=== PATIENT | female | born 1965 | race Caucasian/White ===

== ENCOUNTER 2019-10-14 16:37 | Emergency (ER) | payer OTHER, SELFPAY ==
[2019-10-14] VITALS (19 sets, daily range): BP systolic 111–165; BP diastolic 86–108; PULSE 78–108; RESP 11–24; TEMP 37.6–37.7; O2SAT 93–96
--- NOTE | ~2019-10-14 | XR_ITS ---
EXAMINATION: XR chest 1V portable 10/14/2019 18:18 INDICATION: Dyspnea, cough and fever PROCEDURE: 2 view chest COMPARISON: 05/23/2014 FINDINGS: The lungs are clear. The cardiomediastinal silhouette is within normal limits. There are no pleural effusions. There is no pneumothorax suspected. IMPRESSION: 1: NO ACUTE CARDIOPULMONARY DISEASE. Reviewed, dictated and finalized at location A.
--- NOTE | 2019-10-14 17:02 | ECG_ITS ---
Measurements Intervals [place] Rate: 93 P: 46 [place]: 166 QRS: 32 QRSD: 89 T: 41 QT: 363 QTc: 452 Interpretive Statements SINUS RHYTHM BORDERLINE T WAVE ABNORMALITY- ANTERIOR LEADS BORDERLINE ECG Electronically Signed On 10-15-2019 7:02:43 CDT by Carlos Manuel Viera D.O.
--- NOTE | 2019-10-14 17:15 | ED.SOB ---
HPI - SOB/Dyspnea General Chief Complaint: Shortness of Breath/Dyspnea Stated Complaint: SOB Time Seen by Provider: 10/14/19 17:05 Source: patient Mode of arrival: ambulatory Limitations: no limitations History of Present Illness HPI Narrative: Patient is a 54-year-old female who presents to the emergency department with complaint of cough, shortness of breath, wheezing, low-grade temperature elevation, and myalgias. Patient reports onset of symptoms 3 days ago. 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 Patient has underlying history of asthma and COPD. Patient has been using her albuterol inhaler on occasion, but has not used it today. Someone from [employer] [facility] did called nursing staff and alert they were sending patient in for evaluation. MD elicited complaint: shortness of breath and cough Pertinent past history: COPD and asthma Timing: constant Known history of: COPD and asthma Associated symptoms: fever (Temperature 99-100), cough (Nonproductive), wheezing and other (Myalgias) Related Data Allergies Allergy/AdvReac Type Severity Reaction Status Date / Time ampicillin Allergy Mild Unknown Verified 10/14/19 17:06 Review of Systems Review of Systems: All systems reviewed & are unremarkable except as noted in HPI and below Constitutional: Constitutional: Reports fatigue and Reports fever(s) Respiratory: Respiratory: Reports cough, Reports dyspnea and Reports wheezing Musculoskeletal: Musculoskeletal: Reports myalgias PMFSH Past Medical History Medical History (Updated 10/14/19 @ 19:58 by Sara Ruvalcaba MD) Asthma COPD (chronic obstructive pulmonary disease) Depression Hyperlipidemia Hypertension Obstructive sleep apnea TIA (transient ischemic attack) Surgical History Surgical History (Updated 10/14/19 @ 17:17 by Sara Ruvalcaba MD) History of bilateral breast reduction surgery History of bladder suspension procedure History of sinus surgery History of tonsillectomy Social History Social History (Updated 10/14/19 @ 17:18 by Sara Ruvalcaba MD) Smoking status: Former smoker Additional smoking assessment comments: Quit 1 year ago Gender identity (if verbalized by the patient): Female Exam Const: General: cooperative, no acute distress and alert Nutritional Appearance: well nourished Orientation/consciousness: patient oriented x3 Limitations: no limitations HENMT: Mouth: Yes lip normal and Yes moist mucous membranes Resp: Effort & Inspection: normal respiratory effort Auscultation: wheezes scattered wheezes Cardio: Rate: regular rate Rhythm: regular rhythm GI: GI Palp: Yes Soft to palpation and No Tenderness to palpation present (GI) Auscultation: normal bowel sounds Skin: General skin exam: normal color Neuro: General: patient oriented x3 Cognition (Neuro): normal cognition Speech: normal speech Extrem: General: normal to inspection, full ROM and no clubbing, cyanosis or edema Psych: Mental Status: mental status grossly normal Affect: normal affect Attitude: cooperative Course Course Emergency Course: Patient stable in appearance and appropriate for outpatient management. Coronavirus testing completed given patient works at the [employer] and is symptomatic. Patient with wheezing, but due to limited supply of albuterol inhalers, inhaler treatment not initiated in the emergency department. Patient states she feels like she is breathing okay and has her inhaler in her car and can give herself a dose when she leaves the emergency department. Patient advised to follow-up test results with her primary care provider and to self quarantine. Vital Signs Vital signs: Vital Signs Temperature 99.7 F H 10/14/19 17:02 Pulse Rate 97 10/14/19 17:02 Respiratory Rate 14 10/14/19 17:02 Blood Pressure
[2019-10-14 17:34] LABS: Basophils Absolute Auto 0.1 K/mm3 (0.0-0.1); Basophils Percent Auto 0.9 % (0.2-1.2); Eosinophils Absolute Auto 1.3 K/mm3 (0-0.3); Eosinophils Percent Auto 15.7 % (0-4.4); Hematocrit 44.5 % (37.0-47.0); Hemoglobin 14.9 g/dL (12.0-15.0); Immature Granulocyte Absolute 0.03 K/mm3 (0.00-0.031); Immature Granulocyte Percent A 0.4 % (0-0.5); Lymphocytes Percent Auto 28.4 % (18.3-44.2); Mean Corpuscular HGB Conc 33.5 g/dl (32-36); Mean Corpuscular Hemoglobin 28.1 pg (26-34); Mean Corpuscular Volume 83.8 fl (80-100); Mean Platelet Volume 9.7 fl (7.4-10.4); Monocytes Absolute Auto 0.7 K/mm3 (0.1-0.6); Monocytes Percent Auto 7.8 % (2.6-8.5); Neutrophils Percent Auto 46.8 % (45.5-73.1); Platelet Count Result 316 k/mm3 (150-375); Red Blood Count 5.31 M/mm3 (4.2-5.4); Red Cell Distribution Width 12.7 % (11.5-14.5); White Blood Count 8.5 K/mm3 (4.5-10.0)
[2019-10-14 18:19] LABS: Alanine Aminotransferase 33 U/L (4-35); Albumin Level 4.1 g/dL (3.5-5.1); Alkaline Phosphatase 119 U/L (38-126); Aspartate Amino Transferase 41 U/L (14-36); Bilirubin,Total 0.3 mg/dL (0.2-1.3); Blood Urea Nitrogen 12 mg/dL (7-17); Calcium 9.5 mg/dL (8.4-10.2); Carbon Dioxide 29 mmol/L (22-30); Chloride 101 mmol/L (98-107); Estimated CRCL calculation 77 ml/min; Estimated Glomerular Filt Rate > 60; Glucose 104 mg/dL (65-105); Potassium 3.6 mmol/L (3.4-5.0); Sodium 134 mmol/L (137-145)
[2019-10-15 13:31] LABS: SARS-CoV-2 RNA PCR Negative
== END 2019-10-14 20:43 | disposition home or self-care (01) ==
PROVIDERS: Emergency Provider Emergency Medicine
DX: J44.9 Chronic obstructive pulmonary disease, unspecified (principal); Z20.828 Contact with and (suspected) exposure to other viral communicable diseases; E78.5 Hyperlipidemia, unspecified; I10 Essential (primary) hypertension; G47.33 Obstructive sleep apnea (adult) (pediatric); Z86.73 Personal history of transient ischemic attack (TIA), and cerebral infarction without residual deficits; R94.31 Abnormal electrocardiogram [ECG] [EKG]; Z87.891 Personal history of nicotine dependence
CPT/HCPCS: 36415; 71045; 80053; 85025; 87635; 93005; 99283; U0003

== ENCOUNTER 2022-06-13 12:33 | Emergency (ER) | payer OTHER, SELFPAY ==
--- NOTE | ~2022-06-13 | XR_ITS ---
AP and lateral views of the left hip Clinical history: Pain Findings: No acute fracture or dislocation is seen. Osseous alignment is anatomic. Bilateral hip and SI joint spaces are preserved. Soft tissues are unremarkable. Impression: No significant abnormality is seen. Reviewed, dictated and finalized at location [] ICAL SPECIALIST Impression: No significant abnormality is seen.
--- NOTE | 2022-06-13 12:45 | ED.GENADULT ---
HPI - General Adult General Chief complaint: Unspecified Stated complaint: lt hip pain/denies fall or injury Time Seen by Provider: 06/13/22 13:24 Source: patient, RN notes reviewed and old records reviewed Mode of arrival: ambulatory Limitations: no limitations History of Present Illness HPI narrative: 57-year-old female presents to the [facility] with 5 days of left hip pain. Has tried naproxen, Tylenol and ibuprofen called primary spiritual care coordinator, was told to come to the [facility] for pain management. Walks with a normal gait. No injury. No redness, bruising noted Related Data Allergies Allergy/AdvReac Type Severity Reaction Status Date / Time ampicillin Allergy Mild Unknown Verified 06/13/22 13:47 Review of Systems Review of Systems: All systems reviewed & are unremarkable except as noted in HPI and below Constitutional: Constitutional: Reports no additional constitutional complaints Eyes: Eyes: Reports no additional eye complaints ENT: Reports system reviewed and no additional complaints, except as documented Cardiovascular: Cardiovascular: Reports no additional cardiovascular complaints, Denies chest pain and Denies dyspnea Respiratory: Respiratory: Reports no additional respiratory complaints, Denies chest congestion, Denies cough and Denies dyspnea Gastrointestinal: Gastrointestinal: Reports no additional gastrointestinal complaints, Denies abdominal pain, Denies nausea and Denies vomiting Musculoskeletal: Musculoskeletal: Reports as per HPI and Reports arthralgias ( left hip) Integumentary/Breasts: Skin/Breast: Reports system reviewed and no additional complaints, except as docu Neurologic: Reports system reviewed and no additional complaints, except as documented Psychiatric: Psychiatric: Reports no additional psychiatric complaints Allergic/Immunologic: Allergic/Immunologic: Reports no additional allergic/immunologic complaints PMFSH Past Medical History Medical History Asthma COPD (chronic obstructive pulmonary disease) Depression Hyperlipidemia Hypertension Obstructive sleep apnea TIA (transient ischemic attack) Surgical History Surgical History History of bilateral breast reduction surgery History of bladder suspension procedure History of sinus surgery History of tonsillectomy Social History Social History Smoking status: Former smoker Additional smoking assessment comments: Quit 1 year ago Gender identity (if verbalized by the patient): Female Comments At the time of my signature, I reviewed and agree with the nursing past medical, surgical, social, and family history. There is no relevant family history pertinent to the patient complaint. Exam Const: General: cooperative, healthy appearing, comfortable, no acute distress, well developed, alert and well nourished Nutritional Appearance: well nourished Orientation/consciousness: patient oriented x3 Limitations: no limitations HENMT: Head: normal to inspection Ears: hearing grossly normal bilaterally and external ears normal Face/Nose/Sinus: Normal external nose present, Normal nares present, Normal nasal mucous membranes and turbinates present and normal facial exam Face and sinus: normal facial exam Mouth: Yes Normal oral and palatal mucosa present, Yes lip normal and Yes moist mucous membranes Eyes: General: appearance normal, both eyes and all related structures Alignment and Position: alignment normal Periorbital: periorbital findings normal Conjunctivae: conjunctivae normal Pupils: Equal, round and reactive pupils present EOM: EOMs intact bilaterally Neck: Neck: normal visual inspection, full ROM, no lymphadenopathy and no meningeal signs Chest: Chest palpation & inspection: normal inspection of the chest Resp: Effort & Inspection: normal respiratory eff
[2022-06-13 12:54] VITALS: BP 119/67; PULSE 74; RESP 18; TEMP 36.6; O2SAT 98
== END 2022-06-13 14:12 | disposition home or self-care (01) ==
PROVIDERS: Emergency Provider Nurse Practitioner
DX: M25.552 Pain in left hip (principal); Z87.891 Personal history of nicotine dependence; J44.9 Chronic obstructive pulmonary disease, unspecified; E78.5 Hyperlipidemia, unspecified; I10 Essential (primary) hypertension; Z86.73 Personal history of transient ischemic attack (TIA), and cerebral infarction without residual deficits
CPT/HCPCS: 73502; 99213; G0463

== ENCOUNTER 2024-03-05 11:44 | Emergency (ER) | payer OTHER, SELFPAY ==
--- NOTE | ~2024-03-05 | XR_ITS ---
Clinical Indication: Chest tightness PA and lateral views of the chest: Comparison: 10/14/2019 Findings: The lungs are clear, without evidence of focal consolidation or pleural effusion. Cardiome diastinal silhouette is within normal limits. Bones and soft tissues are unremarkable. Impression: Normal chest. Reviewed, dictated and finalized at location . Impression: Normal chest.
--- NOTE | 2024-03-05 11:46 | ECG_ITS ---
Test Date: 2024-03-05 11:50:28 Measurements Intervals [place] Rate: 80 P: 28 WI: 174 QRS: 11 QRSD: 94 T: 24 QT: 388 QTc: 449 Interpretive Statements SINUS RHYTHM BASELINE ARTIFACT- I, II, III, AVR, AVL, AVF, V1, V3-V6 NORMAL ECG No previous ECG available for comparison Electronically Signed On 03-05-2024 15:25:33 CDT by Carlos Manuel Viera D.O.
[2024-03-05 12:02] LABS: Basophils Absolute Auto 0.1 K/mm3 (0.0-0.1); Basophils Percent Auto 0.8 % (0.2-1.2); Eosinophils Absolute Auto 0.2 K/mm3 (0-0.3); Eosinophils Percent Auto 1.7 % (0-4.4); Hematocrit 41.2 % (37.0-47.0); Hemoglobin 13.7 g/dL (12.0-15.0); Immature Granulocyte Absolute 0.03 K/mm3 (0.00-0.031); Immature Granulocyte Percent A 0.3 % (0-0.5); Lymphocytes Absolute Auto 3.94 K/mm3 (0.9-3.2); Lymphocytes Percent Auto 41.3 % (18.3-44.2); Mean Corpuscular HGB Conc 33.3 g/dl (32-36); Mean Corpuscular Hemoglobin 28.8 pg (26-34); Mean Corpuscular Volume 86.6 fl (80-100); Mean Platelet Volume 8.9 fl (7.4-10.4); Monocytes Absolute Auto 0.8 K/mm3 (0.1-0.6); Neutrophils Absolute Auto 4.6 K/mm3 (1.3-6.7); Neutrophils Percent Auto 47.9 % (45.5-73.1); Platelet Count Result 294 k/mm3 (150-375); Red Blood Count 4.76 M/mm3 (4.2-5.4); Red Cell Distribution Width 13.2 % (11.5-14.5); White Blood Count 9.5 K/mm3 (4.5-10.0)
[2024-03-05 12:12] LABS: Prothrombin Time 13.1 Seconds (11.1-14.7)
[2024-03-05 12:13] LABS: Partial Thromboplastin Time 29.8 Seconds (22.3-36.8)
[2024-03-05 12:15] LABS: Alanine Aminotransferase 43 U/L (6-35); Albumin Level 4.4 g/dL (3.5-5.1); Alkaline Phosphatase 114 U/L (38-126); Anion Gap 9 mmol/L (4-12); Aspartate Amino Transferase 39 U/L (14-36); Bilirubin,Total 0.6 mg/dL (0.2-1.3); Blood Urea Nitrogen 14 mg/dL (7-17); Carbon Dioxide 25 mmol/L (22-30); Chloride 103 mmol/L (98-107); Estimated Glomerular Filt Rate > 60; Glucose 97 mg/dL (65-110); Lipase 65 U/L (23-300); Sodium 137 mmol/L (137-145)
[2024-03-05 12:17] VITALS: BP 144/88; PULSE 76; RESP 16; TEMP 36.6; O2SAT 99
[2024-03-05 12:25] LABS: Troponin I < 0.012 ng/mL (0.000-0.034)
[2024-03-05 13:51] VITALS: BP 143/72; PULSE 65; RESP 18; TEMP 36.3; O2SAT 96
--- NOTE | 2024-03-05 15:18 | ECG_ITS ---
Test Date: 2024-03-05 15:21:40 Measurements Intervals [place] Rate: 67 P: 25 ID: 176 QRS: 10 QRSD: 87 T: 14 QT: 418 QTc: 441 Interpretive Statements SINUS RHYTHM LOW QRS VOLTAGE IN PRECORDIAL LEADS BASELINE ARTIFACT- I, II, III, AVR, AVL, AVF, V1 BORDERLINE ECG Compared to ECG 03/05/2024 11:50:28 Low QRS voltage now present Electronically Signed On 03-05-2024 15:32:45 CDT by Carlos Manuel Viera D.O.
[2024-03-05 15:45] LABS: Troponin I < 0.012 ng/mL (0.000-0.034)
--- NOTE | 2024-03-05 16:57 | ED.CHESTPAIN ---
HPI - Chest Pain General Chief Complaint: Chest Pain Stated Complaint: chest tightness Time Seen by Provider: 03/05/24 16:17 Source: patient and family Mode of arrival: ambulatory Limitations: no limitations History of Present Illness HPI narrative: patient presents with report of chest tightness described assist we see sensation that occurred after she was lying down. She notes that it did not change with position changes despite her trying to get up around anemia takes shower. In total, it lasted approximately 1-1/2 hours. It was associated with dizziness And palpitations. She did note that she became tearful during it she was becoming worried since this had never happened before. It was associated with shortness of breath. No nausea. She does not follow with a sound cutter. Her primary care physician is through [place]. Patient's daughter presents with her who had come home during the event and she noted that her mom seemed anxious and she thought she might be having a panic attack. No history of this happening before. She previously had been told that she had hypertension and was on medication for this but that was many years ago when she was smoking and after quitting smoking and losing weight she was told she did not carry this diagnosis anymore. She does have a diagnosis of hyperlipidemia for which she is on Lipitor. she had a TIA 10 years ago carries a history of atherosclerosis. No personal history of myocardial infarction diabetes mellitus. She does have a history of COPD. No family history of a myocardial infarction before the age of 65. No lower extremity edema. She notes that there have been a lot of stressors in life recently which was also why she felt guilty about laying down 1st place her symptoms 1st started. Related Data Allergies Allergy/AdvReac Type Severity Reaction Status Date / Time ampicillin Allergy Mild Unknown Verified 06/13/22 13:47 [facility] Past Medical History Medical History (Updated 03/06/24 @ 09:16 by Jennifer Bautista MD) Asthma Atherosclerosis COPD (chronic obstructive pulmonary disease) Depression Hyperlipidemia Obstructive sleep apnea TIA (transient ischemic attack) Surgical History Surgical History History of bilateral breast reduction surgery History of bladder suspension procedure History of sinus surgery History of tonsillectomy Social History Social History (Updated 03/06/24 @ 09:18 by Jennifer Bautista MD) Smoking status: Former smoker Additional smoking assessment comments: Quit approx 2018 Gender identity (if verbalized by the patient): Female Exam Narrative: GENERAL: Well-appearing, well-nourished, and in no acute distress. HEAD: Normocephalic, atraumatic. EYES: Non injected, non icteric ENT: Nares clear, no rhinorrhea or epistaxis. NECK: Supple. CHEST: Speaking in full sentences. No respiratory distress. lungs clear to auscultation bilaterally HEART: Regular rate and rhythm. . ABDOMEN: Soft, nondistended. EXTREMITIES: Normal range of motion. No lower extremity edema. SKIN: Warm, dry, no rash. NEURO: No focal deficits. Alert and oriented x3. PSYCH: congruent mood and affect slightly anxious, nearly tearful the with appropriate eye contact and remains calm. Not tremulous. Course Vital Signs Vital signs: Vital Signs Temperature 97.8 F 03/05/24 12:17 Pulse Rate 76 03/05/24 12:17 Respiratory Rate 16 03/05/24 12:17 Blood Pressure 144/88 H 03/05/24 12:17 Pulse Oximetry 99 03/05/24 12:17 Oxygen Delivery Room Air 03/05/24 12:17 Temperature 97.3 F L 03/05/24 13:51 Pulse Rate 65 03/05/24 13:51 Respiratory Rate 18 03/05/24 13:51 Blood Pressure 143/72 H 03/05/24 13:51 Pulse Oximetry 96 03/05/24 13:51 Oxygen Delivery Room Air 03/05/24 15:52 MDM - Chest Pain MDM Narrative Medical decision making narrative: 59-year-old fe
[2024-03-05] MEDS: LORazepam (*CRX) 0.5 MG TABLET PO (17:26)
== END 2024-03-05 17:29 | disposition home or self-care (01) ==
PROVIDERS: Student in an Organized Health Care Education/Training Program; Emergency Provider Student in an Organized Health Care Education/Training Program
DX: R07.89 Other chest pain (principal); R74.01 Elevation of levels of liver transaminase levels; E78.5 Hyperlipidemia, unspecified; Z86.73 Personal history of transient ischemic attack (TIA), and cerebral infarction without residual deficits; J44.9 Chronic obstructive pulmonary disease, unspecified; J45.909 Unspecified asthma, uncomplicated; G47.33 Obstructive sleep apnea (adult) (pediatric); F32.A Depression, unspecified; Z87.891 Personal history of nicotine dependence
CPT/HCPCS: 36415; 71046; 80053; 83690; 84484; 85025; 85610; 85730; 93005; 99284; A9270

== ENCOUNTER 2025-01-08 19:36 | Emergency (ER) | payer OTHER, SELFPAY ==
--- NOTE | ~2025-01-08 | XR_ITS ---
XR knee RT min 4V Ordering provider: Aria Medrano MD History: . injury . Comparison: None. FINDINGS: BONES: No acute fracture or dislocation. JOINT SPACES: Normal. SOFT TISSUES: Normal. IMPRESSION: No acute osseous abnormality right knee. Reviewed, dictated and finalized at location A.
--- OUTSIDE RECORDS SUMMARY | 2025-01-08 19:39 | XMS_ITS | Continuity of Care Document ---
Author Name [facility] Organization [facility] Care Team Providers [facility] [place] Department Manager Name Role Phone [facility] Unavailable Unavailable Problems Combined list of problems from Department of Defense and Veterans Affairs facilities. It does not include entries that were removed or entered in error. Problem Status Onset Date Problem Type Date of Resolution Comments Source History of ischemic stroke Active 025 Diagnosis [facility] Left knee pain Active 025 Diagnosis [facility] Pain of bilateral knee joints Active 025 Diagnosis [facility] Tobacco dependence in remission Active 020 Condition [facility] Multiple nodules of lung Active 019 Condition [facility] Common variable agammaglobulinemia Active 019 Condition [facility] Obstructive sleep apnea syndrome Active 019 Condition [facility] Essential (primary) hypertension Active 015 Condition DoD Hyperlipidemia, unspecified Active 015 Condition DoD Mild persistent asthma, uncomplicated Active 015 Condition DoD Tobacco use Active 015 Condition DoD Major depressive disorder, single episode, unspecified Active 015 Condition DoD Chronic frontal sinusitis Active 011 Condition [facility] Loss of sense of smell Active 011 Condition [facility] Alcohol dependence Active Condition 005 5C-[facility] Astigmatism Active Condition [facility] Chronic allergic conjunctivitis Active Condition [facility] Chronic obstructive pulmonary disease Active Condition [facility]55C[facility] Degenerative disorder of macula Active Condition [facility]ula [facility] Diverticulosis of colon Active Condition [facility] Eczema1 Active Condition Outside So urce Comment: patient has dermatitis of hands not responding to st eroids, needs dermatology evaluation suspect sporiasis 00[facility] Essential hypertension Active Condition [facility] Ganglion cyst of right wrist Active Condition [facility] Genuine stress incontinence Active Condition 5C[facility] Hyperlipidemia Active Condition [facility] Hypermetropia Active Condition [facility] Lactase deficiency2 Active Condition Outside Source Comment: Because patient does not tolerate milk products, she would like to take a calcium supplement. However, she has heard that some of her medications and calcium cannot be taken at the same time. I was not aware of any drug interaction, nor did the program site a drug interaction with this prescription. She will buy calcium citrate for supplement. [facility] Major depressive disorder Active Condition [facility] Moderate persistent asthma Active Condition -[facility] Osteopenia Active Condition [facility] Plantar fasciitis Active Condition 54 C[facility] Refractive error Active Condition Ambul at[facility] Pharmacy Allergic rhinitis, unspecified Active Condition DoD ASTHMA WITH ACUTE EXACERBATION Active Condition DoD Overweight Active Condition DoD ACTINIC KERATOSIS Inactive Condition DoD Administrative Evaluation Services Inactive Condition DoD SINUSITIS Active Condition DoD allergies Active Condition DoD CONJUNCTIVITIS CHRONIC ALLERGIC Active Condition DoD Outpatient Physician Consultation Active Condition DoD joint pain, localized Inactive Condition DoD BREAST LUMP OR MASS Active Condition Do D Patient Education - Asthma Active Condition DoD DISTURBANCE OF SMELL ANOSMIA BILATERALLY Active Condition DoD NICOTINE DEPENDENCE Active Condition Do D Patient Education - Action Plan Asthma Active Condition DoD GANGLION RIGHT WRIST Active Condition D oD REFRACTIVE ERROR - HYPERMETROPIA Active Condition DoD RETINAL DEFECTS WITHOUT DETACHMENT Active Condition DoD changed sexual interest (libido): decreased Active Condition DoD irregular length of menstrual periods Active Condition DoD HYPERTENSION (SYSTEMIC) Active Condition DoD regular cycle intervals less than 21 days Active Condition DoD Laboratory Studies Active Condition DoD ALCOHOL DEPENDENCE (ALCOHOLISM) Active Condition DoD joint pain, localized in the knee Active Condition DoD ESSENTIAL HYPERTENSION Active Condition DoD PREHYPERTENSION Active Condition DoD Wheezing Active Condition DoD Blood Pressure Isolated Elevated Active Condition DoD ROUTINE GYNECOLOGICAL EXAM WITH CERVICAL PAP SMEAR Inactive Condition DoD TMJ pain Inactive Condition DoD OTITIS MEDIA CHRONIC SEROUS BOTH EARS Active Condition Take Zyrtec -D twice a day, salt water gargles DoD blood in urine Active Condition DoD HYPERLIPIDEMIA Active Condition Based on labs from 15 May 2007 DoD MACULAR DEGENERATION NONEXUDATIVE DRY Active Condition L eye DoD ASTIGMATISM - REGULAR Active Condition DoD PRESBYOPIA Active Condition DoD LACTASE DEFICIENCY SYNDROME Active Condition Because patient does not tolerate milk products, she would like to take a calcium supplement. However, she has heard that some of her medications and calcium cannot be taken at the same time. I was not aware of any drug interaction, nor did the program site a drug interaction with this prescription. She will buy calcium citrate for supplement. 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 Pt instructed to contact his office for order. DoD visit for: refer patient without exam or treatment Inactive Condition DoD BRONCHITIS Inactive Condition DoD Preventive Medicine Estab Patient Checkup Adult 40-64 Inactive Condition pt due f or annual labs DoD ASTHMA MODERATE PERSISTENT Active Condition DoD ASTHMATIC BRONCHITIS Active Condition D oD ALLERGIC RHINITIS Active Condition DoD DEPRESSION Active Condition DoD visit for: issue repeat prescription Inactive Condition [facility] visit for: screening exam for malignant neoplasm cervix Active Condition [facility] visit for: issue repeat prescription for medication Inactive Condition 7 RX CETIRIZINE/P-E PHED (ZYRTEC-D 12 HOUR)--P ~TD RF1 #180 DS30 on 20 Jan 2007@1504 ~HCP Sig.Needed . . . . . . . . . . . . . . sPETERC 24JUL@1505 DoD STRESS INCONTINENCE Active Condition Do D ECZEMATOID DERMATITIS Active Condition patient has dermatitis of hands not responding to steroids, needs dermatology evaluation suspect sporiasis DoD exposed to tuberculosis Inactive Condition will perform tb testing [facility] Medications Combined list of outpatient medications from Department of Defense and Veterans Affairs facilities.Medications provided include 1) outpatient medications from the last 15 months, and 2) patient-reported medications. Medication Details Route Status Patient Instructions Prescription Expires Prescription Number Last Dispense Date Ordering Provider Order Date Order Qty Source Albuterol (Eqv-ProAir HFA) 90 mcg/inh inhalation aerosol 2 puff(s), Inhale, every 6 hr, 0 total refill(s ), Maintena nce Inhala tion (breat he in) Discont inued 01/13/20242023 [facility] Albuterol (Eqv-Proven til HFA) 90 mcg/inh inhalation aerosol 6 g, 0 Refill(s ), INHALE 2 PUFFS BY MOUTH EVERY 4 HOURS NEEDED, 0 total refill(s ), Soft Stop Discont inued 03/06/20242023 0055C[facility]3 [facility] albuterol 90 mcg/inh aerosol inhaler 2 puff(s), Inhale, every 4 hr, PRN wheezing as needed for, # 8.5 g, 1 total refill(s ), Maintena nce, 8.5g = 1 inhaler, Pharmacy : [facility] #[id number] Inhala tion (breat he in) Ordered 2023 8.5 0055C[facility]3 [facility] albuterol 90 mcg/inh aerosol inhaler 0 Refill(s ), 0 total refill(s ), Soft Stop Discont inued 03/06/20242023 0055C-[address] [place] [address] Christopher ARIPiprazol e 5 mg oral tablet 30 EA, 0 Refill(s ), 0 total refill(s ), Soft Stop Discont inued 01/13/20242023 0055C[facility]3 [facility] Christopher atorvastati n 20 mg oral tablet 90 tab(s), 0 Refill(s ), 0 total refill(s ), Soft Stop Discont inued 01/13/20242023 0055C[facility] atorvastati n 20 mg oral tablet TAKE ONE TABLET BY MOUTH EVERY DAY, # 90 EA, 3 total refill(s ), Acute Complet ed 07/11/2023 3 2023 90.0 Ambulat ory Pharmac y benzocaine 20% mucous membrane gel 1 appl(s), Topical, QID, PRN pain, # 11.9 g, 0 total refill(s ), Acute, 01/13/24 10:24:10 AM CDT, Pharmacy : [facility] #[id number] Topica l (on the skin) Discont inued 01/13/20242023 11.9 0055C-[address] [place] [address] brexpiprazo le Oral, Daily, 0 total refill(s ), Maintena nce Oral (given by mouth) Discont inued 01/13/20242023 0055C-[address] [place] [address] Christopher budesonide 0.5 mg/2 mL inhalation suspension 3 Refill(s ), 0 total refill(s ), Soft Stop Discont inued 01/13/20242023 0055C[facility]3 [facility] Christopher budesonide- formoterol 160 mcg-4.5 mcg/inh inhalation aerosol 3 Refill(s ), 0 total refill(s ), Soft Stop Discont inued 01/13/20242023 0055C-[address] [place] [address] Christopher calcium carbonate 600 mg oral tablet, chewable tab(s), Chew, Daily, 0 total refill(s ), Maintena nce Chew Ordered 2023 0055C-[address] [place] [address] Christopher cariprazine 1.5 mg oral capsule 3 mg, oral, 0 Refill(s ), 0 total refill(s ), Soft Stop Discont inued 01/13/20242023 0055C-[address] [place] [address] [facility] citalopram 40 mg oral tablet 1 tab(s), Oral, Daily, # 30 tab(s), 0 total refill(s ), Maintena nce Oral (given by mouth) Ordered 2023 30.0 0055C-[address] [place] [address] [facility] CITALOPRAM HBR (CITALOPRAM HYDROBROMID E), 40MG, TABLET, ORAL, [facility], 500 ea. BOTTLE Cancele d [id number] : 2023 0 Pharmac y Data Transac tion Service Facilit y doxycycline hyclate 100 mg oral capsule 1 cap(s), Oral, BID, Take with plenty of water. Avoid lying down for at least 30 minutes after taking medicati on., X 7 days, # 14 cap(s), 0 total refill(s ), Acute, 03/04/24 4:02:00 PM CDT, Pharmacy : [facility] , Other (Please specify in comments ) Oral (given by mouth) Complet ed 03/04/2024 2023 14.0 0055C[facility] dupilumab (Dupixent) Pre-filled Pen 300 mg/2 mL subcutaneou s solution 300 mg, SubCutan eous, every 2 wk, # 4 mL, 0 total refill(s ), Maintena nce SubCut aneous (under the skin) Discont inued 01/13/20242023 4.0 0055C[facility] dupilumab (Dupixent) Pre-filled Syringe 300 mg/2 mL subcutaneou s solution 8 syringe( s), 0 Refill(s ), 0 total refill(s ), Soft Stop Discont inued 01/13/20242023 0055C[facility]3 [facility] Dupixent 0 total refill(s ), Maintena nce Ordered 2023 0055C[facility]3 [facility] Fish Oil oral capsule 1 cap(s), Oral, Daily, # 100 cap(s), 0 total refill(s ), Maintena nce Oral (given by mouth) Ordered 2023 100.0 0055C[facility]3 [facility] ibuprofen 200 mg oral tablet oral, 0 Refill(s ), 0 total refill(s ), Soft Stop Ordered 2023 0055C[facility]3 [facility] lamoTRIgine (blue dose pack) 25 mg oral tablet 25 mg, Oral, BID, 0 total refill(s ), Maintena nce Oral (given by mouth) Ordered 2024 0055C-3 [facility] Lipitor 20 mg oral tablet 1 tab(s), Oral, Daily, for choleste rol, # 90 tab(s), 3 total refill(s ), Maintena nce Oral (given by mouth) Ordered 2023 90.0 0055C-3 [facility] magnesium glycinate 200 mg oral tablet tab(s), Oral, 0 total refill(s ), Maintena nce Oral (given by mouth) Ordered 2023 0055C[facility]3 [facility] meloxicam 7.5 mg oral tablet 1 tab(s), Oral, every day at bedtime, # 14 tab(s), 0 total refill(s ), Maintena nce, Pharmacy : [facility] Oral (given by mouth) Ordered 5 2024 14.0 0055C-[address] [place] [address] [facility] mepolizumab (Nucala) 100 mg subcutaneou s injection vial 100 mg, SubCutan eous, every 4 wk, # 1 EA, 0 total refill(s ), Maintena nce SubCut aneous (under the skin) Discont inued 01/13/20242023 1.0 0055C-[address] [place] [address] [facility] mepolizumab (Nucala) Prefilled Syringe 100 mg/mL subcutaneou s solution 1 syringe( s), 0 Refill(s ), 0 total refill(s ), Soft Stop Discont inued 03/06/20242023 0055C-[address] [place], [place] [address]M[facility] multivitami n adult, oral tablet Oral, Daily, 0 total refill(s ), Maintena nce Oral (given by mouth) Ordered 2023 0055C-[address] [place] [address] Christopher NUCALA (mepolizuma b), 100 MG/ML, SYRINGE, SUBCUT, GLAXOSMITHK LINE, 1 ml SYRINGE Active [id number] 4 2023 1 Pharmac y Data Transac tion Service Facilit y NUCALA (mepolizuma b), 100 MG/ML, SYRINGE, SUBCUT, GLAXOSMITHK LINE, 1 ml SYRINGE Active [id number] 4 2023 1 Pharmac y [facility] t[facility] Service [facility] y Probiotic 10 Ultra Strength Oral, Daily, 0 total refill(s ), Maintena nce Oral (given by mouth) Ordered 2023 0055C-[address] [place] [address] [facility] Trelegy Ellipta 200 mcg-62.5 mcg-25 mcg/inh inhalation powder 1 puff(s), Inhale, Daily, # 60 EA, 0 total refill(s ), Maintena nce, quantity of 60 EA = 30 day supply Inhala tion (breat he in) Discont inued 07/30/20242024 60.0 0055C-[address] [place] [address] [facility] Vitamin B12 0 total refill(s ), Maintena nce Ordered 2023 [facility] Vitamin D2 1.25 mg (50,000 intl units) oral capsule 1.25 mg, Oral, every week, # 12 cap(s), 0 total refill(s ), Maintena nce, 12 caps = 90-day supply, Pharmacy : [facility] Oral (given by mouth) Discont inued 07/30/2024 4 2024 12.0 [facility] Vitamin D3 0 total refill(s ), Maintena nce Ordered 2023 [facility] Vitamin D3 125 mcg (5000 intl units) oral capsule 1 cap(s), Oral, Daily, with food, # 90 cap(s), 2 total refill(s ), Maintena nce, Pharmacy : [facility] Oral (given by mouth) Ordered 4 2023 90.0 [facility]55C[facility] Vraylar 1.5 mg oral capsule 30 EA, 0 Refill(s ), 0 total refill(s ), Soft Stop Discont inued 01/13/20242023 [facility] Allergies, Adverse Reactions, Alerts Combined list of allergies from Department of Defense and Veterans Affairs facilities. It does not include entries that were removed or entered in error. Substance Category Reaction Severity Reaction type Status Date Reported Comments Source ampicillin Propensity to adverse reactions to drug Rash Active 3 Unknown Organizatio n AMPICILLIN (AMPICILLIN TRIHYDRATE) Drug allergy (disorder) Rash active 3 [employer] Immunizations Combined list of available immunizations from the Department of Defense and Veterans Affairs facilities. Immunization Series Date Given Administered By Site Reaction Lot Number CVX Code Drug Machine Hose Cutter Status Comments Source zoster vaccine, inactivated 2022 DARLENERBRUNN ER 187 complet ed Result Comment: Route: Unknown Manufactu rer: OT (SKB) [facility] influenza, injectable, quadrivalent- pf 2022 DARLENERBRUNN ER 150 complet ed Result Comment: Route: Unknown Manufactu rer: OTH (SKB) 0055C[facility] Influenza, inj, MDCK, quadrivalent- pf 2021 DARLENERBRUNN ER 171 complet ed Result Comment: Route: Unknown Manufactu rer: [facility] (SEQ) 5C[facility]3 [facility] COVID Vaccine Moderna 2020 207 complet ed COVID Vaccine Moderna 06/07/21 Given Ambulat ory Pharmac y COVID-19, mRNA, LNP-S, PF, 100 mcg or 50 mcg dose 2020 ERLINDA Moderna [employer], Inc. (MOD) Not Given COVID-19, mRNA, LNP-S, PF, 100 mcg or 50 mcg dose DoD influenza, injectable, quadrivalent- pf 2020 DARLENERBRUNN ER [id number] 150 complet ed Result Comment: Manufactu rer: [employer] 5C[facility]3 [facility] COVID Vaccine Pfizer 2020 DARLENERBRUNN ER 208 complet ed Result Comment: Unit: Unknown Manufactu rer: Pfizer Manufactu [facility] (PFR) 5C-3 [facility] COVID-19, mRNA, LNP-S, PF, 30 mcg/0.3 mL dose 2020 [place] (PFR) Not Given COVID-19, mRNA, LNP-S, PF, 30 mcg/0.3 mL dose DoD COVID Vaccine Moderna 2020 zzRig Arm [id number] 207 complet ed COVID Vaccine Moderna 09/06/20 Given Ambulat ory Pharmac y SARS-COV-2 (COVID-19) vaccine, mRNA, spike protein, LNP, preservative free, 100 mcg or 50 mcg dose 1 2020 Unknown, Provider [id number] 207 Moderna [employer], Inc. (MOD) complet ed SARS-COV- 2 (COVID-19 ) vaccine, mRNA, spike protein, LNP, preservat liseth free, 100 mcg or 50 mcg dose DoD COVID Vaccine Moderna 2020 zzRig ht Arm [id number] 207 complet ed COVID Vaccine Moderna 08/09/20 Given Ambulat ory Pharmac y COVID Vaccine Moderna 2020 [id number] complet ed COVID Vaccine Moderna 08/09/20 Given Ambulat ory Pharmac y SARS-COV-2 (COVID-19) vaccine, mRNA, spike protein, LNP, preservative free, 100 mcg or 50 mcg dose 1 2020 Unknown, Provider [id number] 207 Moderna [employer] (MOD) complet ed SARS-COV- 2 (COVID-19 ) vaccine, mRNA, spike protein, LNP, preservat liseth free, 100 mcg or 50 mcg dose DoD influenza, injectable, quadrivalent- pf 2018 [facility] [id number] 150 [employer] complet ed influenza , injectabl e, quadrival ent-pf 05/20/19 Given Ambulat ory Pharmac y influenza, injectable, quadrivalent- pf 2018 [id number] 150 [employer] complet ed influenza , injectabl e, quadrival ent-pf 05/20/19 Given Ambulat ory Pharmac y Influenza, injectable, quadrivalent, preservative free 1 2018 Unknown, Provider [id number] 150 [employer] (SEQ) complet ed Influenza , injectabl e, quadrival ent, preservat liseth free DoD influenza, injectable, quadrivalent- pf [id number] [employer] complet ed influenza , injectabl e, quadrival ent-pf 04/03/18 Given Ambulat ory Pharmac y influenza, injectable, quadrivalent- pf 2017 [id number] 150 [employer] complet ed influenza , injectabl e, quadrival ent-pf 04/03/18 Given Ambulat ory Pharmac y Influenza, injectable, quadrivalent, preservative free 1 2017 Unknown, Provider [id number] 150 [employer] (SEQ) complet ed Influenza , injectabl e, quadrival ent, preservat liseth free DoD Influenza, inj, MDCK, quadrivalent- pf 2016 zzLef t Arm [id number] 171 [employer] complet ed Influenza , inj, MDCK, quadrival ent-pf 04/09/17 Given Ambulat ory Pharmac y Influenza, inj, MDCK, quadrivalent- pf [id number] 171 [employer] complet ed Influenza , inj, MDCK, quadrival ent-pf 04/09/17 Given Ambulat ory Pharmac y Influenza, injectable, Madin [employer]augh Canine Kidney, preservative free, quadrivalent 1 2016 Unknown, Provider [id number] 171 [employer] (SEQ) complet ed Influenza , injectabl e, Madin [employer]augh Canine Kidney, preservat liseth free, quadrival ent DoD pneumococcal polysaccharid e, 23 valent 2016 zzRig ht Arm [id number] 33 Merck & Company Inc complet ed pneumococ tony polysacch aride, 23 valent 07/30/16 Given Ambulat ory Pharmac y pneumococcal polysaccharid e, 23 valent 2016 [id number] 33 Merck & Company Inc complet ed pneumococ tony polysacch aride, 23 valent 07/30/16 Given Ambulat ory Pharmac y pneumococcal polysaccharid e vaccine, 23 valent 1 2016 Unknown, Provider [id number] 33 Merck (MSD) complet ed pneumococ tony polysacch aride vaccine, 23 valent DoD tetanus, diphtheria, acellular pertu is 2015 zzL t Arm [id number] 115 GlaxoSmithKli ne complet ed tetanus, diphtheri a, acellular pertussis 05/20/16 Given Ambulat ory Pharmac y tetanus, diphtheria, acellular pertu is 2015 [id number] [employer]oSmithK[employer] ne complet ed tetanus, diphtheri a, acellular pertussis 05/20/16 Given Ambulat ory Pharmac y tetanus toxoid, reduced diphtheria toxoid, and acellular pertu is vaccine, adsorbed 1 2015 Unknown, Provider [id number] [facility] (SKB[facility] complet ed tetanus toxoid, reduced diphtheri a toxoid, and acellular pertussis vaccine, adsorbed DoD Influenza, inj, MDCK, quadrivalent- pf 2015 171 [employer] complet ed Influenza , inj, MDCK, quadrival ent-pf 04/02/16 Given Ambulat ory Pharmac y Influenza, injectable, MDCK, preservative free, quadrivalent 2015 ALUL, () Not Given Influenza , injectabl e, MDCK, preservat liseth free, quadrival ent DoD Influenza, inj, MDCK, quadrivalent- pf 2015 MS.DANIELnDAW SCHULTZ [id number] 171 complet ed Result Comment: Manufactu rer: [employer] 0055C-[address] [place] [address] influenza, live, intranasal,qu adrivalent 2013 [id number] 149 Medimmune Inc comple t ed influenza , live, intranasa l,quadriv alent 04/22/14 Given Ambulat ory Pharmac y influenza, live, intranasal,qu adrivalent 2013 [id number] 149 Medimmune Inc comple t ed influenza , live, intranasa l,quadriv alent 04/22/14 Given Ambulat ory Pharmac y influenza, live, intranasal, quadrivalent 1 2013 Unknown, Provider [id number] 149 MedImmune, Inc. (MED) complet ed influenza , live, intranasa l, quadrival ent DoD influenza, seasonal, injectable 2012 zzLef t Arm [id number] 141 sanofi pasteur complet ed influenza , seasonal, injectabl e 04/21/13 Given Ambulat ory Pharmac y influenza, seasonal, injectable 2012 [id number] 141 sanofi pasteur complet ed influenza , seasonal, injectabl e 04/21/13 Given Ambulat ory Pharmac y Influenza, seasonal, injectable 11 2012 Unknown, Provider [id number] 141 Sanofi Pasteur ([facility]) complet ed Influenza , seasonal, injectabl e DoD influenza virus vaccine,split 2008 zzLef t Arm [id number] 15 sanofi pasteur complet ed influenza virus vaccine,s plit 03/22/09 Given Ambulat ory Pharmac y influenza virus vaccine,split 2008 [id number] 15 sanofi pasteur complet ed influenza virus vaccine,s plit 03/22/09 Given Ambulat ory Pharmac y influenza virus vaccine, split virus (incl. purified surface antigen)-reti red CODE 1 2008 Unknown, Provider [id number] 15 Sanofi Pasteur ([facility]) complet ed influenza virus vaccine, split virus (incl. purified surface antigen)- retired CODE DoD influenza virus vaccine,split 2007 zzLef t Arm [id number] 15 GlaxoSmithKli ne complet ed influenza virus vaccine,s plit 05/19/08 Given Ambulat ory Pharmac y influenza virus vaccine, split virus (incl. purified surface antigen)-reti red CODE 1 2007 Unknown, Provider [id number] 7AA 15 [facility] (SKB) complet ed influenza virus vaccine, split virus (incl. purified surface antigen)- retired CODE DoD influenza virus vaccine,split [facility] [id number] 15 GlaxoSmithKli ne complet ed influenza virus vaccine,s plit 05/01/07 Given Ambulat ory Pharmac y influenza virus vaccine,split 2006 [id number] 3AA 15 GlaxoSmithKli ne complet ed influenza virus vaccine,s plit 05/01/07 Given Ambulat ory Pharmac y influenza virus vaccine, split virus (incl. purified surface antigen)-reti red CODE 1 2006 Unknown, Provider [id number] 15 [place]) complet ed influenza virus vaccine, split virus (incl. purified surface antigen)- retired CODE DoD influenza virus vaccine,split [facility] [id number] 4AA 15 GlaxoSmithKli ne complet ed influenza virus vaccine,s plit 08/25/06 Given Ambulat ory Pharmac y influenza virus vaccine,split 2006 [id number] 4AA 15 GlaxoSmithKli ne complet ed influenza virus vaccine,s plit 08/25/06 Given Ambulat ory Pharmac y influenza virus vaccine, split virus (incl. purified surface antigen)-reti red CODE 1 2006 Unknown, Provider [id number] 4AA 15 [facility] (SK) complet ed influenza virus vaccine, split virus (incl. purified surface antigen)- retired CODE DoD influenza virus vaccine,split 2004 [facility] Arm [id number] 15 sanofi pasteur complet ed influenza virus vaccine,s plit 06/05/05 Given Ambulat ory Pharmac y influenza virus vaccine, split virus (incl. purified surface antigen)-reti red CODE 1 2004 Unknown, Provider [id number] 15 Sanofi Pasteur ([facility]) complet ed influenza virus vaccine, split virus (incl. purified surface antigen)- retired CODE [facility] influenza virus vaccine, whole virus 2003 [facility] Arm [id number] 16 sanofi pasteur complet ed influenza virus vaccine, whole virus 05/08/04 Given Ambulat ory Pharmac y influenza virus vaccine, whole virus 2003 [id number] 16 sanofi pasteur complet ed influenza virus vaccine, whole virus 05/08/04 Given Ambulat ory Pharmac y influenza virus vaccine, whole virus 1 2003 Unknown, Provider [id number] 16 Sanofi Pasteur ([facility]) complet ed influenza virus vaccine, whole virus DoD influenza virus vaccine, whole virus 2002 16 complet ed influenza virus vaccine, whole virus 05/17/03 Given Ambulat ory Pharmac y influenza virus vaccine, whole virus 2 2002 Unknown, Provider 16 Transcribed (TRS) complet ed influenza virus vaccine, whole virus DoD tuberculin purified protein derivative 2002 [id number] 96 sanofi pasteur complet ed tuberculi n purified protein derivativ e 05/03/03 Given Ambulat ory Pharmac y tuberculin purified protein derivative 2000 [id number] 96 sanofi pasteur complet ed tuberculi n purified protein derivativ e 04/22/01 Given Ambulat ory Pharmac y tuberculin purified protein derivative 2000 zzLef t Arm [id number] 96 sanofi pasteur complet ed Patient Tolerance : Negative Ambulat ory Pharmac y tuberculin skin test; purified protein derivative solution, intradermal 1 2000 Unknown, Provider [id number] Sanofi Pasteur ([facility]) complet ed tuberculi n skin test; purified protein derivativ e solution, intraderm al DoD influenza virus vaccine, whole virus 2000 zzLef t Arm [id number] 16 sanofi pasteur complet ed influenza virus vaccine, whole virus 04/09/01 Given Ambulat ory Pharmac y yellow fever vaccine 2000 zzLef t Arm [id number] 37 sanofi pasteur complet ed yellow fever vaccine 04/09/01 Given Ambulat ory Pharmac y typhoid vaccine, inactivated 2000 zzLef t Arm [id number] [facility] complet ed typhoid vaccine, inactivat ed 04/09/01 Given Ambulat ory Pharmac y yellow fever vaccine 2000 [id number] 37 sanofi pasteur complet ed yellow fever vaccine 04/09/01 Given Ambulat ory Pharmac y typhoid vaccine, inactivated 2000 [id number] [facility] complet ed typhoid vaccine, inactivat ed 04/09/01 Given Ambulat ory Pharmac y influenza virus vaccine, whole virus 2000 [id number] 16 sanofi pasteur complet ed influenza virus vaccine, whole virus 04/09/01 Given Ambulat ory Pharmac y influenza virus vaccine, whole virus 1 2000 Unknown, Provider [id number] 16 Sanofi Pasteur ([facility]) complet ed influenza virus vaccine, whole virus DoD yellow fever vaccine 1 2000 Unknown, Provider [id number] Sanofi Pasteur ([facility]) complet ed yellow fever vaccine DoD typhoid vaccine, parenteral, other than acetone-kille d, dried 1 2000 Unknown, Provider [id number] Milana[employer] (CON) complet ed typhoid vaccine, parentera l, other than acetone-k illed, dried DoD influenza virus vaccine, whole virus 2000 Fabian t Arm [id number] [employer] complet ed influenza virus vaccine, whole virus 08/12/00 Given Ambulat ory Pharmac y influenza virus vaccine, whole virus 2000 [id number] [employer] complet ed influenza virus vaccine, whole virus 08/12/00 Given Ambulat ory Pharmac y influenza virus vaccine, whole virus 1 2000 Unknown, Provider [id number] Pineda (EVN) complet ed influenza virus vaccine, whole virus DoD hepatitis A adult vaccine 1999 52 complet ed hepatitis A adult vaccine 11/27/99 Given Ambulat ory Pharmac y tetanus-dipht h toxoids (Td) adult/adol 1999 09 complet ed tetanus-d iphth toxoids (Td) adult/ado l 11/27/99 Given Ambulat ory Pharmac y tetanus-dipht h toxoids (Td) adult/adol 1999 09 complet ed tetanus-d iphth toxoids (Td) adult/ado l 11/27/99 Given Ambulat ory Pharmac y tetanus and diphtheria toxoids, adsorbed, preservative free, for adult use (2 Lf of tetanus toxoid and 2 Lf of diphtheria toxoid) 1 1999 Unknown, Provider 09 () complet ed tetanus and diphtheri a toxoids, adsorbed, preservat liseth free, for adult use (2 Lf of tetanus toxoid and 2 Lf of diphtheri a toxoid) DoD hepatitis A vaccine, adult dosage 2 1999 Unknown, Provider 52 () complet ed hepatitis A vaccine, adult dosage DoD hepatitis A adult vaccine 1998 [id number] [employer] complet ed hepatitis A adult vaccine 05/07/99 Given Ambulat ory Pharmac y influenza virus vaccine, whole virus 1998 [id number] [employer] complet ed influenza virus vaccine, whole virus 05/07/99 Given Ambulat ory Pharmac y hepatitis A adult vaccine 1998 [id number] [employer] complet ed hepatitis A adult vaccine 05/07/99 Given Ambulat ory Pharmac y influenza virus vaccine, whole virus 1 1998 Unknown, Provider [id number] 16 [employer] (CON) complet ed influenza virus vaccine, whole virus DoD hepatitis A vaccine, adult dosage 1 1998 Unknown, Provider [id number] Merck (MSD) complet ed hepatitis A vaccine, adult dosage DoD poliovirus vaccine, live, oral 1989 02 complet ed polioviru s vaccine, live, oral 02/09/90 Given Ambulat ory Pharmac y poliovirus vaccine, live, oral 1989 02 complet ed polioviru s vaccine, live, oral 02/09/90 Given Ambulat ory Pharmac y trivalent poliovirus vaccine, live, oral 1 1989 Unknown, Provider 02 () complet ed trivalent polioviru s vaccine, live, oral [facility] tetanus-dipht h toxoids (Td) adult/adol 1989 09 complet ed tetanus-d iphth toxoids (Td) adult/ado l 01/01/90 Given Ambulat ory Pharmac y tetanus-dipht h toxoids (Td) adult/adol 1989 09 complet ed tetanus-d iphth toxoids (Td) adult/ado l 01/01/90 Given Ambulat ory Pharmac y tetanus and diphtheria toxoids, adsorbed, preservative free, for adult use (2 Lf of tetanus toxoid and 2 Lf of diphtheria toxoid) 1 1989 Unknown, Provider 09 () complet ed tetanus and diphtheri a toxoids, adsorbed, preservat liseth free, for adult use (2 Lf of tetanus toxoid and 2 Lf of diphtheri a toxoid) [facility] Results Combined list of recent chemistry, hematology and other laboratory results from Department of Defense and [facility], ranging from 15 months to all on record, depending upon the facility. Order Name Results Value Reference Range Date Interpretation Specimen Comments Source Chemistr y Vitamin D 25 OH 29.0 ng/mL 30.0 - 100.0 06/14 L Interpretiv e Data: Classificat ion of Vitamin D Status: Deficient: <20 ng/mL Insufficien t: 20-29 ng/mL Sufficient: 30-100 ng/mL Possible Toxicity: >100 ng/mL This assay is for the quantitativ e determinati on of total 25 (OH) vitamin D. It is intended as an aid in the determinati on of vitamin D sufficiency . Results should always be interpreted in conjunction with the patient's medical history, clinical presentatio n, and other findings. Testing performed by [employer] EPILAB Chemistr y Vitamin D 25 OH 14.0 ng/mL 30.0 - 100.0 01/19 L Interpretiv e Data: Classificat ion of Vitamin D Status: Deficient: <20 ng/mL Insufficien t: 20-29 ng/mL Sufficient: 30-100 ng/mL Possible Toxicity: >100 ng/mL This assay is for the quantitativ e determinati on of total 25 (OH) vitamin D. It is intended as an aid in the determinati on of vitamin D sufficiency . Results should always be interpreted in conjunction with the patient's medical history, clinical presentatio n, and other findings. Testing performed by [employer] FSAM EPILAB Chemistr y Triglyceri nura 270 mg/dL 7 - 149 01/19 H Interpretiv e Data: AGES 0-9: Desirable: < 75 mg/dL Borderline High: 75-99 mg/dL High: >/= 100 mg/dL AGES 10-19: Desirable: < 90 mg/dL Borderline High: 90-129 mg/dL High: >/= 130 mg/dL ADULTS: Desirable: < 150 mg/dL Borderline High: 150-199 mg/dL High: >/= 240 mg/dL Very High: >/= 500 mg/dL [facility] Chemistr y LDL/HDL 2 01/19 [facility] Chemistr y Chol/HDL 3 mg/dL 01/19 [facility] Chemistr y Cholestero l Total 146 mg/dL 01/19 N Interpretiv e Data: According to the [place] [employer] : AGES 0-19: Desirable: < 170 mg/dL Borderline High: 170-199 mg/dL High Blood Cholesterol : >/= 200 mg/dL ADULTS: Desirable < 200 mg/dL Borderline High: 200-239 mg/dL High Blood Cholesterol : >/= 240 mg/dL [facility] Chemistr y HDL Cholestero l 46 mg/dL 40 - 59 01/19 N Interpretiv e Data: HDL (HIGH DENSITY LIPOPROTEIN ): ADULTS: Low: < 40 mg/dL High: >/= 60 mg/dL AGES 0 -19: Low: < 40 mg/dL Borderline Low: 40 - 45 mg/dL Acceptable: > 45 mg/dL [facility] Chemistr y LDL 108 mg/dL 100 - 130 01/19 N Interpretiv e Data: AGES 0-19: Desirable: < 110 mg/dL Borderline High: 110-129 mg/dL High: >/= 130 mg/dL ADULTS: Desirable: <100 mg/dL Near/above optimal: 100-130 mg/dL Borderline High: 131-159 mg/dL High: 160-189 mg/dL Very High: 190 mg/dL [facility] AP Specimen s HPV Typing High Risk Negative 12 (01/13/24 11:22 AM) 01/12 N Interpretiv e Data: HPV Typing High Risk Negative: NEGATIVE for concurrentl y detecting the rest of the 12 high risk types HPV DNA (31,33,35,3 9,45,51,52, 56,58,59,66 and 68) without differentia tion. HPV Typing High Risk Positive: POSITIVE for concurrentl y detecting the rest of the 12 high risk types HPV DNA (31,33,35,3 9,45,51,52, 56,58,59,66 and 68) without differentia tion. The jia HPV Test is a qualitative in vitro test for the detection Human Papillomavi bashir in clinician-c ollected cervical and vaginal specimens. It detects the following high-risk HPV types 16, 18, 31, 33, 35, 39, 45, 51, 52, 56, 58, 66, and 68. Note: The modificatio n to specimen source of vaginal was developed and its performance characteris tics determined by [facility], [facility]. Vaginal source has not been cleared or approved by the U. S. Food and Drug Administrat [employer]. This modified vaginal specimen HPV test is for clinical purposes. This laboratory is certified under the Clinical Laboratory Improvement Amendments of 1988 (CLIA-88) as qualified to perform high complexity clinical laboratory testing. Clinician collected PreservCyt ThinPrep vaginal specimen are an approved additional specimen source, based on an internal laboratory validation. Limitations : A negative result does NOT preclude the presence of HPV infection because results depend on adequate specimen collection, absence of inhibitors and sufficient DNA to be detected. Correlation with cytologic findings is recommended as applicable. Questions about process or methodology contact Molecular Department at [phone] or [phone]. Unknown Organizat ion AP Specimen s HPV Genotype 16 Negative 13 (01/13/24 11:22 AM) 01/12 N Interpretiv e Data: HPV GENOTYPE 16 Negative: NEGATIVE for HPV DNA genotype 16 DNA. HPV GENOTYPE 16 Positive: POSITIVE for HPV genotype 16 DNA. The jia HPV Test is a qualitative in vitro test for the detection Human Papillomavi bashir in clinician-c ollected cervical and vaginal specimens. It detects the following high-risk HPV types 16, 18, 31, 33, 35, 39, 45, 51, 52, 56, 58, 66, and 68. Note: The modificatio n to specimen source of vaginal was developed and its performance characteris tics determined by [facility], [facility]. Vaginal source has not been cleared or approved by the U. S. Food and Drug Administrat [employer]. This modified vaginal specimen HPV test is for clinical purposes. This laboratory is certified under the Clinical Laboratory Improvement Amendments of 1988 (CLIA-88) as qualified to perform high complexity clinical laboratory testing. Clinician collected PreservCyt ThinPrep vaginal specimen are an approved additional specimen source, based on an internal laboratory validation. Limitations : A negative result does NOT preclude the presence of HPV infection because results depend on adequate specimen collection, absence of inhibitors and sufficient DNA to be detected. Correlation with cytologic findings is recommended as applicable. Questions about process or methodology contact Molecular Department at or [phone]. Unknown Organizat ion AP Specimen s HPV Genotype 18 Negative 11 (01/13/24 11:22 AM) 01/12 N Interpretiv e Data: HPV GENOTYPE 18 Negative: NEGATIVE for HPV genotype 18 DNA. HPV GENOTYPE 18 Positive: POSITIVE for HPV genotype 18 DNA. The jia HPV Test is a qualitative in vitro test for the detection Human Papillomavi bashir in clinician-c ollected cervical and vaginal specimens. It detects the following high-risk HPV types 16, 18, 31, 33, 35, 39, 45, 51, 52, 56, 58, 66, and 68. Note: The modificatio n to specimen source of vaginal was developed and its performance characteris tics determined by [facility], [facility]. Vaginal source has not been cleared or approved by the U. S. Food and Drug Administrat [employer]. This modified vaginal specimen HPV test is for clinical purposes. This laboratory is certified under the Clinical Laboratory Improvement Amendments of 1988 (CLIA-88) as qualified to perform high complexity clinical laboratory testing. Clinician collected PreservCyt ThinPrep vaginal specimen are an approved additional specimen source, based on an internal laboratory validation. Limitations : A negative result does NOT preclude the presence of HPV infection because results depend on adequate specimen collection, absence of inhibitors and sufficient DNA to be detected. Correlation with cytologic findings is recommended as applicable. Questions about process or methodology contact Molecular Department at or [phone]. Unknown Organizat ion AP Specimen s AP Cyto 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 Patient: Marizol Gilbert Specimen #: [id number] Patholog ist: Keny arriola MD, Lt. Col, [employer], [place] Accessio n: 4 [facility] DEPARTME NT OF PATHOLOG Y [address] [place] [address] Floor [address] [place] [address] Cytology Gynecolo gic Report Patient: Marizol Gilbert Specimen #: [id number] [facility] ID:: [id number] 84 [facility] r #: [id number] Taken: 4 11:22 /Age: 8 1965 (Age: 58) Received : 4 10:26 Physicia n(s:): LACIE MARINO Reported : 4 Specimen (s) Received Taken Rec Thin Prep - Cervical w/o reflex HPV 4 11:22 4 10:26 Final Diagnosi s Thin Prep - Cervical w/o reflex HPV: Satisfac tory for evaluati on; endocerv ical componen t present. Atypical squamous cells of undeterm ined signific ance (ASCUS). This Pap test was evaluate d with the assistan ce of the Thin Prep Test Imaging System. Due to cytologi c findings at the Research Aide microsco pe or selectio n of the case for QC, comprehe nsive manual re-scree florencio by a cytotech nologist was required . Elect ronicall y Signed by Keny arriola, , Lt. Col, [facility], Clinical Diagnosi s and History ASCUS neg HPV '16, 07/21; routine screen if neg Prior History Signed Out Specimen # Interpre tation 07/17/19 22 [id number] ASCUS - Atypical Squamous Cells of Undeterm ined Signific ance (Salguero) 08/15/19 16 [id number] EPITHELI AL CELL ABNORMAL ITIES 02/02/20 11 [id number] NEGATIVE 05/08/20 09 [id number] NEGATIVE 05/11/20 08 [id number] NEGATIVE CPT Codes: A; 12792, 81704 The Pap test is a screenin g test for precurso rs of squamous cell carcinom a with an irreduci ble false negative rate of around 5%. It is not designed to detect glandula r lesions. A negative test does not ensure that no disease is present. 01/12 0055C-375 th [facility] Chemistr y Hemoglobin A1c 5.8 % 4.0 - 5.6 12/08 H Interpretiv e Data: Normal: 4.0 - 5.6% Increased Risk: 5.7 - 6.4% Diabetic Range: 6.5% For patients without diabetes, the normal range for the hemoglobin A1c test is between 4% and 5.6%. Hemoglobin A1c levels between 5.7% and 6.4% indicate increased risk of diabetes, and levels of 6.5% or higher indicate diabetes. Because studies have repeatedly shown that out-of-cont rol diabetes results in complicatio ns from the disease, the goal for people with diabetes is a hemoglobin A1c less than 7%. The higher the hemoglobin A1c, the higher the risks of developing complicatio ns related to diabetes. If confirmatio n is needed, consider recalling the patient and ordering Hemoglobin Electrophor esis. [facility] Chemistr y eAvg Glucose 120 mg/dL 12/08 [facility] Hematolo gy Basophil % Auto 0.9 % 0.0 - 2.5 09/08 N [facility] Hematolo gy Baso Absolute 0.1 x10^3/mc L 0.0 - 0.1103 09/08 N [facility] Hematolo gy Eosinophil % Auto 13 % 0 - 5 09/08 H [facility] Hematolo gy Eos Absolute 1.2 x10^3/mc L 0.0 - 0.7103 09/08 H [facility] Hematolo gy Lymphocyte % Auto 38.6 % 20.0 - 40.0 09/08 N [facility] Hematolo gy [place] Absolute 0.6 x10^3/mc L 0.2 - 0.8103 09/08 N [facility] Hematolo gy Lymph Absolute 3.7 x10^3/mc L 1.2 - 4.0103 09/08 N [facility] Hematolo gy Neutro Absolute 4.0 x10^3/mc L 2.0 - 7.0103 09/08 N [facility] Hematolo gy Monocyte % Auto 6 % 1 - 12 09/08 N [facility] Hematolo gy Neutrophil % Auto 41.2 % 46.0 - 77.0 09/08 L [facility] Miscella neous Sendouts Test Name.LC urine culture 09/08 [facility] Miscella neous Sendouts Misc Specimen Source? urine 09/08 [facility] Patricia neous Sendouts Req Order?.LC [id number] 09/08 [facility] Maitecella neous Sendouts Misc Result.LC See Images 09/08 Interpretiv e Data: Attention [facility]: This order is to be processed manually. No electronic order will be sent. [facility] Chemistr y eGFR CKD EPI 86 mL/min/1 .73_m2 09/08 Interpretiv e Data: Estimated Glomerular Filtration Rate (eGFR) calculated using the 2020 Chronic Kidney Disease-Epi demiology (CKD-EPI) Collaborati on creatinine equation; units of measure are mL/min/1.73 m2. Results are only valid for adults (>=18 years) whose serum creatinine is in steady state. eGFR calculation s are not valid for patients with acute kidney injury and for patients on dialysis. Creatinine- based estimates of kidney function may also be inaccurate in patients with reduced creatinine generation due to decreased muscle mass (e.g., malnutritio n, severe hypoalbumin emia, sarcopenia, chronic neuromuscul ar disease, amputations , severe heart failure or liver disease) and in patients with increased creatinine generation due to increased muscle mass (e.g., muscle builders, anabolic steroids) or increased dietary intake. CKD is diagnosed based on abnormaliti es of kidney structure or function, present for >3 months, with implication s for health and disease. CKD is classified and staged based on cause, eGFR and albuminuria (quantified as urine albumin to creatinine ratio). An eGFR >60 mL/min/1.73 m2 in the absence of increased urine albumin excretion or structural abnormaliti es does not CKD. eGFR provides only an estimate of measured GFR within +/- 30% for most patients. As mentioned, nutritional status and muscle mass, among many factors, may lead to inaccuracy in the estimate. Consider ordering the creatinine- cystatin C panel if better accuracy is needed for clinical decision-rafa dugan. eGFR (mL/min/1.7 3 m2) CKD stage Interpretat ion Normal 60-89 Mild decrease 45-59 Mild to moderate decrease 30-44 Moderate to severe decrease 15-29 Severe decrease <15 Kidney failure [facility] Hematolo gy ESR Auto Plus 7 mm/h 0 - 30 09/08 N Interpretiv e Data: The clinical significanc e of an ESR result obtained from an abnormal sample, including but not limited to icteric, lipemic, cold agglutinins , anemic conditions, low hemoglobin concentrati ons, hemolysis, or any pathologica l condition that interferes or prevents a clear red cell to plasma interface is subject to a high degree of variability . -375 [facility] Miscella neous Sendouts IgM, Total.LC 135 mg/dL 09/08 Result Comment: Performed At: [address] [id number] Salvador Yap PhD Ph:[phone] 5A-375 th [facility] Miscella neous Sendouts IgA, Total.LC 140 mg/dL 09/08- [facility] Miscella neous Sendouts IgG, Total.LC 1121 mg/dL 09/08-375 th [facility] Urinalys is UA Protein Negative mg/dL 09/08 N -375 [facility] Urinalys is UA pH 6.0 *NA* (09/09/23 2:56 PM) 5 - 8 09/08- th [facility] Urinalys is UA Nitrite Negative (09/09/23 2:56 PM) 09/08 N - [facility] Urinalys is UA Leuk Esterase Small *ABN* (09/09/23 2:56 PM) 09/08 A 5A-375 th [facility] Urinalys is UA Ketones Negative mg/dL 09/08 N -375 [facility] Urinalys is UA Glucose Negative mg/dL 09/08 N -375 [facility] Urinalys is UA Epi Squam 5-9 09/08-375 [facility] Urinalys is UA Color Yellow *NA* (09/09/23 2:56 PM) 09/08-375 th [facility] Urinalys is UA Clarity Clear *NA* (09/09/23 2:56 PM) 09/08-375 [facility] Urinalys is UA Blood Negative (09/09/23 2:56 PM) 09/08 N 375 [facility] Urinalys is UA Bili Negative (09/09/23 2:56 PM) 09/08 N [facility] Urinalys is UA Bacteria 1+ *ABN* (09/09/23 2:56 PM) 09/08 A 5A-375 [facility] Urinalys is UA WBC 3-4 /HPF 09/08 N [facility] Urinalys is UA Urobilinog en 0.2 E.U./dL 0.2 - 1.0.. 09/08 N 375 [facility] Urinalys is UA Spec [place] 1.020 1.001 - 1.035 09/08 N [facility] Urinalys is UA RBC 0-2 /HPF 09/08 N 375 [facility] Hematolo gy Platelets 328.0 x10^3/mc L 150.0 - 450.0103 09/08 N [facility] Hematolo gy MPV 9.3 fL 7.4 - 10.4 09/08 N 375 [facility] Hematolo gy RDW 13.2 % 11.0 - 14.9 09/08 N [facility] Hematolo gy RBC 5.0 x10^6/mc L 3.6 - 5.0106 09/08 N [id number] [facility] Hematolo gy WBC 9.6 x10^3/mc L 4.0 - 11.0103 09/08 N 375 [facility] Hematolo gy Hematocrit 43 % 34 - 46 09/08 N 375 [facility] Hematolo gy MCH 28 pg 28 - 33 09/08 N [facility] Hematolo gy Hemoglobin 14.1 g/dL 11.0 - 15.0 09/08 N [facility] Hematolo gy MCV 86 fL 80 - 97 09/08 N [facility] Hematolo gy MCHC 32.9 g/dL 33.0 - 36.5 09/08 L [facility] Immunolo gy/Serol ogy ANGELA Scrn Negative 2 (09/09/23 2:56 PM) 09/08 N Interpretiv e Data: - ANGELA Screen Titer Result Further Testing - Negative <1:80 No ANGELA Negative N/A Yes: [employer] and dsDNA PANEL Cytoplasmic Stain Observed Positive 1:80 - 1:160 No Positive >/=1:320 Yes: [employer] and dsDNA PANEL MIL[employer]ROS Ag and dsDNA PANEL contains Centromere, dsDNA, Betsey-1, Ribosomal P, STAMPING DIE MAKER BENCH/Sm, Ro-52, Scl-70, Sm, SS-A and SS-B. The performance characteris tics of this assay have not been evaluated for use in pediatric populations . Methodology : Indirect Immunofluor escence Assay (IIFA) 56[employer] EPILAB Immunolo gy/Serol ogy Anti-SSA/R o Ab Negative 16 (09/09/23 2:56 PM) 09/08 N Interpretiv e Data: The performance characteris tics of this assay have not been evaluated for use in pediatric populations . METHODOLOGY : Enzyme-Link ed Immunosorbe nt Assay (FCO). [employer] FSAM EPILAB Immunolo gy/Serol ogy Anti-SSB/L a Ab Negative 17 (09/09/23 2:56 PM) 09/08 N Interpretiv e Data: The performance characteris tics of this assay have not been evaluated for use in pediatric populations . METHODOLOGY : Enzyme-Link ed Immunosorbe nt Assay (FCO). 56[employer] FSAM EPILAB Chemistr y Phosphorus 3.5 mg/dL 2.3 - 4.7 09/08 N -375 [facility] Chemistr y CO2 25 mmol/L 22 - 29 09/08 N [facility] Chemistr y Chloride 104 mmol/L 98 - 107 09/08 N [facility] Chemistr y Glucose Lvl 131 mg/dL 74 - 99 09/08 H [facility] Chemistr y Creatinine Level 0.80 mg/dL 0.57 - 1.11 09/08 N 375 [facility] Chemistr y Sodium 140 mmol/L 136 - 145 09/08 N [id number] [facility] Chemistr y Potassium Lvl 3.8 mmol/L 3.5 - 5.1 09/08 N [facility] Chemistr y Albumin 4.10 g/dL 3.50 - 5.20 09/08 N [facility] Chemistr y AGAP 11.00 0.00 - 15.00 09/08 N 5A [facility] Chemistr y BUN/Creat Ratio 15 mg/dL 12 - 20 09/08 N [id number] [facility] Chemistr y BUN 12 mg/dL 7 - 20 09/08 N [facility] Chemistr y Calcium 9.7 mg/dL 8.4 - 10.2 09/08 N [facility] Vital Signs Combined list of inpatient and outpatient Vital Signs from Department of Defense and Veterans Affairs, ranging from 12 months to all on record, depending upon the facility. Vital Sign Value Date Comments Source Peripheral Pulse Rate 76 bpm 03/12/2024 18:27:00 0055C-375th [facility] Mean Arterial Pressure, Calc 94 mm[Hg] 03/12/2024 18:27:00 [facility] Temperature Oral 36.7 Mary Kay 03/12/2024 18:27:00 [facility] Respiratory Rate 18 br/min 03/12/2024 18:27:00 [facility] BP Site Left arm 03/12/2024 18:27:00 [facility] Blood Pressure Manual Automatic 03/12/2024 18:27:00 [facility] Systolic Blood Pressure 131 mm[Hg] 03/12/2024 18:27:00 [facility] Diastolic Blood Pressure 76 mm[Hg] 03/12/2024 18:27:00 [facility] Peripheral Pulse Rate 72 bpm 07/29/2024 19:50:00 [facility] Temperature Oral 36.6 Mary Kay 07/29/2024 19:50:00 [facility] Respiratory Rate 16 br/min 07/29/2024 19:50:00 [facility] BP Site Left arm 07/29/2024 19:50:00 [facility] Blood Pressure Manual Automatic 07/29/2024 19:50:00 [facility] Mean Arterial Pressure, Calc 96 mm[Hg] 07/29/2024 19:50:00 [facility] Systolic Blood Pressure 132 mm[Hg] 07/29/2024 19:50:00 [facility] Diastolic Blood Pressure 78 mm[Hg] 07/29/2024 19:50:00 [facility] Mean Arterial Pressure, Calc 98 mm[Hg] 09/17/2023 18:52:00 [facility] Systolic Blood Pressure 132 mm[Hg] 09/17/2023 18:52:00 [facility] Diastolic Blood Pressure 81 mm[Hg] 09/17/2023 18:52:00 [facility] Blood Pressure Manual Automatic 09/17/2023 18:52:00 [facility] BP Site Right arm 09/17/2023 18:52:00 [facility] Temperature Oral 36.8 Mary Kay 09/17/2023 18:52:00 [facility] Respiratory Rate 20 br/min 09/17/2023 18:52:00 [facility] Peripheral Pulse Rate 88 bpm 09/17/2023 18:52:00 [facility] Systolic Blood Pressure 123 mm[Hg] 12/01/2023 18:49:00 [facility] Diastolic Blood Pressure 69 mm[Hg] 12/01/2023 18:49:00 [facility] Temperature Oral 36.6 Mary Kay 12/01/2023 18:49:00 [facility] Respiratory Rate 18 br/min 12/01/2023 18:49:00 [facility] Peripheral Pulse Rate 85 bpm 12/01/2023 18:49:00 [facility] Mean Arterial Pressure, Calc 87 mm[Hg] 12/01/2023 18:49:00 [facility] Blood Pressure Manual Automatic 12/01/2023 18:49:00 [facility] BP Site Left arm 12/01/2023 18:49:00 [facility] Mean Arterial Pressure, Calc 96 mm[Hg] 09/09/2023 14:35:00 [facility] Systolic Blood Pressure 125 mm[Hg] 09/09/2023 14:35:00 [facility] Diastolic Blood Pressure 81 mm[Hg] 09/09/2023 14:35:00 [facility] BP Site Right arm 09/09/2023 14:35:00 [facility] Blood Pressure Manual Automatic 09/09/2023 14:35:00 [facility] Peripheral Pulse Rate 74 bpm 09/09/2023 14:35:00 [facility] Temperature Oral 36.8 Mary Kay 03/21/2023 14:58:00 [facility] BP Site Right arm 03/21/2023 14:58:00 [facility] Blood Pressure Manual Automatic 03/21/2023 14:58:00 [facility] Respiratory Rate 20 br/min 03/21/2023 14:58:00 [facility] Peripheral Pulse Rate 93 bpm 03/21/2023 14:58:00 [facility] Mean Arterial Pressure, Calc 87 mm[Hg] 03/21/2023 14:58:00 [facility] Systolic Blood Pressure 116 mm[Hg] 03/21/2023 14:58:00 [facility] Diastolic Blood Pressure 72 mm[Hg] 03/21/2023 14:58:00 [facility] BP Site Left arm 02/26/2024 20:32:00 [facility] Temperature Oral 36.7 Mary Kay 02/26/2024 20:32:00 [facility] Blood Pressure Manual Automatic 02/26/2024 20:32:00 [facility] Mean Arterial Pressure, Calc 108 mm[Hg] 02/26/2024 20:32:00 [facility] Respiratory Rate 16 br/min 02/26/2024 20:32:00 [facility] Peripheral Pulse Rate 84 bpm 02/26/2024 20:32:00 [facility] Systolic Blood Pressure 134 mm[Hg] 02/26/2024 20:32:00 [facility] Diastolic Blood Pressure 95 mm[Hg] 02/26/2024 20:32:00 [facility] Peripheral Pulse Rate 69 bpm 01/13/2024 15:13:00 [facility] Mean Arterial Pressure, Calc 93 mm[Hg] 01/13/2024 15:13:00 [facility] Respiratory Rate 16 br/min 01/13/2024 15:13:00 [facility] Systolic Blood Pressure 132 mm[Hg] 01/13/2024 15:13:00 [facility] Diastolic Blood Pressure 74 mm[Hg] 01/13/2024 15:13:00 [facility] Encounters Combined list of: 1) Encounters from [facility] facilities going backup to the last 18 months, not all VA inpatient encounters are included; 2) Encounters from the Department of [facility] facilities going backup to 280 months. Location Location Details Encounter Type Encounter Number Reason For Visit Attending Provider ADM Date DC Date Status Disposition Source [facility]) OUTPATIENT [id number] SHADI CONCEPCION 03/16 Released w/o Limitations [facility]) OUTPATIENT [id number] follow up on EDUARDO Wong 04/01 Released w/o Limitations [facility]) OUTPATIENT [id number] f/u on allergi EDUARDO Ponce 05/03 Released w/o Limitations [facility]) OUTPATIENT [id number] bronchi al problem EDUARDO MACIAS 05/23 Released w/o Limitations [facility]) TELE CONSULT [id number] patient called about asthma EDUARDO MACIAS 05/23 [facility]) OUTPATIENT [id number] f/u asthma EDUARDO MACIAS 06/06 Released w/o Limitations [facility]) OUTPATIENT [id number] referra l and excema EDUARDO MACIAS 08/23 Released w/o Limitations [facility]) OUTPATIENT [id number] CONSULT SAVANNAH MCCOLLUM 10/31 Released w/o Limitations [facility]) OUTPATIENT [id number] F-up for Medicat ion SAVANNAH MCCOLLUM Tc 01/17 Released w/o Limitations [facility]) [address] [place] [address]([facility]) TELE CONSULT [id number] Refill DANIEL PRUETT Rachael 02/[address] [place] [address]([facility]) [address] [place] [address]([facility]) TELE CONSULT [id number] needs referra EDUARDO Farah 02/[address] [place] [address] [address] [place] [address]([facility]) TELE CONSULT [id number] referra JOSE Stoddard V 11/[address] [place] [address]([facility]) [address] [place] [address] [facility])([facility] Non-GME FHI1) TELE CONSULT [id number] MED REFILL TRINIDAD LICEA 03/[address] [place] [address] [facility])(F amily Practic e Non-GME FHI1) [address] [place] [address] [facility])([facility] Non-GME FHI1) OUTPATIENT [id number] renewal allergy , celexa meds SHERICE CLARKE 04/10 Released w/o Limitations [address] [place] [address] [facility])(F amily Practic e Non-GME FHI1) [address] [place] [address] [facility])([facility] Non-GME FHI1) TELE CONSULT [id number] REFILL- -EDUARDA TAVERA 11/[address] [place] [address] [facility])(F amily Practic e Non-GME FHI1) [address] [place] [address] [facility])([facility] Non-GME FHI2) OUTPATIENT [id number] SELENE ZARATE 11/12 Released w/o Limitations [address] [place] [address] [facility])(F amily Practic e Non-GME FHI2) [address] [place] [address] [facility])([facility] Non-GME FHI1) TELE CONSULT [id number] Med refill - PCM EDUARDA Tavera 01/[address] [place] [address] [facility])(F amily Practic e Non-GME FHI1) [address] [place] [address] [facility] OUTPATIENT [id number] chest congest ion not getting any better SONIDOMICHELE RIZO Rachael 02/24 Released w/o Limitations [address] [place] [address] [facility] ([facility]F amily Practic e Non-GME FHI1) [address] [place] [address] [facility] ([facility] Non-GME FHI2) OUTPATIENT [id number] severe chest congest ion/see n before no improve mandy NATIVIDAD NAVARRO Arcenio 03/17 Released w/o Limitations [address] [place] [address] [facility]F amily Practic e Non-GME FHI2) [address] [place] [address] [facility] ([facility] Non-GME FHI1) OUTPATIENT [id number] persist ant cold and DIANE Jerry 05/12 Released w/o Limitations [address] [place] [address] [employer] ([facility])(F amily Practic e Non-GME FHI1) [address] [place] [address] [facility]) TELE CONSULT [id number] CHEST X-SARA, EDUARDA 05/[address] [place] [address] [facility]F amily Practic e Non-GME FHI1) [address] [place] [address] [facility]1) OUTPATIENT [id number] flu shot ESTEFANY RICARDO Arcenio 08/25 Released w/o Limitations [address] [place] [address] [facility]F amily Practic e Non-GME FHI1) [address] [place], [place] [address]B [facility]) OUTPATIENT [id number] chest congest ion RADHAVICKI DUDLEY Sally 09/08 Released w/o Limitations [address] [place] [address] [employer] ([facility]) [address] [place] [address] [employer] ([facility])([place] l[facility] gy) OUTPATIENT [id number] CHRONIC SINUSIT IS JASON RAMIREZ 11/04 Released w/o Limitations [address] [place] [address] [employer] ([facility])(O tolaryn gology) [address] [place] [address] [employer] [facility]1) OUTPATIENT [id number] breathi ng problem s ABE GUZMAN 11/05 Released w/o Limitations [facility] [employer] [facility] ([facility])(F amily Practic e Non-GME FHI1) [facility] ([facility])(All ergy Resource Sharing) OUTPATIENT [id number] NASAL POLYPS REBECCA FULLER 11/12 Released w/o Limitations [facility] ([facility])(A llergy Resourc e Sharing ) Medical [facility])([facility] Practice Non-GME FHI1) OUTPATIENT [id number] FOOT PAIN H#[phone] ABE GUZMAN 12/30 Released w/o Limitations [facility] ([facility]F amily Practic e Non-GME FHI1) [address] [place] [address] [facility] ([facility])([facility]ar Practice Non-GME FHI1) TELE CONSULT [id number] refill med - LEAH Lange 01/20[facility] ([facility])(F amily Practic e Non-GME FHI1) [facility] Medical [facility] ([facility])(All ergy Resource Sharing) OUTPATIENT [id number] f/u meds,tr eatment REBECCA FULLER 04/02 Released w/o Limitations [facility] ([facility])(A llergy Resourc e Sharing ) [address] [place] [address] [facility])(Opt ometry) OUTPATIENT [id number] annual eye exam AVELINA ARENAS 04/15 Released w/o Limitations [facility] ([facility])(O ptometr y) [address] [place] [address] [facility] Non[facility] F[facility]1) OUTPATIENT [id number] change meds from previou s pcm ABE GUZMAN 05/01 Released w/o Limitations [facility] ([facility])(F amily Practic e Non-GME FHI1) [address] [place] [address] [employer] [facility])([facility] Practice Non-GME FHI2) TELE CONSULT [id number] CYRUS ORO 05/19[facility] [employer] ([facility])(F amily Practic e Non-GME FHI2) [address] [place] [address])([facility] Practice Non-GME FHI1) OUTPATIENT [id number] asthma ABE GUZMAN 07/14 Released w/o Limitations [address] [place] [address])(F amily Practic e Non-GME FHI1) [address] [place] [address])([facility] Practice Non-GME FHI1) OUTPATIENT [id number] pt is having hearing problem s [phone] KEDAR JAMES 08/19 Released w/o Limitations [address] [place] [address])(F amily Practic e Non-GME FHI1) [address] [place] [address])(Sco tt Internal Medicine Tm) OUTPATIENT [id number] KNOT UNDER RT.EAR, PAIN/SW TERENCE, ATC,CB LORETTA LOYOLA CPT 02/09 Released w/o Limitations [address] [place] [address])(S cott Interna l Medicin e Tm) [address] [place] [address])([facility]2) TELE CONSULT [id number] refill med/EDUARDA Hall 02/[address] [place] [address])(F amily Practic e Non-GME FHI2) [address] [place] [address])([facility]1) OUTPATIENT [id number] chest congest DIANE TRISTAN 03/07 Released w/o Limitations [address] [place] [address])(F amily Practic e Non-GME FHI1) [address] [place] [address])([facility] Practice Non-GME FHI2) TELE CONSULT [id number] 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 DARBY Linares 03/[address] [place] [address])(F amily Practic e Non-GME FHI2) [address] [place] [address])([facility] Practice Non-GME FHI1) OUTPATIENT [id number] fol anxiety meds KRIS FLORES 03/18 Released w/o Limitations [address] [place] [address])(F amily Practic e Non-GME FHI1) [facility] ([facility] Practice Non-GME FHI1) TELE CONSULT [id number] Book well Woman's exam KRIS FLORES 04/19 [facility] ([facility])(F amily Practic e Non-GME FHI1) [facility] ([facility] Practice Non-GME FHI1) OUTPATIENT [id number] well exam KRIS FLORES 05/03 Released w/o Limitations [facility] ([facility])(F amily Practic e Non-GME FHI1) [facility] ([facility] Practice Non-GME FHI1) TELE CONSULT [id number] pap result KRIS FLORES 05/16 [facility] ([facility])(F amily Practic e Non-GME FHI1) [facility] ([facility])([facility] Practice Non-GME FHI1) OUTPATIENT [id number] f/u bp KRIS FLORES 05/19 Released w/o Limitations [facility] ([facility])(F amily Practic e Non-GME FHI1) [facility]Cao tt [facility] Team 3) TELE CONSULT [id number] Referra DARBY Encarnacion NP 09/27 [facility] [employer] [facility] ([facility])([facility] Team 3) [facility] [employer] ([facility])([facility]) OUTPATIENT [id number] new pt needs chart DARIUSZ JAUREGUI Liliana 10/27 Released w/o Limitations [facility] [employer] ([facility])([facility]) [facility] ([facility])([facility] tt [facility] Team 3) OUTPATIENT [id number] 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 RAY [phone] KRIS FLORES 11/22 Released w/o Limitations [facility] [employer] ([facility]S cott [facility] Team 3[facility] [employer] [facility]Cao [facility] Team 3) TELE CONSULT [id number] call back lab results DARBY STEWARD 12/27 [facility] [employer] ([facility] Team 3) [employer] ([facility])([facility] Team 3) OUTPATIENT [id number] allergi sai FONSECADANIEL CHAUDHARY Sally 02/07 Released w/o Limitations [employer] ([facility])([facility] Team 3) [facility] [employer] ([facility])([facility] Team 3) OUTPATIENT [id number] taryn issue - [phone] KRIS FLORES 03/22 Released w/o Limitations [employer] ([facility])([facility] Team 3) [facility] [employer] ([facility])([facility] Team 3) TELE CONSULT [id number] after hours call KRIS FLORES 03/30 [employer] ([facility])([facility] Team 3) [facility] [employer] ([facility])([facility] Team 3) TELE CONSULT [id number] ER Visit. ALEK RODRIGUEZ 03/30 [employer] ([facility])([facility] Team 3) [facility] [employer] ([facility])([facility] Team 3[facility] OUTPATIENT [id number] F/U HYPERTE NSION PER KRIS TIMMONS 04/05 Released w/o Limitations [employer] ([facility])([facility] Team 3) [facility] [employer] ([facility])(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) OUTPATIENT [id number] regular cycle interva ls less than 21 days LACIE MARINO 04/14 Released w/o Limitations [employer] ([facility])(G joseph gy) [facility] [employer] ([facility])([facility] Team 3) TELE CONSULT [id number] lab results ALEK RODRIGUEZ 04/18 [employer] ([facility])([facility] Team 3) [facility] [employer] ([facility])([facility] Team 3) TELE CONSULT [id number] audiono ellie KRIS FLORES 04/[address] [place] [address] [facility]LES [facility]S [facility] Team 3) [address] [place] [address] Christopher Anand [facility])(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) OUTPATIENT [id number] annual wwe per LACIE Hernandez 05/02 Released w/o Limitations [address] [place] [address] [facility] [employer] ([facility])(G ynecolo gy) [address] [place] [address] Christopher [facility])(Opt ometry) OUTPATIENT [id number] routine eye exam NATALIE GOMEZ Alberto Montez 06/02 Released w/o Limitations [address] [place] [address] [facility])(O ptometr y) [address] [place] [address] [facility]LES [facility])([facility] Team 3) OUTPATIENT [id number] cyst on right wrist [phone] KRIS FLORES 10/13 Released w/o Limitations [address] [place] [address] [facility] Team 3) [address] [place] [address] [facility])([facility] Team 3) TELE CONSULT [id number] med refill- Joseer ALEK RODRIGUEZ 12/[address] [place] [address] [facility] Team 3) [address] [place] [address] [facility])([facility] Team 3) OUTPATIENT [id number] f/u HTN, Hyperli pidemia , med refill KRIS FLORES 12/28 Released w/o Limitations [address] [place] [address] [facility] Team 3) [address] [place] [address] [facility])([facility] Team 3) OUTPATIENT [id number] smoking issues/ prescri ptions [phone] KRIS FLORES 02/23 Released w/o Limitations [address] [place] [address] [facility]LES [facility] Team 3) [address] [place] [address] Christopher CARUSOB [facility])([facility] Team 3) TELE CONSULT [id number] Stella - Pt request a new referra l for ENT to see another provide r. [phone] ALEK RODRIGUEZ 05/16 [facility] [employer] ([facility] [facility] [place] [facility]) [address] [place] [address] [employer] [facility] Team 3) OUTPATIENT [id number] pain right knee [phone] KRIS FLORES 08/31 Released w/o Limitations [address] [place] [address] [employer] ([facility] 3) [address] [place] [address] [employer] [facility] [place] Team 3) TELE CONSULT [id number] rad results KRIS FLORES 09/[address] [place] [address] [employer] ([facility] 3) [address] [place] [address] [employer] [facility] Team 3) TELE CONSULT [id number] Discuss Mayank Flores cad MARIZOL Robles 11/[address] [place] [address] [employer] ([facility] 3) [address] [place] [address] [employer] [facility] [place] Team 3) OUTPATIENT [id number] pap [phone] KRIS FLORES 01/28 Released w/o Limitations [address] [place] [address] [employer] ([facility] 3) [address] [place] [address] [employer] [facility] Team 3) TELE CONSULT [id number] rx refill on lisinop ril 10 mg Stella CAD [facility] ROSANNE SOARES 03/[address] [place] [address] [employer] [facility] [place] 3) [address] [place] [address] [employer] [facility] Team 3) TELE CONSULT [id number] Notes Entered by: ABDIRAHMAN CROSS 19 Aug 2011 0716 ------- ------- ------- ------- -- Needs f/u with breast surgeon ROSANNE SOARES 08/[address] [place] [address] [employer] ([facility] 3) [address] [place] [address] [employer] [facility] Team 3) TELE CONSULT [id number] Notes Entered by: NATI JIMENEZ 09 Oct 2011 1023 ------- ------- ------- ------- -- Toe pain and constantine Cross cad tlt ROSANNE SOARES 10/[address] [place] [address])([facility] 3) [address] [place] [address])([facility] Team 3) OUTPATIENT [id number] Pain to base of left first toe for 1-2 months ABDIRAHMAN CROSS 10/15 Released w/o Limitations [address] [place] [address])([facility] 3) [address] [place] [address])(War rior Op Med Cln Tm A Ad) TELE CONSULT [id number] Notes Entered by: DEVYN GASPAR 22 Oct 2011 1527 ------- ------- ------- ------- -- Need clinica l notes faxed for ROSANNE Maria 10/[address] [place] [address])(W arrior Op Med Cln Tm A Ad) [address] [place] [address])([facility] Team 3) TELE CONSULT [id number] Notes Entered by: AMARILYS PERKINS 12 Nov 2011 1309 ------- ------- ------- ------- -- Referra l for Dr Harris@ [facility] attn alessio pt seen already [phone] ROSANNE SOARES 11/[address] [place] [address])([facility] 3) [address] [place] [address])([facility] Team 3) TELE CONSULT [id number] Notes Entered by: SAVANNAH WELLS 12 Nov 2011 1337 ------- ------- ------- ------- -- Tcon for emergen cy referra l Dr Cross ph [phone] cad dmj ROSANNE SOARES 11/[address] [place] [address])([facility] 3) [address] [place] [address])([facility] Team 3) TELE CONSULT [id number] Notes Entered by: ROSANNE SOARES 30 Dec 2011 0858 ------- ------- ------- ------- -- ROASNNE Feliz 12/[address] [place] [address])([facility] 3) [address] [place] [address])(War rior Op Med Cln Tm A Ad) TELE CONSULT [id number] Notes Entered by: NATI JIMENEZ 30 Dec 2011 1434 ------- ------- ------- ------- -- ROSANNE Hernandez 12/[address] [place] [address])(W arrior Op Med Cln Tm A Ad) [address] [place] [address])([facility] Team 3) TELE CONSULT [id number] Notes Entered by: KANA GARCIA 20 Mar 2012 0941 ------- ------- ------- ------- -- Network Results - SURGERY 10/25/11 ABDIRAHMAN CROSS 03/[address] [place] [address])([facility] 3) [address] [place] [address])(Opt ometry) OUTPATIENT [id number] routine eye exam TRISTIAN GIRALDO 04/27 Released w/o Limitations [address] [place] [address])(O ptometr y) [address] [place] [address])([facility] Team 3) TELE CONSULT [id number] Notes Entered by: SONYA CACERES 24 Jul 2012 1400 ------- ------- ------- ------- -- Network Results -OTORHI NOLARY 2 ABDIRAHMAN CROSS 07/[address] [place] [address])([facility] 3) [address] [place] [address])([facility] Team 3) OUTPATIENT [id number] cist on wrist growing - [id number] KRIS FLORES 08/03 Released w/o Limitations [address] [place] [address] Group [facility]) [address] [place] [address] Christopher [facility])(Fam bhaskar Med Tm B Non-AD BCC) TELE CONSULT [id number] Notes Entered by: Sally FORRESTER 10 Aug 2012 0825 ------- ------- ------- ------- -- Urgent care KRIS FORRESTER 08/[address] [place] [address] Group Christopher [facility])(F amily Med Tm B Non-AD BCC) [address] [place] [address] Christopher [facility])(Ruperto rior Op Med Cln Tm A Ad) TELE CONSULT [id number] Notes Entered by: STEPHANIE WATKINS 13 Aug 2012 1200 ------- ------- ------- ------- -- Network Results -URGENT CARE 3 KRIS FORRESTER 08/[address] [place] [address] Group Christopher [facility])(Gem arrior Op Med Cln Tm A Ad) [address] [place] [address] Christopher [facility])([facility] Team 3) TELE CONSULT [id number] Notes Entered by: KRIS FLORES 24 Aug 2012 1600 ------- ------- ------- ------- -- Lab results ABIEL MACKEY 08/24 Referred for Appointment [facility] Medical Group [facility]Trinidad bermudez [facility] Team [facility]) [address] [place] [address] Christopher [facility])([facility] Team 3) TELE CONSULT [id number] Notes Entered by: Liliana QUIÑONES 07 Oct 2012 1245 ------- ------- ------- ------- -- Patient wants to go back on celexa [id number] [phone] RM Herring 10/[address] [place] [address] Group Christopher [employer] ([facility] Team 3) [address] [place] [address] Group [employer] [facility] Team 3) OUTPATIENT [id number] pt wants to go back on celexa after 4 years. KRIS FLORES 10/13 Released w/o Limitations [address] [place] [address] [employer] ([facility] Team 3) [address] [place] [address] [employer] [facility]Fam bhaskar Med Tm B Non-AD BCC) TELE CONSULT [id number] Notes Entered by: JOLYNN HSU 21 Oct 2012 1400 ------- ------- ------- ------- -- Network Results -ORTHOP EDICS 3 KRIS FLORES 10/[address] [place] [address] Group Christopher [employer] ([facility]F amily Med Tm B Non-AD BCC) [address] [place] [address] Christopher [employer] [facility] Team 3) TELE CONSULT [id number] Notes Entered by: Amanda QUIÑONES 16 Nov 2012 1031 ------- ------- ------- ------- -- Med refill/ Stella /[phone] only 1 pill left GOLDY SHERWOOD 11/[address] [place] [address] Group [employer] ([facility] Team 3) [address] [place] [address] [employer] [facility] Team 3) OUTPATIENT [id number] Medicat ion refill KRIS FLORES 11/26 Released w/o Limitations [address] [place] [address] Group Christopher [employer] ([facility] 3) [facility] Medical Group [employer] ([facility] Team 3) OUTPATIENT [id number] skin check (sun spot) [phone] .[phone] MAU SAMUEL 02/05 Released w/o Limitations [address] [place] [address] [employer] ([facility] 3) [address] [place] [address] [employer] [facility] Team 3) OUTPATIENT [id number] upper resp infecti on 057.[address] [place] KRIS M 03/08 Released w/o Limitations [address] [place] [address] Group Christopher B [facility] 3) [address] [place] [address])([facility] Team 3) TELE CONSULT [id number] Notes Entered by: Sally FORRESTER 10 Mar 2013 0633 ------- ------- ------- ------- -- x-ray [facility] [place] KRIS M 03/[address] [place] [address] [employer] B [facility] 3) [address] [place], [place] [address]B [facility] Team 3) TELE CONSULT [id number] Notes Entered by: ROSANNE SOARES 10 Mar 2013 0712 ------- ------- ------- ------- -- Med refills MICARE message ROSANNE SOARES 03/[address] [place] [address])([facility] 3) [address] [place] [address] [employer] [facility] Team 3) OUTPATIENT [id number] pt refused ER, inhaler taken and no breathi ng issue now/878 .2654 MAU SAMUEL 03/24 Released w/o Limitations [address] [place], [place] [address]B ([facility] [address]) [address] [place], [place] [address]B [facility]All ergy Resource Sharing) OUTPATIENT [id number] BRONCHI TIS ABIEL ELLINGTON 04/06 Released w/o Limitations [address] [place], [place] [address]B [facility]A llergy [facility] e Sharing ) [address] [place], [place] [address]B [facility] Team 3) TELE CONSULT [id number] Notes Entered by: RASHEED FLOWER 06 May 2013 0930 ------- ------- ------- ------- -- ER F/U Torito Flores - SHERICE HELMS 05/[address] [place] [address] [employer] ([facility] 3) [facility] Medical [facility] Christopher [employer] Team 3) OUTPATIENT [id number] asthma flare up, cough, wheezin g YESICA SHIELDS S 05/21 Released w/o Limitations [address] [place] [address] [employer] ([facility] 3) [address] [place] [address] Christopher [facility]War rior Op Med Cln Tm A Ad) TELE CONSULT [id number] Notes Entered by: ASHLEIGH ECHEVERRIA 18 Jun 2013 1017 ------- ------- ------- ------- -- New rx for Citalop tanya/sto hler/61 8.558.7 [facility] ISAK MCKEON 06/[address] [place] [address] [employer] [facility]W arrior Op Med Cln Tm A Ad) [address] [place] [address] [employer] [facility]War rior Op Med Cln Tm A Ad) OUTPATIENT [id number] f/u meds LENNY SWENSON 06/22 Released w/o Limitations [address] [place] [address] [employer] [facility]W arrior Op Med Cln Tm A Ad) [address] [place] [address] Christopher [employer] [facility] Team 3) OUTPATIENT [id number] f/u for asthma appt x 2weeks ago with [employer] Álvaro ld/618. [phone] 7 YESICA SHIELDS 07/02 Released w/o Limitations [address] [place] [address] [employer] [facility] 3) [address] [place] [address] [employer] [facility]Fam bhaskar Med Tm B Non-AD BCC) OUTPATIENT [id number] double vision since 0830 this morning [id number] ABDIRAHMAN CROSS 12/21 Immediate Referral [address] [place] [address] Christopher SH[employer]YB [facility]F amily Med Tm B Non-AD BCC) [address] [place] [address] [employer] [facility]War rior Op Med Cln Tm A Ad) TELE CONSULT [id number] Notes Entered by: NATI JIMENEZ 29 Dec 2013 1523 ------- ------- ------- ------- -- ER follow up for possibl e MITCHELL Swenson KRIS MAGDALENO 12/[address] [place] [address])(W arrior Op Med Cln Tm A Ad) [address] [place] [address])(War rior Op Med Cln Tm A Ad) OUTPATIENT [id number] ER follow up for MITCHELL LENNY SWENSON 01/10 Released w/o Limitations [address] [place] [address])(W arrior Op Med Cln Tm A Ad) [address] [place] [address])(War rior Op Med Cln Tm A Ad) TELE CONSULT [id number] Notes Entered by: ARETHA SWENSON 15 Feb 2014 1459 ------- ------- ------- ------- -- Hyperli pidemia LENNY SWENSON 02/[address] [place] [address])(W arrior Op Med Cln Tm A Ad) [address] [place] [address])(War rior Op Med Cln Tm A Ad) OUTPATIENT [id number] F/u Cholest bogdan LENNY SWENSON 02/23 Released w/o Limitations [address] [place] [address])(W arrior Op Med Cln Tm A Ad) [address] [place] [address])(Med ication Refill Clinic) TELE CONSULT [id number] Notes Entered by: JACQUELINE CAMEJO 26 Jul 2014 0915 ------- ------- ------- ------- -- Med refill/ felice/ HUMBERTO HAGAN 07/[address] [place] [address])([facility] loyd [facility] Ref[facility]) [address] [place] [address])(War rior Op Med Cln Tm A Ad) TELE CONSULT [id number] Notes Entered by: JACQUELINE CAMEJO 31 Aug 2014 1215 ------- ------- ------- ------- -- ER visit/N ew referra rg livermo n/ KRIS MAGDALENO 08/[address] [place] [address])(W arrior Op Med Cln Tm A Ad) [address] [place] [address])(War rior Op Med Cln Tm A Ad) TELE CONSULT [id number] Notes Entered by: DARRIUS FAUST 19 Sep 2014 1239 ------- ------- ------- ------- -- New Refer arcenio - Livermo n - [phone] SHERICE HELMS 09/[address] [place] [address])(W arrior Op Med Cln Tm A Ad) [address] [place] [address])(War rior Op Med Cln Tm A Ad) TELE CONSULT [id number] Notes Entered by: SONYA CACERES 20 Sep 2014 0914 ------- ------- ------- ------- -- Network Results -OTANTHONY ELLIOTT 09/19/14 HUMBERTO HAGAN 09/[address] [place] [address])(W arrior Op Med Cln Tm A Ad) [address] [place] [address])(War rior Op Med Cln Tm A Ad) TELE CONSULT [id number] Notes Entered by: KANA GARCIA 20 Dec 2014 0742 ------- ------- ------- ------- -- Network Results -OTOLAR YNGOLOG Y 12/19/14 HUMBERTO HAGAN 12/[address] [place] [address])(W arrior Op Med Cln Tm A Ad) [address] [place] [address])(War rior Op Med Cln Tm A Ad) TELE CONSULT [id number] Notes Entered by: Amanda QUIÑONES 24 Jan 2015 0752 ------- ------- ------- ------- -- UC FU symptom persist s/Liver mon/[phone] DONYA WALL 01/24 Referred for Appointment [address] [place] [address])(W arrior Op Med Cln Tm A Ad) [address] [place] [address])(War rior Op Med Cln Tm A Ad) OUTPATIENT [id number] [facility] asthma follow up. HUMBERTO HAGAN 01/24 Released w/o Limitations [address] [place] [address])(W arrior Op Med Cln Tm A Ad) [address] [place] [address])(Med ication Refill Clinic) TELE CONSULT [id number] Notes Entered by: RASHEED FLOWER 31 Mar 2015 0901 ------- ------- ------- ------- -- Rx Renewal - Livermo n - SABA NAVARRO 03/[address] [place] [address])(Tc loyd on Refill Clinic) [address] [place] [address])(War rior Op Med Cln Tm A Ad) TELE CONSULT [id number] Notes Entered by: ISH CALVIN 04 Apr 2015 1702 ------- ------- ------- ------- -- Network Results - Radiolo gy 5 HUMBERTO HAGAN 04/[address] [place] [address])(W arrior Op Med Cln Tm A Ad) [address] [place] [address])(War rior Op Med Cln Tm A Ad) TELE CONSULT [id number] Notes Entered by: KAIT SOLIMAN ELS 17 Apr 2015 1347 ------- ------- ------- ------- -- Lab Request //Liver mon//[phone] DONYA WALL 04/17 Referred for Appointment [address] [place] [address])(W arrior Op Med Cln Tm A Ad) [employer] [facility])(War rior Op Med Cln Tm A Ad) OUTPATIENT [id number] general physica l//558. [phone] DEBBIEHUMBERTO RUIZ Mary Anne 05/03 Released w/o Limitations [facility])(W arrior Op Med Cln Tm A Ad) [address] [place] [address] Group [facility])(Fam bahskar Med Tm B Non-AD BCC) TELE CONSULT [id number] Notes Entered by: West BREEN 16 Jun 2015 1606 ------- ------- ------- ------- -- Network Results OTOLARY NGOLOGY 015 DB NILO GUAJARDO 06/[address] [place] [address] Group [facility])(F amily Med Tm B Non-AD BCC) [address] [place] [address])(War rior Op Med Cln Tm A Ad) OUTPATIENT [id number] chest congest ion x 3 days [id number] GOLDY BUCHANAN 08/02 Released w/o Limitations [address] [place] [address] Group [facility])(W arrior Op Med Cln Tm A Ad) [address] [place] [address])(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) OUTPATIENT [id number] annual wwe/dis cuss prolaps e - [phone] J LUIS STEELE 08/09 Released w/o Limitations [address] [place] [address])(Omaira ruiz gy) [address] [place] [address])(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) TELE CONSULT [id number] Notes Entered by: JOSE STEELE 09 Aug 2015 1612 ------- ------- ------- ------- -- Test results RICHAR STARK 08/[address] [place] [address] Group [facility])(G joseph gy) [address] [place] [address])(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) TELE CONSULT [id number] Notes Entered by: JOSE STEELE 31 Oct 2015 1417 ------- ------- ------- ------- -- Test results YO EPPS 10/[address] [place] [address])([facility]) [address] [place] [address])(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) OUTPATIENT [id number] [facility] [phone] J LUIS STEELE 10/31 Released w/o Limitations [address] [place] [address])([facility]) [address] [place] [address])([facility] bhaskar Med Tm B Non-AD BCC) TELE CONSULT [id number] Notes Entered by: RASHEED FLOWER 07 Nov 2015 1348 ------- ------- ------- ------- -- Sx: Cough, congest ion, headach [facility] e - * DONYA WALL 11/06 Referred for Appointment [address] [place] [address])( amily Med Tm B Non-AD BCC) [address] [place] [address])(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) TELE CONSULT [id number] Notes Entered by: JOSE STEELE 08 Nov 2015 1258 ------- ------- ------- ------- -- Test results YO EPPS 11/[address] [place] [address])( [facility] gy) [address] [place] [address])([facility] bhaskar Med Tm B Non-AD BCC) OUTPATIENT [id number] asthma concern s CASANDRA NILO S 11/12 Released w/o Limitations [address] [place] [address])(F amily Med Tm B Non-AD BCC) [address] [place] [address])([facility] bhaskar Med Tm B Non-AD BCC) TELE CONSULT [id number] Notes Entered by: KAIT SOLIMAN ELS 18 Dec 2015 0704 ------- ------- ------- ------- -- Sx: Asthma- Related Symptom s//Cola nese//5 58.7097 //dmd DONYA WALL 12/17 Referred for Appointment [address] [place] [address] Christopher [facility])(F amily Med Tm B Non-AD BCC) [address] [place] [address])(Med ication Refill Clinic) TELE CONSULT [id number] Notes Entered by: RASHEED FLOWER 19 Dec 2015 1548 ------- ------- ------- ------- -- Rx renewal - Colanes e - - tsg MILEY BAUTISTA 12/[address] [place] [address])(Tc loyd on Refill Clinic) [address] [place] [address])(Ruperto rior Op Med Cln Tm A Ad) OUTPATIENT [id number] asthma flare GOLDY BUCHANAN 01/07 Released w/o Limitations [address] [place] [address])(W arrior Op Med Cln Tm A Ad) [address] [place] [address])(Fam bhaskar Med Tm B Non-AD BCC) TELE CONSULT [id number] Notes Entered by: RASHEED FLOWER 31 Jan 2016 1233 ------- ------- ------- ------- -- ER refusal - SOB - Asthma - Colanes e - - tsg* DONYA WALL 01/30 Referred for Appointment [address] [place] [address] Christopher [facility])(F amily Med Tm B Non-AD BCC) [address] [place] [address])(Fam bhaskar Med Tm B Non-AD BCC) OUTPATIENT [id number] Unable to take deep breathe s, Cough, Headach e x 2days [id number] NILO GUAJARDO 02/15 Released w/o Limitations [address] [place] [address])(F amily Med Tm B Non-AD BCC) [address] [place] [address])(Fam bhaskar Med Tm B Non-AD BCC) TELE CONSULT [id number] Notes Entered by: MAO BAKER ROWAN West 20 Feb 2016 1334 ------- ------- ------- ------- -- Network Results -RADIOL OGY 11/15/15 SCREEN MAMMO NILO PINA 02/[address] [place] [address])(F amily Med Tm B Non-AD BCC) [address] [place] [address])(Fam bhaskar Med Tm B Non-AD BCC) TELE CONSULT [id number] Notes Entered by: SAVANNAH WELLS 21 Feb 2016 1045 ------- ------- ------- ------- -- Network results Urgent Care 016 NILO SOMMER 02/[address] [place] [address] Christopher [facility])(F amily Med Tm B Non-AD BCC) [address] [place] [address])([facility] bhaskar Med Tm B Non-AD BCC) TELE CONSULT [id number] Notes Entered by: KAIT SOLIMAN ELS 27 Feb 2016 0959 ------- ------- ------- ------- -- Referra l to Sleep Study// Colanes e//618. [phone] 7 DONOVAN JC 02/[address] [place] [address] Christopher [facility])(F amily Med Tm B Non-AD BCC) [address] [place] [address] Christopher [facility])(Fam bhaskar Med Tm B Non-AD BCC) TELE CONSULT [id number] Notes Entered by: SAVANNAH WELLS 13 Mar 2016 1302 ------- ------- ------- ------- -- Network results Pulmona ry/Jean p Medicin e 016 NILO SOMMER 03/[address] [place] [address] Christopher [facility])(F amily Med Tm B Non-AD BCC) [address] [place] [address])(Fam bhaskar Med Tm B Non-AD BCC) TELE CONSULT [id number] Notes Entered by: SAVANNAH WELLS 27 Mar 2016 1035 ------- ------- ------- ------- -- Network results Pulmona ry/Slee p Medicin e 016 NILO SOMMER 03/[address] [place] [address])(F amily Med Tm B Non-AD BCC) [address] [place] [address])(Fam bhaskar Med Tm B Non-AD BCC) OUTPATIENT [id number] ADE AVILA 05/15 Released w/o Limitations [address] [place] [address])(F amily Med Tm B Non-AD BCC) [address] [place] [address])(Med ication Refill Clinic) TELE CONSULT [id number] Notes Entered by: Sally SALINAS 17 May 2016 1149 ------- ------- ------- ------- -- Med Renewal / [place]anes e/ [phone] - MILEY Kenney 05/17 [address] [place] [address])([facility]) [address] [place] [address])(Fam bhaskar Med Tm B Non-AD BCC) OUTPATIENT [id number] Medicat ion renewal DARIUS MERCADO 05/20 Released w/o Limitations [address] [place] [address])(F amily Med Tm B Non-AD BCC) [address] [place] [address])(Fam bhaskar Med Tm B Non-AD BCC) TELE CONSULT [id number] Notes Entered by: Sally SALINAS 28 Jun 2016 1120 ------- ------- ------- ------- -- SX - Multipl e SX / Colanes e/ [phone] - DEE Yu 06/28 Referred for Appointment [address] [place] [address])(F amily Med Tm B Non-AD BCC) [address] [place] [address] [employer] [place]Fam bhaskar Med Tm B Non-AD BCC) TELE CONSULT [id number] Notes Entered by: BUSHRA DURON 05 Jul 2016 0846 ------- ------- ------- ------- -- Sx - Sore throat, cough/C olanese / DEE MAN 07/05 Referred for Appointment [address] [place] [address] Group [employer] ([facility]F amily Med Tm B Non-AD BCC) [address] [place] [address] [facility] ([facility]Fam bhaskar Med Tm B Non-AD BCC) OUTPATIENT [id number] L knee pain, [phone] TRE WATKINS 07/10 Released w/o Limitations [address] [place] [address] Group [facility] [employer] ([facility]F amily Med Tm B Non-AD BCC) [address] [place] [address] [facility]Fam bhaskar Med Tm B Non-AD BCC) TELE CONSULT [id number] Notes Entered by: Sally WATKINS 11 Jul 2016 0713 ------- ------- ------- ------- -- Pain in the knee ANITA PAULETTE Anand 07/11 Referred for Appointment [address] [place] [address] Group [facility] ([facility]F amily Med Tm B Non-AD BCC) [address] [place] [address] [employer] ([facility]Fam bhaskar Med Tm B Non-AD BCC) OUTPATIENT [id number] F/U Test results [id number] DARIUS MERCADO 07/26 Released w/o Limitations [address] [place] [address] [employer] ([facility]F amily Med Tm B Non-AD BCC) [address] [place] [address] [employer] [facility] [place]War rioalberto Op Med Cln Tm A Ad) TELE CONSULT [id number] Notes Entered by: KANA GARCIA 08 Aug 2016 1321 ------- ------- ------- ------- -- Network Results PULMONA RY MEDICIN E 07/29/16 DARIUS CALZADA 08/[address] [place] [address])(W arrior Op Med Cln Tm A Ad) [address] [place] [address])(Fam bhaskar Med Tm B Non-AD BCC) TELE CONSULT [id number] Notes Entered by: Amanda BEACH 20 Aug 2016 1541 ------- ------- ------- ------- -- Colonos copy referra ABIEL Ramon 08/20 Referred for Appointment [address] [place] [address])(F amily Med Tm B Non-AD BCC) [address] [place] [address])(Med ication Refill Clinic) TELE CONSULT [id number] Notes Entered by: DESHAWN LUIS 19 Mar 2017 0846 ------- ------- ------- ------- -- Med Renewal / Colanes e / - sgMILEY Soto 03/[address] [place] [address])([facility]) [address] [place] [address])(Fam bhaskar Med Tm B Non-AD BCC) OUTPATIENT [id number] med. f/u NILO GUAJARDO 04/08 Released w/o Limitations [address] [place] [address])(F amily Med Tm B Non-AD BCC) [address] [place] [address])(Med ication Refill Clinic) TELE CONSULT [id number] Notes Entered by: DESHAWN LUIS 27 May 2017 1434 ------- ------- ------- ------- -- Med Renewal / Colanes e / [phone] - sgj SABA NAVARRO 05/[address] [place] [address])([facility]) [address] [place] [address])(Fam bhaskar Med Tm B Non-AD BCC) TELE CONSULT [id number] Notes Entered by: Sally SALINAS 21 Aug 2017 0947 ------- ------- ------- ------- -- F/U Appt - ER-Hosp italiza tion F/U/ Colanes e/ [phone] - ROGELIO Bustamante 08/[address] [place] [address] [facility])(F amily Med Tm B Non-AD BCC) [address] [place] [address] [facility])(Fam bhaskar Med Tm B Non-AD BCC) OUTPATIENT [id number] [facility] NILO GUAJARDO 08/26 Released w/o Limitations [address] [place] [address] [facility])(F amily Med Tm B Non-AD BCC) [address] [place] [address] [facility])(Med ication Refill Clinic) TELE CONSULT [id number] Notes Entered by: RASHEED FLOWER 24 Sep 2017 1046 ------- ------- ------- ------- -- Rx renewal - Colanes e - - ROGELIO Cedeño 09/[address] [place] [address] [facility])([facility]) [address] [place] [address] [facility])(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) TELE CONSULT [id number] Notes Entered by: BRET ORTEGA 21 Oct 2017 0936 ------- ------- ------- ------- -- 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 Appt Request - Menopau ana luisa Issues and concern s / Cp# [phone] - YO Chau 10/[address] [place] [address] [facility]Omaira ruiz gy) [address] [place] [address] Christopher [facility])(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) OUTPATIENT [id number] WWE and discuss menopau ana luisa issues [phone] JUAN FLORES 10/23 Released w/o Limitations [facility] Medical Group [employer] ([facility]G ynecolo gy) [address] [place] [address] [employer] ([facility]Fam bhaskar Med Tm B Non-AD BCC) OUTPATIENT [id number] Notes Entered by: NIA NOVA 24 Oct 2017 1135 ------- ------- ------- ------- -- refil NILO Waddell 10/24 Released w/o Limitations [address] [place] [address] [employer] ([facility]F amily Med Tm B Non-AD BCC) [address] [place] [address] [employer] ([facility])(Sco tt [facility]) OUTPATIENT [id number] 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/ MARGAUX ESPINOSA 10/24 Released w/o Limitations [address] [place] [address] [employer] ([facility]S [facility]) [address] [place] [address] [employer] ([facility]Fam bhaskar Med Tm B Non-AD BCC) OUTPATIENT [id number] CHest Congest ion, [phone] NILO GUAJARDO 12/15 Released w/o Limitations [address] [place] [address] [employer] ([facility]F amily Med Tm B Non-AD BCC) [address] [place] [address] [employer] ([facility])(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) TELE CONSULT [id number] Notes Entered by: Tc FLORES S 19 Dec 2017 1535 ------- ------- ------- ------- -- YO Gabriel 12/[address] [place] [address] Group [employer] ([facility]G ynecolo gy) [facility] Medical Group [employer] ([facility]Fam bhaskar Med Tm B Non-AD BCC) OUTPATIENT [id number] cough x1 month / NILO GUAJARDO 03/05 Released w/o Limitations [address] [place] [address] [employer] ([facility]F amily Med Tm B Non-AD BCC) [address] [place] [address] [employer] ([facility])(Cao tt Internal Medicine Tm) OUTPATIENT [id number] Cough/s neezing /nasal/ chest congest ion/fac ial pain [id number] SUSSY MARRERO Sally 05/25 Released w/o Limitations [address] [place] [address])(S cott Interna l Medicin e Tm) [address] [place] [address])([facility] ) TELE CONSULT [id number] Notes Entered by: BRET ORTEGA 28 May 2018 0713 ------- ------- ------- ------- -- Medicat ion Inquiry -SX- Headach e/ Phill/ - aj SCOT DE LEON 05/28 Other Not Elsewhere Classified [address] [place] [address])(S cott Interna l Medicin e Tm) [address] [place] [address])([facility] ) OUTPATIENT [id number] congest ion and has copd NITESH HACKETT 06/05 Released w/o Limitations [address] [place] [address])(S cott Interna l Medicin e Tm) [address] [place] [address])([facility] ) TELE CONSULT [id number] 5 Notes Entered by: RASHEED FLOWER 17 Jul 2018 1322 ------- ------- ------- ------- -- STAT referra l - Jun appt - Phill - - tsg HANSA CAMEJO 07/17 Immediate Referral [address] [place] [address])(S cott Interna l Medicin e Tm) [address] [place] [address])([facility] ) OUTPATIENT [id number] Cough/c hest congest ion/hea dache [id number] ANNABELLE MONZON V 09/22 Released w/o Limitations [address] [place] [address])(S cott Interna l Medicin e Tm) [address] [place] [address])([facility] ) OUTPATIENT [id number] COPD exacerb ation / NITESH HACKETT 10/29 Released w/o Limitations [address] [place] [address])(S cott Interna l Medicin e Tm) [address] [place] [address])([facility] ) TELE CONSULT [id number] Notes Entered by: RASHEED FLOWER 10 Nov 2018 0808 ------- ------- ------- ------- -- F/U Spec - Referra l req - [facility] - - tsg NITESH HACKETT 11/[address] [place] [address])(S cott Interna l Medicin e Tm) [address] [place] [address])([facility] ) TELE CONSULT [id number] Notes Entered by: CARMEN DIETRICH 22 Dec 2018 1211 ------- ------- ------- ------- -- Med Renewal /[facility] // clm SCOT DE LEON 12/22 Medication Refill Forwarded [address] [place] [address])(S cott Interna l Medicin e Tm) [address] [place] [address])([facility] ) OUTPATIENT [id number] 2 annual checkup / DAYAN OLIVARES NMI 02/10 Released w/o Limitations [address] [place] [address])(S cott Interna l Medicin e Tm) [address] [place] [address])([facility] ) TELE CONSULT [id number] Notes Entered by: Rachael OLIVARES NMI 12 Feb 2019 1150 ------- ------- ------- ------- -- RIGHT LUNG NODULE- F/U CT In 6 months SCOT DE LEON 02/12 Other Not Elsewhere Classified [address] [place] [address])(S cott Interna l Medicin e Tm) [address] [place] [address])([facility] ) TELE CONSULT [id number] Notes Entered by: Sally URENA 16 Feb 2019 1244 ------- ------- ------- ------- -- Network results Otolary ngology [ENT] 019 DAYAN MAHARAJ NMI 02/[address] [place] [address])(S cott Interna l Medicin e Tm) [address] [place] [address])([facility] ) TELE CONSULT [id number] 0 Notes Entered by: Omaira MARTINEZ 31 Mar 2019 1209 ------- ------- ------- ------- -- Express scripts : med refill / arelisp CLINT TRUJILLO 03/31 Medication Refill Forwarded [address] [place] [address])(S cott Interna l Medicin e Tm) [address] [place] [address])([facility] ) TELE CONSULT [id number] 5 Notes Entered by: CARMEN DIETRICH 15 Apr 2019 1034 ------- ------- ------- ------- -- Med Renewal --OUT X2 DAYS--Amanda bocanegra --618.5 [phone] --CLINT Aguero 04/15 Medication Refill Forwarded [address] [place] [address])(S cott Interna l Medicin e Tm) [address] [place] [address])([facility] ) OUTPATIENT [id number] Cough and Congest ion, ADAM WEST 07/07 Released w/o Limitations [address] [place] [address])(S cott Interna l Medicin e Tm) [address] [place] [address])([facility] ) TELE CONSULT [id number] 6 Notes Entered by: TIANA SHAH 24 Aug 2019 1101 ------- ------- ------- ------- -- Network Results Allergy 020 KSP ADAM WEST 08/[address] [place] [address])(S cott Interna l Medicin e Tm) [address] [place] [address])([facility] ) OUTPATIENT [id number] knee pain,61 8.558.7 097 ADAM WEST 08/25 Released w/o Limitations [address] [place] [address])(S cott Interna l Medicin e Tm) [address] [place] [address])([facility] ) TELE CONSULT [id number] Notes Entered by: CARMEN DIETRICH 03 Sep 2019 1128 ------- ------- ------- ------- -- Lamar Gilbert /Chandra eisenberg/[phone] Marcia/SCOT Singletary 09/02 Other Not Elsewhere Classified [address] [place] [address])(S cott Interna l Medicin e Tm) [address] [place] [address])([facility] ) TELE CONSULT [id number] Notes Entered by: ESTUARDO RUIZ RET 11 Oct 2019 1210 ------- ------- ------- ------- -- SX: Left knee pain/Ch ambertrinidad/ *p SUSSY Franklin 10/[address] [place] [address])(S cott Interna l Medicin e Tm) [address] [place] [address])([facility] ) TELE CONSULT [id number] Notes Entered by: ROSANNE SOARES 15 Oct 2019 0758 ------- ------- ------- ------- -- ED F/SCOT HA 10/14 Other Not Elsewhere Classified [address] [place] [address])(S cott Interna l Medicin e Tm) [address] [place] [address] Group [facility])([facility] ) TELE CONSULT [id number] Notes Entered by: BRET ORTEGA 18 Oct 2019 1019 ------- ------- ------- ------- -- Quarant ine Work Note Request / [employer] abdi/ - SCOT Amezquita 10/17 Other Not Elsewhere Classified [facility] Medical Group [facility])(S cott Interna l Medicin e Tm) [address] [place] [address])([facility] ) OUTPATIENT [id number] Virtual - Upper L Back pain x 3 - 4 weeks ADAM WEST 02/20 Released w/o Limitations [facility] Medical Group [facility])(S cott Interna l Medicin e Tm) [address] [place] [address])([facility] ) TELE CONSULT [id number] Notes Entered by: ESTUARDO RUIZ RET 28 Aug 2020 1250 ------- ------- ------- ------- -- STAT Pulmona ry Lamar rg daljit /* [facility] LUIS CAICEDO 08/28 Other Not Elsewhere Classified [facility] Medical Group [facility])(S cott Interna l Medicin e Tm) [address] [place] [address])([facility] ) TELE CONSULT [id number] Notes Entered by: YOHAN JEAN 24 Oct 2020 1321 ------- ------- ------- ------- -- lamar gilbert /chandra eisenberg/[phone] ERLIN Boateng 10/24 Other Not Elsewhere Classified [facility] Medical Group [facility])(S cott Interna l Medicin e Tm) [address] [place] [address])([facility] ) TELE CONSULT [id number] Notes Entered by: PRASANTH ClaytonEMANUEL Arcenio 05 Dec 2020 1129 ------- ------- ------- ------- -- Network results Allergy 021 SLC ADAM WEST 12/[address] [place] [address])(S cott Interna l Medicin e Tm) [address] [place] [address])([facility] ) OUTPATIENT [id number] Annual appoint ment (labs ordered ) ADAM WEST 01/23 Released w/o Limitations [address] [place] [address])(S cott Interna l Medicin e Tm) [address] [place] [address])([facility] ) OUTPATIENT [id number] Virtual -sore throat and congest ion x 5 days-61 8.558.7 097 BRANDAN LINDA 04/11 Released w/o Limitations [address] [place] [address])(S cott Interna l Medicin e Tm) [address] [place] [address])([facility] ) TELE CONSULT [id number] Notes Entered by: RASHEED FLOWER 12 Apr 2021 0955 ------- ------- ------- ------- -- COVID test done - [facility] s - - tsg SCOT DE LEON 04/12 Other Not Elsewhere Classified [address] [place] [address])(S cott Interna l Medicin e Tm) [address] [place] [address])([facility] Virus) OUTPATIENT [id number] 2 symptom atic covid and strep LONG SHELTON 04/12 Released w/o Limitations [address] [place] [address])(P andemic Virus) [address] [place] [address])([facility] ) OUTPATIENT [id number] Virtual review labs for allergi st pt will email SLT ADAM WEST 07/06 Released w/o Limitations [address] [place] [address] [facility])(S cott Interna l Medicin e Tm) [address] [place] [address] Christopher [facility])(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) OUTPATIENT [id number] [phone] LACIE MARINO 07/09 Released w/o Limitations [address] [place] [address] [facility]G ynecolo gy) [address] [place] [address] Christopher [facility])(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) TELE CONSULT [id number] Notes Entered by: JEREMY ROBLES 10 Jul 2021 1510 ------- ------- ------- ------- -- Uploade d into [facility] LACIE MARINO 07/[address] [place] [address] [facility])(G ynecolo gy) [address] [place] [address] [facility])(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) TELE CONSULT [id number] Notes Entered by: GIANLUCA MARINO 17 Jul 2021 1006 ------- ------- ------- ------- -- results RICHAR STARK 07/17 Referred for Appointment [address] [place] [address] Christopher [facility])(G ynecolo gy) [address] [place] [address] [facility])(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) TELE CONSULT [id number] Notes Entered by: RICHAR STARK 24 Jul 2021 0921 ------- ------- ------- ------- -- Test results RICHAR STARK 07/24 Released to Self Care [address] [place] [address] Christopher [facility])(G ynecolo gy) [address] [place] [address] [facility])([facility] Internal Medicine ) OUTPATIENT [id number] go over results of CT SCAN ADAM WEST 08/21 Released w/o Limitations [address] [place] [address] Christopher [facility]S cott Interna l Medicin e Tm) [address] [place] [address] [facility])([facility] Internal Medicine Tm) TELE CONSULT [id number] Notes Entered by: YOHAN JEAN 21 Nov 2021 1342 ------- ------- ------- ------- -- lamar gilbert /chadnra /[phone] sam MACKEYABIEL Trinidad 11/21 Other Not Elsewhere Classified [address] [place] [address])(S cott Interna l Medicin e Tm) [address] [place] [address])([facility] ) TELE CONSULT [id number] Notes Entered by: KEANU DIAMOND 30 Nov 2021 0848 ------- ------- ------- ------- -- Network results Cardiol ogy BRANDAN RUEDA 11/[address] [place] [address])(S cott Interna l Medicin e Tm) [address] [place] [address])([facility] ) TELE CONSULT [id number] Notes Entered by: Natividad POND 04 Feb 2022 1057 ------- ------- ------- ------- -- Network results ALLERGY 022 BRANDAN MEDRANO 02/[address] [place] [address])(S cott Interna l Medicin e Tm) [address] [place] [address])([facility] ) TELE CONSULT [id number] Notes Entered by: YESICA BOWLING 14 Feb 2022 1119 ------- ------- ------- ------- -- Network results Allergy 022 BRANDAN THOMPSON 02/[address] [place] [address])(S cott Interna l Medicin e Tm) [address] [place] [address])([facility] Internal Medicine ) TELE CONSULT [id number] Notes Entered by: BUSHRA DURON 19 Mar 2022 0810 ------- ------- ------- ------- -- F/u after special ist - Referra l Req/Kru se/618. [phone] 7 LUCIANO PALACIOS 03/19 Medication Refill Forwarded [address] [place] [address])(S cott Interna l Medicin e Tm) [address] [place] [address])([facility] ) OUTPATIENT [id number] annual lab and exam SWAPNIL RHOADES 04/29 Released w/o Limitations [address] [place] [address])(S cott Interna l Medicin e Tm) [address] [place] [address])([facility] ) TELE CONSULT [id number] Notes Entered by: BUSHRA DURON 13 Jun 2022 1019 ------- ------- ------- ------- -- Sx - L leg pain/Kr use/618 .558.70 97 LUCIANO PALACIOS 06/13 Referred- Emergency Department [address] [place] [address])(S cott Interna l Medicin e Tm) [address] [place] [address])([facility] Medicine ) TELE CONSULT [id number] Notes Entered by: RASHEED FLOWER 12 Jul 2022752 ------- ------- ------- ------- -- Rx renewal - [place] - - tsg LUCIANO PALACIOS 07/12 Medication Refill Forwarded [address] [place] [address])(S cott Interna l Medicin e Tm) [address] [place] [address])(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) TELE CONSULT [id number] Notes Entered by: RASHEED FLOWER 12 Jul 2022758 ------- ------- ------- ------- -- Rx renewal - - tsg RICHAR STARK 07/12 Referred for Appointment [address] [place] [address])(G ynecolo gy) [address] [place] [address])([facility] Medicine ) TELE CONSULT [id number] Notes Entered by: BUSHRA DURON 16 Jul 2022 0732 ------- ------- ------- ------- -- Sx - Cough/K ruse/61 8.558.7 097 LUCIANO PALACIOS 07/16 Referred for Appointment [address] [place] [address])(S cott Interna l Medicin e Tm) [address] [place] [address])([facility] Medicine ) OUTPATIENT [id number] 4 product liseth cough x 2 weeks (green sputum) SWAPNIL RHOADES 07/16 Released w/o Limitations [address] [place] [address])(S cott Interna l Medicin e Tm) [address] [place] [address])(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) OUTPATIENT [id number] WWE. LACIE MARINO 07/18 Released w/o Limitations [address] [place] [address])(G ynecolo gy) [address] [place] [address])(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) TELE CONSULT [id number] Notes Entered by: GIANLUCA MARINO 15 Aug 2022 1745 ------- ------- ------- ------- -- results RICHAR STARK 08/15 Released to Self Care [address] [place] [address])(G ynecolo gy) 5C-[facility] [id number] Pain in unspeci fied knee,[place] in in left knee ROBBIE DILLON 07/29 Discharge Disposition: Home or Self Care [id number] [id number] 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), 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 ROBBIE REAL DBRUBAKER 07/29 Discharge Disposition: Home or Self Care 5A-3 [facility] 5C-375 th [facility] Between Visit [id number] 08/03 Discharge Disposition: Home or Self Care 5C-3 [facility] 5A-375 th [facility] Between Visit [id number] 10/25 Discharge Disposition: Home or Self Care 5A-3 [facility] 5A-375 th [facility] Outpatient [id number] HATIM AMAHMOOD 10/28 Discharge Disposition: Home or Self Care -3 [facility] Procedures Combined list of: 1) Procedures from Department of Veterans Affairs facilities going back up to thelast 18 months, not all VA non-surgical procedures are included; 2) All procedures from the Department of Defense facilities. Procedure Procedure Type Code Date Perfomer Comments Sourc e Nasal 2009 Ambulatory Pharmacy Sinus 2009 Ambulatory Pharmacy Mammaplasty 2007 Ambulatory Pharmacy Mid-urethral sling 2005 Ambulatory Pharmacy Mid-urethral sling 2003 Ambulatory [facility] Tonsillectomy [facility] FNA thyroid B9 - MEDGRP-Scot t Third molar extraction [facility] VACUUM EXTRACTION WITH EPISIOTOMY 1995 [facility] OTHER ARTIFICIAL RUPTURE OF MEMBRANES 1995 [facility] MONITORING, NOT OTHERWISE SPECIFIED 1995 [facility] EKG (SCALP) 1995 [facility] MEDICAL INDUCTION OF LABOR 1995 DoD TELE ASSESS & MGT SRV PROV QUAL NONPHYS HLTH CARE PRO TO EST PAT,PARENT,GUARD NOT ORIG REL ASSESS & MGT SRV PROV W/IN PREV 7 DAYS NOR LEAD ASSESS & MGT SRV/PX W/IN NXT 24H/SOON APT; 11-20 MIN MED DIS 2022 DoD TELE ASSESS & MGT SRV PROV QUAL NONPHYS HLTH CARE PRO TO EST PAT,PARENT,GUARD NOT ORIG REL ASSESS & MGT SRV PROV W/IN PREV 7 DAYS NOR LEAD ASSESS & MGT SRV/PX W/IN NXT 24H/SOON APT; 11-20 MIN MED DIS 2022 DoD TELE ASSESS & MGT SRV PROV QUAL NONPHYS HLTH CARE PRO TO EST PAT,PARENT,GUARD NOT ORIG REL ASSESS & MGT SRV PROV W/IN PREV 7 DAYS NOR LEAD ASSESS & MGT SRV/PX W/IN NXT 24H/SOON APT; 11-20 MIN MED DIS 2021 DoD TELE ASSESS & MGT SRV PROV QUAL NONPHYS HLTH CARE PRO TO EST PAT,PARENT,GUARD NOT ORIG REL ASSESS & MGT SRV PROV W/IN PREV 7 DAYS NOR LEAD ASSESS & MGT SRV/PX W/IN NXT 24H/SOON APT; 11-20 MIN MED DIS 2021 DoD TELE ASSESS & MGT SRV PROV QUAL NONPHYS HLTH CARE PRO TO EST PAT,PARENT,GUARD NOT ORIG REL ASSESS & MGT SRV PROV W/IN PREV 7 DAYS NOR LEAD ASSESS & MGT SRV/PX W/IN NXT 24 HR/SOON APT;5-10 MIN MED DIS 2021 DoD WAIVER SERVICES; NOT OTHERWISE SPECIFIED (NOS) 2021 DoD SCREENING PAPANICOLAOU SMEAR; OBTAINING, PREPARING AND CONVEYANCE OF CERVICAL OR VAGINAL SMEAR TO LABORATORY 2021 DoD WAIVER SERVICES; NOT OTHERWISE SPECIFIED (NOS) 2021 DoD WAIVER SERVICES; NOT OTHERWISE SPECIFIED (NOS) 2020 DoD WAIVER SERVICES; NOT OTHERWISE SPECIFIED (NOS) 2020 DoD TELE ASSESS & MGT SRV PROV QUAL NONPHYS HLTH CARE PRO TO EST PAT,PARENT,GUARD NOT ORIG REL ASSESS & MGT SRV PROV W/IN PREV 7 DAYS NOR LEAD ASSESS & MGT SRV/PX W/IN NXT 24 HR/SOON APT;5-10 MIN MED DIS 2018 DoD HEALTH AND BEHAVIOR INTERVENTION, EACH 15 MINUTES, RIBL-RE-EGES; INDIVIDUAL 2017 DoD ONLINE ASSESS &MANAG SERV PROVIDE,A QUAL NONPHYS HCP TO AN ESTABLISHED PAT/GUARDIAN,NOT ORIGINAT FRM RELAT ASSESS &MANAG SERV PROVIDE W/IN THE PREV 7 DAYS,USE THE INTERNET/SIMILAR [employer]WORK 2017 DoD TELE ASSESS & MGT SRV PROV QUAL NONPHYS HLTH CARE PRO TO EST PAT,PARENT,GUARD NOT ORIG REL ASSESS & MGT SRV PROV W/IN PREV 7 DAYS NOR LEAD ASSESS & MGT SRV/PX W/IN NXT 24 HR/SOON APT;5-10 MIN MED DIS 2017 DoD TELE ASSESS & MGT SRV PROV QUAL NONPHYS HLTH CARE PRO TO EST PAT,PARENT,GUARD NOT ORIG REL ASSESS & MGT SRV PROV W/IN PREV 7 DAYS NOR LEAD ASSESS & MGT SRV/PX W/IN NXT 24 HR/SOON APT;5-10 MIN MED DIS 2017 DoD ONLINE ASSESS &MANAG SERV PROVIDE,A QUAL NONPHYS HCP TO AN ESTABLISHED PAT/GUARDIAN,NOT ORIGINAT FRM RELAT ASSESS &MANAG SERV PROVIDE W/IN THE PREV 7 DAYS,USE THE INTERNET/SIMILAR [employer] 2016 DoD TELE ASSESS & MGT SRV PROV QUAL NONPHYS HLTH CARE PRO TO EST PAT,PARENT,GUARD NOT ORIG REL ASSESS & MGT SRV PROV W/IN PREV 7 DAYS NOR LEAD ASSESS & MGT SRV/PX W/IN NXT 24 HR/SOON APT;5-10 MIN MED DIS 2016 DoD TELE ASSESS & MGT SRV PROV QUAL NONPHYS HLTH CARE PRO TO EST PAT,PARENT,GUARD NOT ORIG REL ASSESS & MGT SRV PROV W/IN PREV 7 DAYS NOR LEAD ASSESS & MGT SRV/PX W/IN NXT 24 HR/SOON APT;5-10 MIN MED DIS 2016 DoD TELE ASSESS & MGT SRV PROV QUAL NONPHYS HLTH CARE PRO TO EST PAT,PARENT,GUARD NOT ORIG REL ASSESS & MGT SRV PROV W/IN PREV 7 DAYS NOR LEAD ASSESS & MGT SRV/PX W/IN NXT 24 HR/SOON APT;5-10 MIN MED DIS 2015 DoD DISEASE MANAGEMENT PROGRAM, FOLLOW-UP/REASSESS MENT 2015 DoD TELE ASSESS & MGT SRV PROV QUAL NONPHYS HLTH CARE PRO TO EST PAT,PARENT,GUARD NOT ORIG REL ASSESS & MGT SRV PROV W/IN PREV 7 DAYS NOR LEAD ASSESS & MGT SRV/PX W/IN NXT 24 HR/SOON APT;5-10 MIN MED DIS 2015 DoD TELE ASSESS & MGT SRV PROV QUAL NONPHYS HLTH CARE PRO TO EST PAT,PARENT,GUARD NOT ORIG REL ASSESS & MGT SRV PROV W/IN PREV 7 DAYS NOR LEAD ASSESS & MGT SRV/PX W/IN NXT 24 HR/SOON APT;5-10 MIN MED DIS 2015 DoD DISEASE MANAGEMENT PROGRAM, FOLLOW-UP/REASSESS MENT 2015 DoD TELE ASSESS & MGT SRV PROV QUAL NONPHYS HLTH CARE PRO TO EST PAT,PARENT,GUARD NOT ORIG REL ASSESS & MGT SRV PROV W/IN PREV 7 DAYS NOR LEAD ASSESS & MGT SRV/PX W/IN NXT 24 HR/SOON APT;5-10 MIN MED DIS 2015 DoD TELE ASSESS & MGT SRV PROV QUAL NONPHYS HLTH CARE PRO TO EST PAT,PARENT,GUARD NOT ORIG REL ASSESS & MGT SRV PROV W/IN PREV 7 DAYS NOR LEAD ASSESS & MGT SRV/PX W/IN NXT 24 HR/SOON APT;5-10 MIN MED DIS 2015 DoD GONADOTROPIN, CHORIONIC (HCG); QUALITATIVE 2015 DoD SCREENING PAPANICOLAOU SMEAR; OBTAINING, PREPARING AND CONVEYANCE OF CERVICAL OR VAGINAL SMEAR TO LABORATORY 2015 DoD PRESSURIZED/NONPRE SS INHAL TREAT FOR AC AIRWAY OBSTRUCT,THERAP PURPOSE &/FOR DIAG PURP SUCH SPUTUM INDUCTION W AN AEROSOL GEN,NEBULIZER,METE R DOSE INHALER/INTERMIT POSIT PRESS BREATHING (IPPB) DEV 2015 DoD TELE ASSESS & MGT SRV PROV QUAL NONPHYS HLTH CARE PRO TO EST PAT,PARENT,GUARD NOT ORIG REL ASSESS & MGT SRV PROV W/IN PREV 7 DAYS NOR LEAD ASSESS & MGT SRV/PX W/IN NXT 24 HR/SOON APT;5-10 MIN MED DIS 2014 DoD FUNCTIONAL EXPIRATORY VOLUME (FEV1) GREATER THAN OR EQUAL TO 40% OF PREDICTED VALUE (COPD) 2014 DoD TELE ASSESS & MGT SRV PROV QUAL NONPHYS HLTH CARE PRO TO EST PAT,PARENT,GUARD NOT ORIG REL ASSESS & MGT SRV PROV W/IN PREV 7 DAYS NOR LEAD ASSESS & MGT SRV/PX W/IN NXT 24 HR/SOON APT;5-10 MIN MED DIS 2014 DoD TELE ASSESS & MGT SRV PROV QUAL NONPHYS HLTH CARE PRO TO EST PAT,PARENT,GUARD NOT ORIG REL ASSESS & MGT SRV PROV W/IN PREV 7 DAYS NOR LEAD ASSESS & MGT SRV/PX W/IN NXT 24 HR/SOON APT;5-10 MIN MED DIS 2014 DoD TELE ASSESS & MGT SRV PROV QUAL NONPHYS HLTH CARE PRO TO EST PAT,PARENT,GUARD NOT ORIG REL ASSESS & MGT SRV PROV W/IN PREV 7 DAYS NOR LEAD ASSESS & MGT SRV/PX W/IN NXT 24 HR/SOON APT;5-10 MIN MED DIS 2014 DoD TELE ASSESS & MGT SRV PROV QUAL NONPHYS HLTH CARE PRO TO EST PAT,PARENT,GUARD NOT ORIG REL ASSESS & MGT SRV PROV W/IN PREV 7 DAYS NOR LEAD ASSESS & MGT SRV/PX W/IN NXT 24 HR/SOON APT;5-10 MIN MED DIS 2013 DoD TELE ASSESS & MGT SRV PROV QUAL NONPHYS HLTH CARE PRO TO EST PAT,PARENT,GUARD NOT ORIG REL ASSESS & MGT SRV PROV W/IN PREV 7 DAYS NOR LEAD ASSESS & MGT SRV/PX W/IN NXT 24 HR/SOON APT;5-10 MIN MED DIS 2012 DoD SPIROMETRY, INCLUDING GRAPHIC RECORD, TOTAL AND TIMED VITAL CAPACITY, EXPIRATORY FLOW RATE MEASUREMENT(S), WITH OR WITHOUT MAXIMAL VOLUNTARY VENTILATION 2012 DoD PRESSURIZED/NONPRE SS INHAL TREAT FOR AC AIRWAY OBSTRUCT,THERAP PURPOSE &/FOR DIAG PURP SUCH SPUTUM INDUCTION W AN AEROSOL GEN,NEBULIZER,METE R DOSE INHALER/INTERMIT POSIT PRESS BREATHING (IPPB) DEV 2012 DoD DESTRUCTION (EG, LASER SURGERY, ELECTROSURGERY, CRYOSURGERY, CHEMOSURGERY, SURGICAL CURETTEMENT), OF BENIGN LESIONS OTHER THAN SKIN TAGS OR CUTANEOUS VASCULAR PROLIFERATIVE LESIONS; UP TO 14 LESIONS 2012 DoD TELE ASSESS & MGT SRV PROV QUAL NONPHYS HLTH CARE PRO TO EST PAT,PARENT,GUARD NOT ORIG REL ASSESS & MGT SRV PROV W/IN PREV 7 DAYS NOR LEAD ASSESS & MGT SRV/PX W/IN NXT 24 HR/SOON APT;5-10 MIN MED DIS 2012 DoD TELE ASSESS & MGT SRV PROV QUAL NONPHYS HLTH CARE PRO TO EST PAT,PARENT,GUARD NOT ORIG REL ASSESS & MGT SRV PROV W/IN PREV 7 DAYS NOR LEAD ASSESS & MGT SRV/PX W/IN NXT 24 HR/SOON APT;5-10 MIN MED DIS 2012 DoD DETERMINATION OF REFRACTIVE STATE 2011 DoD TELE ASSESS & MGT SRV PROV QUAL NONPHYS HLTH CARE PRO TO EST PAT,PARENT,GUARD NOT ORIG REL ASSESS & MGT SRV PROV W/IN PREV 7 DAYS NOR LEAD ASSESS & MGT SRV/PX W/IN NXT 24 HR/SOON APT;5-10 MIN MED DIS 2011 DoD TELE ASSESS & MGT SRV PROV QUAL NONPHYS HLTH CARE PRO TO EST PAT,PARENT,GUARD NOT ORIG REL ASSESS & MGT SRV PROV W/IN PREV 7 DAYS NOR LEAD ASSESS & MGT SRV/PX W/IN NXT 24 HR/SOON APT;5-10 MIN MED DIS 2011 DoD TELE ASSESS & MGT SRV PROV QUAL NONPHYS HLTH CARE PRO TO EST PAT,PARENT,GUARD NOT ORIG REL ASSESS & MGT SRV PROV W/IN PREV 7 DAYS NOR LEAD ASSESS & MGT SRV/PX W/IN NXT 24 HR/SOON APT;5-10 MIN MED DIS 2011 DoD TELE ASSESS & MGT SRV PROV QUAL NONPHYS HLTH CARE PRO TO EST PAT,PARENT,GUARD NOT ORIG REL ASSESS & MGT SRV PROV W/IN PREV 7 DAYS NOR LEAD ASSESS & MGT SRV/PX W/IN NXT 24 HR/SOON APT;5-10 MIN MED DIS 2011 DoD TELE ASSESS & MGT SRV PROV QUAL NONPHYS HLTH CARE PRO TO EST PAT,PARENT,GUARD NOT ORIG REL ASSESS & MGT SRV PROV W/IN PREV 7 DAYS NOR LEAD ASSESS & MGT SRV/PX W/IN NXT 24 HR/SOON APT;5-10 MIN MED DIS 2010 DoD SCREENING PAPANICOLAOU SMEAR; OBTAINING, PREPARING AND CONVEYANCE OF CERVICAL OR VAGINAL SMEAR TO LABORATORY 2010 DoD TELE ASSESS & MGT SRV PROV QUAL NONPHYS HLTH CARE PRO TO EST PAT,PARENT,GUARD NOT ORIG REL ASSESS & MGT SRV PROV W/IN PREV 7 DAYS NOR LEAD ASSESS & MGT SRV/PX W/IN NXT 24 HR/SOON APT;5-10 MIN MED DIS 2009 DoD TELE ASSESS & MGT SRV PROV QUAL NONPHYS HLTH CARE PRO TO EST PAT,PARENT,GUARD NOT ORIG REL ASSESS & MGT SRV PROV W/IN PREV 7 DAYS NOR LEAD ASSESS & MGT SRV/PX W/IN NXT 24H/SOON APT; 11-20 MIN MED DIS 2009 DoD DETERMINATION OF REFRACTIVE STATE 2008 [facility] SCREENING PAPANICOLAOU SMEAR; OBTAINING, PREPARING AND CONVEYANCE OF CERVICAL OR VAGINAL SMEAR TO LABORATORY 2008 [facility] PREPARATION OF REPORT OF PATIENT'S PSYCHIATRIC STATUS, HISTORY, TREATMENT, OR PROGRESS (OTHER THAN FOR LEGAL OR CONSULTATIVE PURPOSES) FOR OTHER INDIVIDUALS, AGENCIES, OR INSURANCE CARRIERS 2008 [facility] PSYCHIATRIC DIAGNOSTIC INTERVIEW EXAMINATION 2008 DoD TELE ASSESS & MGT SRV PROV QUAL NONPHYS HLTH CARE PRO TO EST PAT,PARENT,GUARD NOT ORIG REL ASSESS & MGT SRV PROV W/IN PREV 7 DAYS NOR LEAD ASSESS & MGT SRV/PX W/IN NXT 24 HR/SOON APT;5-10 MIN MED DIS 2008 DoD SCREENING PAPANICOLAOU SMEAR; OBTAINING, PREPARING AND CONVEYANCE OF CERVICAL OR VAGINAL SMEAR TO LABORATORY 2007 DoD TELE ASSESS & MGT SRV PROV QUAL NONPHYS HLTH CARE PRO TO EST PAT,PARENT,GUARD NOT ORIG REL ASSESS & MGT SRV PROV W/IN PREV 7 DAYS NOR LEAD ASSESS & MGT SRV/PX W/IN NXT 24 HR/SOON APT;5-10 MIN MED DIS 2007 DoD DETERMINATION OF REFRACTIVE STATE 2006 [facility] RESPIRATORY FLOW VOLUME LOOP 2006 [facility] PERCUTANEOUS TESTS (SCRATCH, PUNCTURE, PRICK) WITH ALLERGENIC EXTRACTS, IMMEDIATE TYPE REACTION, INCLUDING TEST INTERPRETATION AND REPORT, SPECIFY NUMBER OF TESTS 2006 [facility] IMMUNIZATION ADMINISTRATION (INCLUDES PERCUTANEOUS, INTRADERMAL, SUBCUTANEOUS, OR INTRAMUSCULAR INJECTIONS); 1 VACCINE (SINGLE OR COMBINATION VACCINE/TOXOID) 2006 [facility] SCREENING PAPANICOLAOU SMEAR; OBTAINING, PREPARING AND CONVEYANCE OF CERVICAL OR VAGINAL SMEAR TO LABORATORY 2005 [facility] PHARMACOLOGIC MANAGEMENT, INCLUDING PRESCRIPTION, USE, AND REVIEW OF MEDICATION WITH NO MORE THAN MINIMAL MEDICAL PSYCHOTHERAPY 2003 [facility] OPHTHALMOLOGICAL SERVICES: MEDICAL EXAMINATION AND EVALUATION WITH INITIATION OF DIAGNOSTIC AND TREATMENT PROGRAM; INTERMEDIATE, NEW PATIENT 2001 [facility] EDUCATIONAL SUPPLIES, SUCH BOOKS, TAPES, AND PAMPHLETS, FOR THE PATIENT'S EDUCATION AT COST TO PHYSICIAN OR OTHER QUALIFIED HEALTH DIESEL ENGINE OPERATOR 2001 [facility] DETERMINATION OF VENOUS PRESSURE 2001 [facility] VOIDING PRESSURE STUDIES (PRINTER REPAIR TECHNICIAN); BLADDER VOIDING PRESSURE, ANY TECHNIQUE 2001 [facility] DETERMINATION OF VENOUS PRESSURE 2001 [facility] PHYS/OTH QUALIFIED HEALTH DIESEL ENGINE OPERATOR QUALIFIED,EDUCATIO N,TRAIN,LICENSURE/ REGULATION (WHEN APPLICABLE) EDUC SER RENDERED TO PATS IN A GRP SETTING (EG,,OBESI TY,OR DIABETIC INSTRUCT) 2001 [facility] SCREENING PAPANICOLAOU SMEAR; OBTAINING, PREPARING AND CONVEYANCE OF CERVICAL OR VAGINAL SMEAR TO LABORATORY 2001 [facility] ULTRASOUND, RETROPERITONEAL (EG, RENAL, AORTA, NODES), REAL TIME WITH IMAGE DOCUMENTATION; LIMITED 2001 [facility] CATHETERIZATION, URETHRA; SIMPLE 1999 [facility] DETERMINATION OF REFRACTIVE STATE 1999 [facility] Non-Physician Phone Call To Patient/Provider Brief (5-10min) Non-Physician Phone Call To Patient/Provider Brief (5-10min) [id number] 2018 MONIKA CHAU [facility] Health And Behavior Intervention, Each 15 Minutes Individual Health And Behavior Intervention, Each 15 Minutes Individual [id number] 2017 MARGAUX ESPINOSA [facility] Health And Behav A e mt Each 15 Min Initial A e ment Health And Behav Assessmt Each 15 Min Initial Assessment [id number] 2017 MARGAUX ESPINOSA [facility] Internet Med Svc Qual Nonphys Healthcare Prof Estab Patient Internet Med Svc Qual Nonphys Healthcare Prof Estab Patient [id number] 2017 NILO GUAJARDO [facility] Non-Physician Phone Call To Patient/Provider Brief (5-10min) Non-Physician Phone Call To Patient/Provider Brief (5-10min) [id number] 2017 ROGELIO SAMUELS [facility] Non-Physician Phone Call To Patient/Provider Brief (5-10min) Non-Physician Phone Call To Patient/Provider Brief (5-10min) [id number] 2017 ROGELIO SAMUELS [facility] Internet Med Svc Qual Nonphys Healthcare Prof Estab Patient Internet Med Svc Qual Nonphys Healthcare Prof Estab Patient [id number] 2016 ABIEL MACKEY [facility] Non-Physician Phone Call To Patient/Provider Brief (5-10min) Non-Physician Phone Call To Patient/Provider Brief (5-10min) [id number] 2016 PAULETTE HOWARD [facility] Non-Physician Phone Call To Patient/Provider Brief (5-10min) Non-Physician Phone Call To Patient/Provider Brief (5-10min) [id number] 2016 DEE MAN [facility] Non-Physician Phone Call To Patient/Provider Brief (5-10min) Non-Physician Phone Call To Patient/Provider Brief (5-10min) [id number] 2015 DEE MAN [facility] Disease management program, follow-up/leobardo e ment 2015 MILEY BAUTISTA [facility] Non-Physician Phone Call To Patient/Provider Brief (5-10min) Non-Physician Phone Call To Patient/Provider Brief (5-10min) [id number] 2015 DONOVAN JC [facility] Non-Physician Phone Call To Patient/Provider Brief (5-10min) Non-Physician Phone Call To Patient/Provider Brief (5-10min) [id number] 2015 DONYA WALL [facility] Disease management program, follow-up/leobardo e ment 2015 NILO GUAJARDO [facility] Non-Physician Phone Call To Patient/Provider Brief (5-10min) Non-Physician Phone Call To Patient/Provider Brief (5-10min) [id number] 2015 DONYA WALL [facility] Non-Physician Phone Call To Patient/Provider Brief (5-10min) Non-Physician Phone Call To Patient/Provider Brief (5-10min) [id number] 2015 DONYA WALL [facility] Urine HCG, Test Urine HCG, Test [id number] 2015 J LUIS STEELE [facility] Biopsy Endometrial, Without Cervical Dilation Biopsy Endometrial, Without Cervical Dilation [id number] 2015 J LUIS STEELE [facility] Screening papanicolaou smear; obtaining, preparing and conveyance of cervical or vaginal smear to laboratory 2015 J LUIS STEELE [facility] Respiratory Equip IPPB Nebul Gla /Autoclav Bottle Respiratory Equip IPPB Nebul Glass/Autoclav Bottle [id number] 2015 GOLDY BUCHANAN [facility] Non-Physician Phone Call To Patient/Provider Brief (5-10min) Non-Physician Phone Call To Patient/Provider Brief (5-10min) [id number] 2014 DONYA WALL [facility] Prev Med Documented/Reviewe d FEV > or = 40% Predicted Value Prev Med Documented/Reviewe d FEV > or = 40% Predicted Value [id number] 2014 HUMBERTO HAGAN [facility] Non-Physician Phone Call To Patient/Provider Brief (5-10min) Non-Physician Phone Call To Patient/Provider Brief (5-10min) [id number] 2014 DONYA WALL [facility] Non-Physician Phone Call To Patient/Provider Brief (5-10min) Non-Physician Phone Call To Patient/Provider Brief (5-10min) [id number] 2014 SHERICE HELMS [facility] Non-Physician Phone Call To Patient/Provider Brief (5-10min) Non-Physician Phone Call To Patient/Provider Brief (5-10min) [id number] 2014 KRIS MAGDALENO [facility] Non-Physician Phone Call To Patient/Provider Brief (5-10min) Non-Physician Phone Call To Patient/Provider Brief (5-10min) [id number] 2013 KRIS MAGDALENO [facility] Non-Physician Phone Call To Patient/Provider Brief (5-10min) Non-Physician Phone Call To Patient/Provider Brief (5-10min) [id number] 2012 SHERICE HELMS [facility] Spirometry Pre-bronchodilator Spirometry Pre-bronchodilator 55561 2012 ABIEL ELLINGTON FVC 102% FEV1 99% FEV1% 98% DoD Respiratory Equip IPPB Related Equip Nebulizer Respiratory Equip IPPB Related Equip Nebulizer [id number] 2012 MAU SAMUEL Administered albuteral 0.083% via nebulizer. repeat O2Sat 98% but still with significant wheezing throughout lung hawkins. Repeat treatment 20 minutes later: 99%O2Sat RA; lung hawkins CTA DoD Destruction Of Benign Lesion By Cryosurgery Destruction Of Benign Lesion By Cryosurgery [id number] 2012 MAU SAMUEL Indication: [place] Location: right forearm Number Treated: 1 Procedure: - skin lesion was treated using 3 freeze-thaw cycles, with the freeze duration determined by the extension of the ice ball to 2 to 3 mm beyond the edge of the lesion. - The patient tolerated the procedure well. - Patient instructed to keep the area clean and dry x 48hrs. - Use of OTC meds for pain relief, management of minor bleeding and signs & symptoms of infection were reviewed. RTC for retreatment in 10 days if lesion remains after this tx. RTC sooner for any s/sx of infection DoD Non-Physician Phone Call To Patient/Provider Brief (5-10min) Non-Physician Phone Call To Patient/Provider Brief (5-10min) [id number] 2012 GOLDY SHERWOOD [facility] Non-Physician Phone Call To Patient/Provider Brief (5-10min) Non-Physician Phone Call To Patient/Provider Brief (5-10min) [id number] 2012 ABIEL MACKEY Determination Of Refractive State Determination Of Refractive State [id number] 2011 TRISTIAN GIRALDO Ophthalmological Prior Patient Start [facility] Ophthalmological Prior Patient Start Comprehensive Care [id number] 2011 TRISTIAN GIRALDO Fundus Photography Fundus Photography [id number] 2011 TRISTIAN GIRALDO Non-Physician Phone Call To Patient/Provider Brief (5-10min) Non-Physician Phone Call To Patient/Provider Brief (5-10min) [id number] 2011 ROSANNE SOARES Non-Physician Phone Call To Patient/Provider Brief (5-10min) Non-Physician Phone Call To Patient/Provider Brief (5-10min) [id number] 2011 ROSANNE SOARES Non-Physician Phone Call To Patient/Provider Brief (5-10min) Non-Physician Phone Call To Patient/Provider Brief (5-10min) [id number] 2011 ROSANNE SOARES Non-Physician Phone Call To Patient/Provider Brief (5-10min) Non-Physician Phone Call To Patient/Provider Brief (5-10min) [id number] 2011 ROSANNE SOARES Non-Physician Phone Call To Patient/Provider Brief (5-10min) Non-Physician Phone Call To Patient/Provider Brief (5-10min) [id number] 2010 ROSANNE SOARES Screening papanicolaou smear; obtaining, preparing and conveyance of cervical or vaginal smear to laboratory 2010 KRIS FLORES Non-Physician Phone Call To Patient/Provider Brief (5-10min) Non-Physician Phone Call To Patient/Provider Brief (5-10min) [id number] 2009 [facility] Non-Physician Phone Call To Pt/Provider Intermed (11-20 min) Non-Physician Phone Call To Pt/Provider Intermed (11-20 min) [id number] 2009 [facility]UEZ [facility] Determination Of Refractive State Determination Of Refractive State [id number] 2008 TAVON GOMEZ [employer] Fund[employer] Photography [id number] 2008 TAVON GOMEZ Scanning Computerized Ophthalmic Diagnostic Imaging 2008 TAVON GOMEZ Ophthalmological Prior Patient Start Comprehensive Care Ophthalmological Prior Patient Start Comprehensive Care [id number] 2008 TAVON GOMEZ Screening papanicolaou smear; obtaining, preparing and conveyance of cervical or vaginal smear to laboratory 2008 LACIE MARINO Psychiatric Therapy Preparation of Psychiatric Status Report Psychiatric Therapy Preparation of Psychiatric Status Report [id number] 2008 DARIUSZ JAUREGUI Psychiatric Evaluation Comprehensive Examination Psychiatric Evaluation Comprehensive Examination [id number] 2008 DARIUSZ JAUREGUI Non-Physician Phone Call To Patient/Provider Brief (5-10min) Non-Physician Phone Call To Patient/Provider Brief (5-10min) [id number] 2008 DARBY STEWARD Screening papanicolaou smear; obtaining, preparing and conveyance of cervical or vaginal smear to laboratory 2007 KRIS FLORES Non-Physician Phone Call To Patient/Provider Brief (5-10min) Non-Physician Phone Call To Patient/Provider Brief (5-10min) [id number] 2007 DARBY STEWARD Determination Of Refractive State Determination Of Refractive State [id number] 2006 AVELINA ARENAS Ophthalmological New Patient Start Comprehensive Care Ophthalmological New Patient Start Comprehensive Care [id number] 2006 AVELINA ARENAS Pulmonary Function Tests Flow Volume Loop Pulmonary Function Tests Flow Volume Loop 32471 2006 REBECCA SILVER FVC 3.14, 90% expected FEV1 2.47, 82% expected ratio 78.7 FEF 25-75 2.29, 63% expected [facility] Pulmonary Function FEV1 % change after bronchodilator Pulmonary Function FEV1 % change after bronchodilator 28763 2006 REBECCA SILVER albuterol nebulizer [facility] Allergy Percutaneous tests - allergenic extracts 2006 REBECCA SILVER [facility] Pulmonary Function Tests Flow Volume Loop Pulmonary Function Tests Flow Volume Loop 20068 2006 REBECCA SILVER [facility] Influenza Split Virus Vaccine Age 3+ Years Intramuscular 2006 DAVID LOPEZ [facility] Screening papanicolaou smear; obtaining, preparing and conveyance of cervical or vaginal smear to laboratory 2005 SELENE OSORIO [facility] Psychoactive Medication Management Psychoactive Medication Management 24055 2003 SAVANNAH MCCOLLUM [facility] Psychoactive Medication Management Psychoactive Medication Management [id number] 2003 SAVANNAH MCCOLLUM [facility] Waiver services; not otherwise specified (NOS) ADAM WEST [facility] Screening papanicolaou smear; obtaining, preparing and conveyance of cervical or vaginal smear to laboratory LACIE MARINO [facility] Non-Physician Phone Call To Patient/Provider Brief (5-10min) Non-Physician Phone Call To Patient/Provider Brief (5-10min) [id number] ABIEL MACKEY [facility] Non-Physician Phone Call To Pt/Provider Intermed (11-20 min) Non-Physician Phone Call To Pt/Provider Intermed (11-20 min) [id number] LUCIANO PALACIOS [facility] Social History Combined list of available smoking, tobacco, and other social history from Department of Defense and Veterans Affairs facilities. Social History Type Response Date Comment [facility] e Sex Representation Female (finding) 08/22/2022 Unknown Organization Tobacco Cigarette use: Former-cigarette user. Average PACKS per day: (10 cigarettes = 0.5 packs) 1. Total years of smoking cigarettes: 25. *Total pack years (*reqd for current/former users to complete the Rec. Packs/day times total years) 25. *Stopped cigarettes age (*required for former users to complete the Recommendation) 53 Years. Other Tobacco use: Never-other tobacco user (not cigarettes). [facility] Sexual Orientation [facility] Gender identity [facility] This section is an empty social history section. DoD Assessment and Plan Combined list of future care activities from Department of Defense and Veterans Affairs facilities (e.g., assessment and plan notes, appointments, orders, and referrals). Additional future care activities may be listed in the Plan of Care section. Result Assessment and Plan Date Source Assessment and Plan Extracted from:Title : 0055C Clinic - Knee pain Author: ROBBIE HECTOR MD Date: 07/29/24 1. L eft knee pain Left knee pain w ith some r ight knee pain for the past 3 wks since hitting the left k nee a gainst a pallet at work. Exam relatively unremarkable w ith no concerns for tears on exam. Low concern f or fractures given t he mechanism of i njury. Overall, most concerning for soft tissue injury. Right knee pain is likely due to overcompensation. - XR to r/o worsening OA - Provided [facility] Acute Knee Pain protocol - Ketorolac 30mg IM given in clinic - Meloxicam 7.5mg QHS for 14 days, avoid other NSAIDS. - Will consider PT vs steroid injection in clinic if pain persists Ordered: meloxicam(meloxicam 7.5 mg oral tablet), 1 tab(s), Oral, every day at bedtime, # 14 tab(s), 0 total refill(s), Maintenance, Pharmacy: [facility] [Last filled 07/29/24] 2. P ain of bilateral knee joints Orders: XR Knee Weight Bearing 3+ Left Patient encouraged to return to clinic, present to UCC or ER for persistent worsening or development of other concerning symptoms. Patient cites understanding and agrees with plan of care. A total of 25 minutes was spent on this visit reviewing previous notes, counseling the patient on the listed diagnoses, reviewing/ordering tests, adjusting medications, and documenting the findings in this note. Robbie Hector MD Capt, [address], [facility] Internal Medicine Staff Physician Extracted from:Title: 0055C Clinic - Chest pain/anxiety Author: ROBBIE HECTOR MD Date: 03/12/24 1. C hest pain She went to the [place] ED on Mar 05 for SOB and chest tightness. They obtained an EKG, CXR, and serial troponins (2x) that were unremarkable. Heart score 3. They determined that this was likely due to anxiety but recommended outpatient evaluation for stable angina. - Referral to [place] cardiology for outpatient ischemic workup Ordered: Referral Request 2.0 - DoD 2. D yspnea Ordered: Referral Request 2.0 - DoD 3. A nxiety She reports worsening anxiety lately centered around the unexpected of her at the beginning of the year and worrying about her adult children who lives with her. HAYDEE-7: 4. PHQ-9: 7. Denies SI/HI. She follows with a psych PA who she is seeing on Friday. - Scheduled an appt with OP for acute counseling on Friday - Defer to Psych for med titration. Patient encouraged to return to clinic, present to UCC or ER for persistent worsening or development of other concerning symptoms. Patient cites understanding and agrees with plan of care. A total of 40 minutes was spent on this visit reviewing previous notes, counseling the patient on the listed diagnoses, reviewing/ordering tests, adjusting medications, and documenting the findings in this note. Robbie Hector MD Capt, [address], [facility] Internal Medicine Staff Physician Extracted from:Title: Ambulatory Patient Education Author: ROBBIE HECTOR MD Date: 03/06/24 Gastroenterology Diverticulosis Diverticulosis is when small pouches called diverticula form in the wall of the colon. The colon is where water is absorbed. It is also where poop (stool) is formed. The pouches form when the inside layer of the colon pushes through weak spots in the outer layers of the colon. You may have a few pouches or many of them. In most cases, the pouches do not cause problems. If they become inflamed or infected, you may have a condition called diverticulitis. What are the causes? The cause of this condition is not known. What increases the risk? You are more likely to get this condition if: You are older than 60 years of age. You do not eat enough fiber or you get constipated a lot. You are overweight. You do not get enough exercise. You smoke. You take qygm-uzs-iabjsvk pain medicines. You have a family history of the condition. What are the signs or symptoms? In most people, there are no symptoms. If you do have symptoms, they may include: Bloating. Stomach cramps. Constipation or diarrhea. Pain in the lower left side of your abdomen. How is this diagnosed? This condition is often diagnosed during an exam for other colon problems. It may be diagnosed when you have: A colonoscopy. This is when a tube with a camera on the end is used to look at your colon. A barium enema. This is an X-ray exam that uses dye to look at your colon. A CT scan. How is this treated? You may not need treatment. Your health care provider will tell you what you can do at home to help prevent problems. You may need treatment if you have symptoms or if you have had diverticulitis before. You may be told to: Eat a high-fiber diet. Take medicine to relax your colon. Lose weight. Follow these instructions at home: Medicines Take xckt-efy-hhgeowi and prescription medicines only as told by your provider. If told, take a fiber supplement or probiotic. Managing constipation Your condition may cause constipation. To prevent or treat constipation, you may need to: Drink enough fluid to keep your pee (urine) pale yellow. Take kgny-zmr-powxgnk or prescription medicines. Eat foods that are high in fiber, such as beans, whole grains, and fresh fruits and vegetables. Limit foods that are high in fat and processed sugars, such as fried or sweet foods. Try not to strain when you poop. Contact a health care provider if: Your symptoms get worse all of a sudden. You have pain in your abdomen that gets worse. You have bloating or stomach cramps. You continue to have frequent constipation. You have a fever or chills. You vomit. Your poop is bloody, black, or tarry. This information is not intended to replace advice given to you by your health care provider. Make sure you discuss any questions you have with your health care provider. Document Revised: 03/13/2023 Document Reviewed: 03/13/2023 [employer] Patient Education 2023 [employer] Orthopedics Osteopenia Osteopenia is a loss of thickness (density) inside the bones. Another name for osteopenia is low bone mass. Mild osteopenia is a normal part of aging. It is not a disease, and it does not cause symptoms. However, if you have osteopenia and continue to lose bone mass, you could develop a condition that causes the bones to become thin and break more easily (osteoporosis). Osteoporosis can cause you to lose some height, have back pain, and have a stooped posture. Although osteopenia is not a disease, making changes to your lifestyle and diet can help to prevent osteopenia from developing into osteoporosis. What are the causes? Osteopenia is caused by loss of calcium in the bones. Bones are constantly changing. Old bone cells are continually being replaced with new bone cells. This process builds new bone. The mineral calcium is needed to build new bone and maintain bone density. Bone density is usually highest around age 35. After that, most people's bodies cannot replace all the bone they have lost with new bone. What increases the risk? You are more likely to develop this condition if: You are older than age 50. You are a woman who went through menopause early. You have a long illness that keeps you in bed. You do not get enough exercise. You lack certain nutrients (malnutrition). You have an overactive thyroid gland (hyperthyroidism). You use products that contain nicotine or tobacco, such as cigarettes, e-cigarettes and chewing tobacco, or you drink a lot of alcohol. You are taking medicines that weaken the bones, such as steroids. What are the signs or symptoms? This condition does not cause any symptoms. You may have a slightly higher risk for bone breaks (fractures), so getting fractures more easily than normal may be an indication of osteopenia. How is this diagnosed? This condition may be diagnosed based on an X-ray exam that measures bone density (dual-energy X-ray absorptiometry, or DEXA). This test can measure bone density in your hips, spine, and wrists. Osteopenia has no symptoms, so this condition is usually diagnosed after a routine bone density screening test is done for osteoporosis. This routine screening is usually done for: Women who are age 65 or older. Men who are age 70 or older. If you have risk factors for osteopenia, you may have the screening test at an earlier age. How is this treated? Making dietary and lifestyle changes can lower your risk for osteoporosis. If you have severe osteopenia that is close to becoming osteoporosis, this condition can be treated with medicines and dietary supplements such as calcium and vitamin D. These supplements help to rebuild bone density. Follow these instructions at home: Eating and drinking Eat a diet that is high in calcium and vitamin D. Calcium is found in dairy products, beans, salmon, and leafy green vegetables like spinach and broccoli. Look for foods that have vitamin D and calcium added to them (fortified foods), such as orange juice, cereal, and bread. Lifestyle Do 30 minutes or more of a weight-bearing exercise every day, such as walking, jogging, or playing a sport. These types of exercises strengthen the bones. Do not use any products that contain nicotine or tobacco, such as cigarettes, e-cigarettes, and chewing tobacco. If you need help quitting, ask your health care provider. Do not drink alcohol if: Your health care provider tells you not to drink. You are , may be , or are planning to become . If you drink alcohol: Limit how much you use to: 0 1 drink a day for women. 0 2 drinks a day for men. Be aware of how much alcohol is in your drink. In the [place] one drink equals one 12 oz bottle of beer (355 mL), one 5 oz glass of wine (148 mL), or one 1 oz glass of hard liquor (44 mL). General instructions Take dpfo-gas-loelppu and prescription medicines only as told by your health care provider. These include vitamins and supplements. Take precautions at home to lower your risk of falling, such as: Keeping rooms well-lit and free of clutter, such as cords. Installing safety rails on stairs. Using rubber mats in the bathroom or other areas that are often wet or slippery. Keep all follow-up visits. This is important. Contact a health care provider if: You have not had a bone density screening for osteoporosis and you are: A woman who is age 65 or older. A man who is age 70 or older. You are a postmenopausal woman who has not had a bone density screening for osteoporosis. You are older than age 50 and you want to know if you should have bone density screening for osteoporosis. Summary Osteopenia is a loss of thickness (density) inside the bones. Another name for osteopenia is low bone mass. Osteopenia is not a disease, but it may increase your risk for a condition that causes the bones to become thin and break more easily (osteoporosis). You may be at risk for osteopenia if you are older than age 50 or if you are a woman who went through early menopause. Osteopenia does not cause any symptoms, but it can be diagnosed with a bone density screening test. Dietary and lifestyle changes are the first treatment for osteopenia. These may lower your risk for osteoporosis. This information is not intended to replace advice given to you by your health care provider. Make sure you discuss any questions you have with your health care provider. Document Revised: 11/30/2020 Document Reviewed: 11/30/2020 [employer] Patient Education 2023 [employer]. Extracted from:Title: 0055C Clinic - Sinusitis/osteopenia Author: ROBBIE HECTOR MD Date: 02/26/24 1. S inusitis She reports that she was recently diagnosed with sinusitis at urgent care and started on antibiotics (clinda) w ithout resolution of her sxms. She has also had worsening rhinitis sxms in general since being switched from Dupixent to Nucala. There was concern that Dupixent was raising her eosinophil count, but Nucala did not work. She is back on Dupixent but just started. Sinusitis. Difficult to determine if this is incompletely treated sinusitis vs worsening of chronic sinusitis sxms. Discussed the risks and benefits of antibiotics. - Switch to doxycycline - Start Flonase and Astelin for treatment of underlying rhinitis - Continue with coffee grower 2. O ther specified counseling Recent bnoe scan showed osteopenia as well as incidental diverticulosis. Discussed the underlying pathophysiology, and educated on treatment options. Agree with plan to replace vitamin D and repeat bone scan. Educated on diverticulosis. 3. O steopenia 4. D iverticulosis of colon Patient encouraged to return to clinic, present to UCC or ER for persistent worsening or development of other concerning symptoms. Patient cites understanding and agrees with plan of care. A total of 40 minutes was spent on this visit reviewing previous notes, counseling the patient on the listed diagnoses, reviewing/ordering tests, adjusting medications, and documenting the findings in this note. Robbie Hector MD Capt, [address], [facility] Internal Medicine Staff Physician Extracted from:Title: 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/WWE, pap Author: LACIE MARINO NP Date: 01/13/24 1. E ncounter for gynecological examination (general) (routine) with abnormal findings Over 50% of m inute visit spent face to face with patient on education, reviewing history, and developing plan of care. Continue monthly BSE and yearly well woman exams. Return to clinic in 1 year. Exercise: 30 minutes of moderate exercise 5 days a week including cardio and strength training is recommended for a healthy lifestyle. T his should be in addition to your normal daily work/routine. If you are trying to lose weight more exercise along with a healthy diet is recommended. Supplements/Vitamins: If you are not following, or able to follow a well-balanced diet indicated below due to personal or medical reasons, it is recommended you take a m ultivitamin. This is especially important if you are trying to get as w omen need additional folic acid before and during (400-1000 micrograms per day). Daily calcium intake should be around 1200 mg per day w hich is 120% of the recommended daily allowance if looking at food labels.? W e recommend V itamin D3 2,000-3,000 international units a day i f you have not already been identified with an insufficiency or deficiency. Nutrition: A healthy diet with protein, vegetables, fruits, grains, and dairy is advised. More information including example serving sizes can be found at h ttps://www.TrashOutmyplate.gov/.&# 160; T hese amounts are appropriate for individuals who get less than 30 minutes per day of moderate physical activity, beyond normal daily activities. Those who are more physically active may be able to consume more while staying within calorie needs. Ordered: Lipid Panel 2. E ncounter for screening for malignant neoplasm of cervix co test 5yrs if neg Ordered: AP Cytology 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 HPV High Risk (16/18/Other) 3. O ther disorders of thyroid due for annual US Ordered: US Thyroid 4. A ge related osteopenia stressed ca, vit D, wt bearing exercise Ordered: Vitamin D [address] Bone Density Axial Skeleton 5. 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 A typical squamous cells of undetermined significance on cytologic smear of cervix (ASC-US) can return to routine screening if neg 7. O besity, unspecified increase exercise, decrease calories to decrease wt/BMI; advised healthy lifestyle, namely whole food plant based diet w/ regular exercise. Advise nutrition hannah/diary to track energy intake vs expenditure f/u prn PVUA. 8. B LA 33.0 to 33.9 Pt questions addressed and written discharge instructions were provided to the patient. Lacie Alberto Darinel [facility] [employer]ICAL [employer] [facility] Extracted from:Title: 0055C Clinic - Dry mouth Author: ROBBIE HECTOR MD Date: 12/01/23 1. D ry mouth She reports one mouth of an enlarged tongue and dry mouth leading to mild dysarthria. This is obvious on exam. Sxms have persisted but have not worsened s andreina early July. S he also reports dry eyes. There are no other associated sxms. Lab workup, including CBC, RFP, UA, ESR, ANGELA, and anti-Ro/anti-La are only notable for elevated absolute eosinophil count to 1200. This is stable to about where it has been for close to 20 years. There are no systemic sxms to suggest an primary eosinophilic process. There are no medications that would explain her sxms. Despite the negative labs, primary Sjogren's seems to be the most likely diagnosis given the persistence for m ore than 3 months. - Refer to rheumatology for clarification of the diagnosis and further management - Continue with salivary stimulants Ordered: Referral Request 2.0 - DoD 2. M acroglossia Likely due to dry mouth Ordered: Referral Request 2.0 - DoD Patient encouraged to return to clinic, present to UCC or ER for persistent worsening or development of other concerning symptoms. Patient cites understanding and agrees with plan of care. A total of 25 minutes was spent on this visit reviewing previous notes, counseling the patient on the listed diagnoses, reviewing/ordering tests, adjusting medications, and documenting the findings in this note. Robbie Hector MD Capt, [address] [facility] Internal Medicine Staff Physician Extracted from:Title: 0055 [facility] Virtual Macroglossia Author: SWAPNIL RHOADES DO Date: 10/03/23 Macroglossia Patient is a 58 year old female with history of HTN, HLD, asthma, and nicotine dependence presenting virtually for persistent macroglossia symptoms. Patient notes that there has been improvement in her pain and the swelling sensation since restarting her dupixent. Currently no new complaints. Exam deferred 2/2 virtual encounter. At this time, advised patient that monitoring symptoms given improvement is likely the best course of action. Etiology not fully clear, but may be related to dupixent withdrawing. As noted previously on my exams, no obvious tongue swelling noted. Salivary pooling noted on most recent exam. Labwork discussed in this encounter, negative for any findings consistent with autoimmune conditions. Eosinophilia chronic as noted. As noted in previous encounter, if symptoms were to progress and worsen rather than improve, may consider work up for infiltrative dz (Amyloid/Sarcoid). Patient encouraged to return to clinic, present [place] [facility] [place] for persistent worsening or development of other concerning symptoms. Patient cites understanding and agrees with plan of care. A total of 30 minutes was spent on this visit reviewing previous notes, counseling the patient on the listed diagnoses, reviewing/ordering tests, adjusting medications, and documenting the findings in this note. Pati Rhoades DO, [facility], [facility] Internal Medicine, [place] [employer] Extracted from:Title: 0055C [facility] - Dry mouth Author: ROBBIE HECTOR MD Date: 09/17/23 1. D ry mouth She reports one mouth of an enlarged tongue and dry mouth leading to mild dysarthria. Sxms have persisted but have not worsened during this time. There are no associated sxms. Lab workup, including CBC, RFP, UA, ESR, ANGELA, and anti-Ro/anti-La are only notable for elevated absolute eosinophil count to 1200. This is stable to about where it has been for close to 20 years. Overall, there is a dry mouth, but no appreciable macroglossia and no tongue indentations. There are no systemic sxms to suggest an primary eosinophilic process. With her hxy, I think atopy is the underlying cause of the elevations. - Recommended continued observation and using sugar-free gum to help with the dry mouth - F/u if sxms persist or change - If macroglossia progresses, can consider workup for sarcoidosis or amyloidosis 2. M acroglossia See above Patient encouraged to return to clinic, present [place] [facility] [place] for persistent worsening or development of other concerning symptoms. Patient cites understanding and agrees with plan of care. A total of 30 minutes was spent on this visit reviewing previous notes, counseling the patient on the listed diagnoses, reviewing/ordering tests, adjusting medications, and documenting the findings in this note. Robbie Hector MD Capt, [address], [facility], Internal Medicine Staff Physician Extracted from:Title: 0055 IMCL Tongue Swelling and Dry mouth Author: SWAPNIL RHOADES DO Date: 09/10/23 1. T ongue swelling 2. A phthous ulcer 3. I tchy eye Patient presenting with 3 weeks of the sensation that her tongue is swelling, her mouth is dry, and painful ulceration on tongue. Notes associated itchy eyes. Denies any inciting factor. No new medications. Associated eye itching. Exam remarkable for no obvious candidal plaques, tongue does not seem grossly enlarged. Salivary pooling noted. Aphthous ulcer noted on r ight tongue. No gingival disease noted. Etiology of symptoms unclear at this time, no new medications, clinically, patient's symptoms align with possible development of sjrogen's syndrome, but no obvious parotid enlargement or eye physical exam findings. At this time, will treat with benzocaine to assist with pain, and place lab work for broad autoimmune work up to include sjrogens. Plan to follow up on results. Patient encouraged to return to clinic, present to UCC or ER for persistent worsening or development of other concerning symptoms. Patient cites understanding and agrees with plan of care. A total of 40 minutes was spent on this visit reviewing previous notes, counseling the patient on the listed diagnoses, reviewing/ordering tests, adjusting medications, and documenting the findings in this note. Orders: *Differential Automated *Glomerular Filtration Rate, Estimated CBC w/ Diff ESR [employer] Miscellaneous Manual LC Renal Function Panel Urinalysis with Microscopic and Culture if Indicated Pati Rhoades DO, [facility], , [facility] Internal Medicine, [place] [employer] Extracted from:Title: 0055 IM Plantar Fasciitis Author: SWAPNIL RHOADES DO Date: 03/25/23 1. P lantar fasciitis Patient is a 58 year old female with history of HLD presenting today to discuss foot pain for months. Denies any fevers, chills, trauma, skin changes. Pain located prmarily in mid foot region of right foot, plantar surface. Exam notable for mid foot and calcaneal tenderness of right foot. Left foot unremarkable. Pain likely 2/2 plantar fasciitis, less likely skin pathology vs bony abnormality. Discussed conservative treatment to include shoe inserts for proper arch support and utilizing roller for point stretching of plantar fascia. Patient encouraged to return to clinic, present to UC or ER for persistent worsening or development of other concerning symptoms. Patient cites understanding and agrees with plan of care. A total of 40 minutes was spent on this visit reviewing previous notes, counseling the patient on the listed diagnoses, reviewing/ordering tests, adjusting medications, and documenting the findings in this note. 2. O besity 3. B LA 30+ - obesity Patient also notes concerns about her wt. Discussed diet and exercise to benefit wt. Specifically recommended Mediterranean, low carb, and whole food plant based diet. Discussed ACC/AHA recommendations for exercise (150 min/wk). offered referral to nutrition, but franciscotent politely declines. Encouraged 6 month trial of diet and exercise regimen. Patient cites understanding and agrees. Pati Rhoades DO, M[facility], , [facility] Internal Medicine, [employer] Future Scheduled TestsLaboratoryVitamin D 25 Hydroxy Level 04/12/24Lipid Panel 04/12/24 01/09/2025 0055C-[facility] [facility] Assessment and Plan Extracted from:Title : 0055C IM Clinic - Knee pain Author: ROBBIE HECTOR MD Date: 07/29/24 1. L eft knee pain Left knee pain w ith some r ight knee pain for the past 3 wks since hitting the left k nee a gainst a pallet at work. Exam relatively unremarkable w ith no concerns for tears on exam. Low concern f or fractures given t he mechanism of i njury. Overall, most concerning for soft tissue injury. Right knee pain is likely due to overcompensation. - XR to r/o worsening OA - Provided [facility] Acute Knee Pain protocol - Ketorolac 30mg IM given in clinic - Meloxicam 7.5mg QHS for 14 days, avoid other NSAIDS. - Will consider PT vs steroid injection in clinic if pain persists Ordered: meloxicam(meloxicam 7.5 mg oral tablet), 1 tab(s), Oral, every day at bedtime, # 14 tab(s), 0 total refill(s), Maintenance, Pharmacy: [facility] [Last filled 07/29/24] 2. P ain of bilateral knee joints Orders: XR Knee Weight Bearing 3+ Left Patient encouraged to return to clinic, present to UCC or ER for persistent worsening or development of other concerning symptoms. Patient cites understanding and agrees with plan of care. A total of 25 minutes was spent on this visit reviewing previous notes, counseling the patient on the listed diagnoses, reviewing/ordering tests, adjusting medications, and documenting the findings in this note. MD Marvin Milan, [address] [facility] Internal Medicine Staff Physician Extracted from:Title: 0055C Clinic - Chest pain/anxiety Author: ROBBIE HECTOR MD Date: 03/12/24 1. C hest pain She went to the [place] ED on Mar 05 for SOB and chest tightness. They obtained an EKG, CXR, and serial troponins (2x) that were unremarkable. Heart score 3. They determined that this was likely due to anxiety but recommended outpatient evaluation for stable angina. - Referral to [place] cardiology for outpatient ischemic workup Ordered: Referral Request 2.0 - DoD 2. D yspnea Ordered: Referral Request 2.0 - DoD 3. A nxiety She reports worsening anxiety lately centered around the unexpected of her at the beginning of the year and worrying about her adult children who lives with her. HAYDEE-7: 4. PHQ-9: 7. Denies SI/HI. She follows with a psych PA who she is seeing on Friday. - Scheduled an appt with OP for acute counseling on Friday - Defer to Psych for med titration. Patient encouraged to return to clinic, present to UCC or ER for persistent worsening or development of other concerning symptoms. Patient cites understanding and agrees with plan of care. A total of 40 minutes was spent on this visit reviewing previous notes, counseling the patient on the listed diagnoses, reviewing/ordering tests, adjusting medications, and documenting the findings in this note. MD Marvin Milan, [address] [facility] Internal Medicine Staff Physician Extracted from:Title: Ambulatory Patient Education Author: ROBBIE HECTOR MD Date: 03/06/24 Gastroenterology Diverticulosis Diverticulosis is when small pouches called diverticula form in the wall of the colon. The colon is where water is absorbed. It is also where poop (stool) is formed. The pouches form when the inside layer of the colon pushes through weak spots in the outer layers of the colon. You may have a few pouches or many of them. In most cases, the pouches do not cause problems. If they become inflamed or infected, you may have a condition called diverticulitis. What are the causes? The cause of this condition is not known. What increases the risk? You are more likely to get this condition if: You are older than 60 years of age. You do not eat enough fiber or you get constipated a lot. You are overweight. You do not get enough exercise. You smoke. You take gple-esx-lzqqcdp pain medicines. You have a family history of the condition. What are the signs or symptoms? In most people, there are no symptoms. If you do have symptoms, they may include: Bloating. Stomach cramps. Constipation or diarrhea. Pain in the lower left side of your abdomen. How is this diagnosed? This condition is often diagnosed during an exam for other colon problems. It may be diagnosed when you have: A colonoscopy. This is when a tube with a camera on the end is used to look at your colon. A barium enema. This is an X-ray exam that uses dye to look at your colon. A CT scan. How is this treated? You may not need treatment. Your health care provider will tell you what you can do at home to help prevent problems. You may need treatment if you have symptoms or if you have had diverticulitis before. You may be told to: Eat a high-fiber diet. Take medicine to relax your colon. Lose weight. Follow these instructions at home: Medicines Take krmh-ura-kvwfosj and prescription medicines only as told by your provider. If told, take a fiber supplement or probiotic. Managing constipation Your condition may cause constipation. To prevent or treat constipation, you may need to: Drink enough fluid to keep your pee (urine) pale yellow. Take nman-dqx-azqtnnl or prescription medicines. Eat foods that are high in fiber, such as beans, whole grains, and fresh fruits and vegetables. Limit foods that are high in fat and processed sugars, such as fried or sweet foods. Try not to strain when you poop. Contact a health care provider if: Your symptoms get worse all of a sudden. You have pain in your abdomen that gets worse. You have bloating or stomach cramps. You continue to have frequent constipation. You have a fever or chills. You vomit. Your poop is bloody, black, or tarry. This information is not intended to replace advice given to you by your health care provider. Make sure you discuss any questions you have with your health care provider. Document Revised: 03/13/2023 Document Reviewed: 03/13/2023 [employer] Patient Education 2023 [employer]. Orthopedics Osteopenia Osteopenia is a loss of thickness (density) inside the bones. Another name for osteopenia is low bone mass. Mild osteopenia is a normal part of aging. It is not a disease, and it does not cause symptoms. However, if you have osteopenia and continue to lose bone mass, you could develop a condition that causes the bones to become thin and break more easily (osteoporosis). Osteoporosis can cause you to lose some height, have back pain, and have a stooped posture. Although osteopenia is not a disease, making changes to your lifestyle and diet can help to prevent osteopenia from developing into osteoporosis. What are the causes? Osteopenia is caused by loss of calcium in the bones. Bones are constantly changing. Old bone cells are continually being replaced with new bone cells. This process builds new bone. The mineral calcium is needed to build new bone and maintain bone density. Bone density is usually highest around age 35. After that, most people's bodies cannot replace all the bone they have lost with new bone. What increases the risk? You are more likely to develop this condition if: You are older than age 50. You are a woman who went through menopause early. You have a long illness that keeps you in bed. You do not get enough exercise. You lack certain nutrients (malnutrition). You have an overactive thyroid gland (hyperthyroidism). You use products that contain nicotine or tobacco, such as cigarettes, e-cigarettes and chewing tobacco, or you drink a lot of alcohol. You are taking medicines that weaken the bones, such as steroids. What are the signs or symptoms? This condition does not cause any symptoms. You may have a slightly higher risk for bone breaks (fractures), so getting fractures more easily than normal may be an indication of osteopenia. How is this diagnosed? This condition may be diagnosed based on an X-ray exam that measures bone density (dual-energy X-ray absorptiometry, or DEXA). This test can measure bone density in your hips, spine, and wrists. Osteopenia has no symptoms, so this condition is usually diagnosed after a routine bone density screening test is done for osteoporosis. This routine screening is usually done for: Women who are age 65 or older. Men who are age 70 or older. If you have risk factors for osteopenia, you may have the screening test at an earlier age. How is this treated? Making dietary and lifestyle changes can lower your risk for osteoporosis. If you have severe osteopenia that is close to becoming osteoporosis, this condition can be treated with medicines and dietary supplements such as calcium and vitamin D. These supplements help to rebuild bone density. Follow these instructions at home: Eating and drinking Eat a diet that is high in calcium and vitamin D. Calcium is found in dairy products, beans, salmon, and leafy green vegetables like spinach and broccoli. Look for foods that have vitamin D and calcium added to them (fortified foods), such as orange juice, cereal, and bread. Lifestyle Do 30 minutes or more of a weight-bearing exercise every day, such as walking, jogging, or playing a sport. These types of exercises strengthen the bones. Do not use any products that contain nicotine or tobacco, such as cigarettes, e-cigarettes, and chewing tobacco. If you need help quitting, ask your health care provider. Do not drink alcohol if: Your health care provider tells you not to drink. You are , may be , or are planning to become . If you drink alcohol: Limit how much you use to: 0 1 drink a day for women. 0 2 drinks a day for men. Be aware of how much alcohol is in your drink. In the [place] one drink equals one 12 oz bottle of beer (355 mL), one 5 oz glass of wine (148 mL), or one 1 oz glass of hard liquor (44 mL). General instructions Take ldui-btk-mzoacjb and prescription medicines only as told by your health care provider. These include vitamins and supplements. Take precautions at home to lower your risk of falling, such as: Keeping rooms well-lit and free of clutter, such as cords. Installing safety rails on stairs. Using rubber mats in the bathroom or other areas that are often wet or slippery. Keep all follow-up visits. This is important. Contact a health care provider if: You have not had a bone density screening for osteoporosis and you are: A woman who is age 65 or older. A man who is age 70 or older. You are a postmenopausal woman who has not had a bone density screening for osteoporosis. You are older than age 50 and you want to know if you should have bone density screening for osteoporosis. Summary Osteopenia is a loss of thickness (density) inside the bones. Another name for osteopenia is low bone mass. Osteopenia is not a disease, but it may increase your risk for a condition that causes the bones to become thin and break more easily (osteoporosis). You may be at risk for osteopenia if you are older than age 50 or if you are a woman who went through early menopause. Osteopenia does not cause any symptoms, but it can be diagnosed with a bone density screening test. Dietary and lifestyle changes are the first treatment for osteopenia. These may lower your risk for osteoporosis. This information is not intended to replace advice given to you by your health care provider. Make sure you discuss any questions you have with your health care provider. Document Revised: 11/30/2020 Document Reviewed: 11/30/2020 [employer] Patient Education 2023 [employer]. Extracted from:Title: 0055C Clinic - Sinusitis/osteopenia Author: ROBBIE HECTOR MD Date: 02/26/24 1. S inusitis She reports that she was recently diagnosed with sinusitis at urgent care and started on antibiotics (clinda) w ithout resolution of her sxms. She has also had worsening rhinitis sxms in general since being switched from Dupixent to Nucala. There was concern that Dupixent was raising her eosinophil count, but Nucala did not work. She is back on Dupixent but just started. Sinusitis. Difficult to determine if this is incompletely treated sinusitis vs worsening of chronic sinusitis sxms. Discussed the risks and benefits of antibiotics. - Switch to doxycycline - Start Flonase and Astelin for treatment of underlying rhinitis - Continue with coffee grower 2. O ther specified counseling Recent bnoe scan showed osteopenia as well as incidental diverticulosis. Discussed the underlying pathophysiology, and educated on treatment options. Agree with plan to replace vitamin D and repeat bone scan. Educated on diverticulosis. 3. O steopenia 4. D iverticulosis of colon Patient encouraged to return to clinic, present to C or ER for persistent worsening or development of other concerning symptoms. Patient cites understanding and agrees with plan of care. A total of 40 minutes was spent on this visit reviewing previous notes, counseling the patient on the listed diagnoses, reviewing/ordering tests, adjusting medications, and documenting the findings in this note. Robbie Hector MD Capt, [address] [facility], [facility] Internal Medicine Staff Physician Extracted from:Title: 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/WWE, pap Author: LACIE MARINO NP Date: 01/13/24 1. E ncounter for gynecological examination (general) (routine) with abnormal findings Over 50% of m inute visit spent face to face with patient on education, reviewing history, and developing plan of care. Continue monthly BSE and yearly well woman exams. Return to clinic in 1 year. Exercise: 30 minutes of moderate exercise 5 days a week including cardio and strength training is recommended for a healthy lifestyle. T his should be in addition to your normal daily work/routine. If you are trying to lose weight more exercise along with a healthy diet is recommended. Supplements/Vitamins: If you are not following, or able to follow a well-balanced diet indicated below due to personal or medical reasons, it is recommended you take a m ultivitamin. This is especially important if you are trying to get as w omen need additional folic acid before and during (400-1000 micrograms per day). Daily calcium intake should be around 1200 mg per day w hich is 120% of the recommended daily allowance if looking at food labels.? W e recommend V itamin D3 2,000-3,000 international units a day i f you have not already been identified with an insufficiency or deficiency. Nutrition: A healthy diet with protein, vegetables, fruits, grains, and dairy is advised. More information including example serving sizes can be found at h ttps://www.choosemyplate.gov/.&# 160; T hese amounts are appropriate for individuals who get less than 30 minutes per day of moderate physical activity, beyond normal daily activities. Those who are more physically active may be able to consume more while staying within calorie needs. Ordered: Lipid Panel 2. E ncounter for screening for malignant neoplasm of cervix co test 5yrs if neg Ordered: AP Cytology 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 HPV High Risk (16/18/Other) 3. O ther disorders of thyroid due for annual US Ordered: US Thyroid 4. A ge related osteopenia stressed ca, vit D, wt bearing exercise Ordered: Vitamin D [address] Bone Density Axial Skeleton 5. 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 A typical squamous cells of undetermined significance on cytologic smear of cervix (ASC-US) can return to routine screening if neg 7. O besity, unspecified increase exercise, decrease calories to decrease wt/BMI; advised healthy lifestyle, namely whole food plant based diet w/ regular exercise. Advise nutrition hannah/diary to track energy intake vs expenditure f/u prn PVUA. 8. B LA 33.0 to 33.9 Pt questions addressed and written discharge instructions were provided to the patient. Lacie Marino [facility] Extracted from:Title: 0055C Clinic - Dry mouth Author: ROBBIE HECTOR MD Date: 12/01/23 1. D ry mouth She reports one mouth of an enlarged tongue and dry mouth leading to mild dysarthria. This is obvious on exam. Sxms have persisted but have not worsened s andreina early July. S he also reports dry eyes. There are no other associated sxms. Lab workup, including CBC, RFP, UA, ESR, ANGELA, and anti-Ro/anti-La are only notable for elevated absolute eosinophil count to 1200. This is stable to about where it has been for close to 20 years. There are no systemic sxms to suggest an primary eosinophilic process. There are no medications that would explain her sxms. Despite the negative labs, primary Sjogren's seems to be the most likely diagnosis given the persistence for m ore than 3 months. - Refer to rheumatology for clarification of the diagnosis and further management - Continue with salivary stimulants Ordered: Referral Request 2.0 - DoD 2. M acroglossia Likely due to dry mouth Ordered: Referral Request 2.0 - DoD Patient encouraged to return to clinic, present to UCC or ER for persistent worsening or development of other concerning symptoms. Patient cites understanding and agrees with plan of care. A total of 25 minutes was spent on this visit reviewing previous notes, counseling the patient on the listed diagnoses, reviewing/ordering tests, adjusting medications, and documenting the findings in this note. Robbie Hector MD Capt, [address] [facility], [facility] Internal Medicine Staff Physician Extracted from:Title: 0055 IMCL Virtual Macroglossia Author: SWAPNIL RHOADES DO Date: 10/03/23 Macroglossia Patient is a 58 year old female with history of HTN, HLD, asthma, and nicotine dependence presenting virtually for persistent macroglossia symptoms. Patient notes that there has been improvement in her pain and the swelling sensation since restarting her dupixent. Currently no new complaints. Exam deferred 2/2 virtual encounter. At this time, advised patient that monitoring symptoms given improvement is likely the best course of action. Etiology not fully clear, but may be related to dupixent withdrawing. As noted previously on my exams, no obvious tongue swelling noted. Salivary pooling noted on most recent exam. Labwork discussed in this encounter, negative for any findings consistent with autoimmune conditions. Eosinophilia chronic as noted. As noted in previous encounter, if symptoms were to progress and worsen rather than improve, may consider work up for infiltrative dz (Amyloid/Sarcoid). Patient encouraged to return to clinic, present to UCC or ER for persistent worsening or development of other concerning symptoms. Patient cites understanding and agrees with plan of care. A total of 30 minutes was spent on this visit reviewing previous notes, counseling the patient on the listed diagnoses, reviewing/ordering tests, adjusting medications, and documenting the findings in this note. Pati Rhoades DO, [facility] Internal Medicine, [place] [employer] Extracted from:Title: 0055C IM Clinic - Dry mouth Author: ROBBIE HECTOR MD Date: 09/17/23 1. D ry mouth She reports one mouth of an enlarged tongue and dry mouth leading to mild dysarthria. Sxms have persisted but have not worsened during this time. There are no associated sxms. Lab workup, including CBC, RFP, UA, ESR, ANGELA, and anti-Ro/anti-La are only notable for elevated absolute eosinophil count to 1200. This is stable to about where it has been for close to 20 years. Overall, there is a dry mouth, but no appreciable macroglossia and no tongue indentations. There are no systemic sxms to suggest an primary eosinophilic process. With her hxy, I think atopy is the underlying cause of the elevations. - Recommended continued observation and using sugar-free gum to help with the dry mouth - F/u if sxms persist or change - If macroglossia progresses, can consider workup for sarcoidosis or amyloidosis 2. M acroglossia See above Patient encouraged to return to clinic, present to [facility] [place] for persistent worsening or development of other concerning symptoms. Patient cites understanding and agrees with plan of care. A total of 30 minutes was spent on this visit reviewing previous notes, counseling the patient on the listed diagnoses, reviewing/ordering tests, adjusting medications, and documenting the findings in this note. Robbie Hector MD [facility], [facility] Internal Medicine Staff Physician Extracted from:Title: 0055 IMCL Tongue Swelling and Dry mouth Author: SWAPNIL RHOADES DO Date: 09/10/23 1. T ongue swelling 2. A phthous ulcer 3. I tchy eye Patient presenting with 3 weeks of the sensation that her tongue is swelling, her mouth is dry, and painful ulceration on tongue. Notes associated itchy eyes. Denies any inciting factor. No new medications. Associated eye itching. Exam remarkable for no obvious candidal plaques, tongue does not seem grossly enlarged. Salivary pooling noted. Aphthous ulcer noted on r ight tongue. No gingival disease noted. Etiology of symptoms unclear at this time, no new medications, clinically, patient's symptoms align with possible development of sjrogen's syndrome, but no obvious parotid enlargement or eye physical exam findings. At this time, will treat with benzocaine to assist with pain, and place lab work for broad autoimmune work up to include sjrogens. Plan to follow up on results. Patient encouraged to return to clinic, present to UC or ER for persistent worsening or development of other concerning symptoms. Patient cites understanding and agrees with plan of care. A total of 40 minutes was spent on this visit reviewing previous notes, counseling the patient on the listed diagnoses, reviewing/ordering tests, adjusting medications, and documenting the findings in this note. Orders: *Differential Automated *Glomerular Filtration Rate, Estimated CBC w/ Diff ESR [employer] Miscellaneous Manual LC Renal Function Panel Urinalysis with Microscopic and Culture if Indicated BNish Rhoades DO, [facility] , [facility] Internal Medicine, [place] Extracted from:Title: 0055 IMCL Plantar Fasciitis Author: SWAPNIL RHOADES DO Date: 03/25/23 1. P lantar fasciitis Patient is a 58 year old female with history of HLD presenting today to discuss foot pain for months. Denies any fevers, chills, trauma, skin changes. Pain located prmarily in mid foot region of right foot, plantar surface. Exam notable for mid foot and calcaneal tenderness of right foot. Left foot unremarkable. Pain likely 2/2 plantar fasciitis, less likely skin pathology vs bony abnormality. Discussed conservative treatment to include shoe inserts for proper arch support and utilizing roller for point stretching of plantar fascia. Patient encouraged to return to clinic, present to UCC or ER for persistent worsening or development of other concerning symptoms. Patient cites understanding and agrees with plan of care. A total of 40 minutes was spent on this visit reviewing previous notes, counseling the patient on the listed diagnoses, reviewing/ordering tests, adjusting medications, and documenting the findings in this note. 2. O besity 3. B LA 30+ - obesity Patient also notes concerns about her wt. Discussed diet and exercise to benefit wt. Specifically recommended Mediterranean, low carb, and whole food plant based diet. Discussed ACC/AHA recommendations for exercise (150 min/wk). offered referral to nutrition, but paitent politely declines. Encouraged 6 month trial of diet and exercise regimen. Patient cites understanding and agrees. Pati Rhoades DO, [facility], , [facility] Internal Medicine, [employer] Future Scheduled TestsLaboratoryVitamin D 25 Hydroxy Level 04/12/24Lipid Panel 04/12/24 01/09/2025 Unknown Organization Functional Status Combined list of recent functional and cognitive assessments recorded at [facility] Functional Sharon Measurement (FIM) Scale: 1 = Total Assistance (Subject = 0% +), 2 = Maximal Assistance (Subject = 25% +), 3 = Moderate Assistance (Subject = 50% +), 4 = Minimal Assistance (Subject = 75% +), 5 = Supervision, 6 = Modified Sharon (Device), 7 = Complete Sharon (Timely, Safely). Assessment Date/Time Source Assessment Type Assessment Skill Assessment Score Assessment Details No data available for this section
--- OUTSIDE RECORDS SUMMARY | 2025-01-08 19:39 | XMS_ITS | Patient Health Record ---
Author Organization [facility] [place] ([address]) Address [address] [place] [address] Care Team Providers Care Area Safety Manager Name Role Phone Junior Rhoades Primary Care Provider Unavailramona e Molly Blackwell Unavailable [phone] Lala Pacheco Unavailable Unavailable Allergies Allergen (clinical drug ingredient) Drug/Non Drug Allergy documented on EMR Reaction Allergy Type Onset Date Status ampicillin Ampicillin rash Drug Allergy Activ e Results Component Value Reference Range Notes -CBC With Differential/Plate let Reviewed date:02/25/2024 12:25:04 PM Interpretation:Normal Performing Lab:[facility], [address] [place] [id number], Phone - [phone], Director - Janet Notes/Report: WBC 8.2 3.4-10.8 x10E3/uL RBC 4.82 3.77-5.28 x10E6/uL Hemoglobin 13.5 11.1-15.9 g/dL Hematocrit 42.2 34.0-46.6 % MCV 88 79-97 fL MCH 28.0 26.6-33.0 pg MCHC 32.0 31.5-35.7 g/dL RDW 12.9 11.7-15.4 % Platelets 311 150-450 x10E3/uL Neutrophils 42 Not Estab. % Lymphs 46 Not Estab. % Monocytes 9 Not Estab. % Eos 2 Not Estab. % Basos 1 Not Estab. % Neutrophils (Absolute) 3.4 1.4-7.0 x10E3/uL Lymphs (Absolute) 3.9 0.7-3.1 x10E3/uL Monocytes(Absolute) 0.7 0.1-0.9 x10E3/uL Eos (Absolute) 0.1 0.0-0.4 x10E3/uL Baso (Absolute) 0.1 0.0-0.2 x10E3/uL Immature Granulocytes 0 Not Estab. % Immature Grans (Abs) 0.0 0.0-0.1 x10E3/uL Reason For Referral Reason [id number] Referring Provider First Name Junior Referring Provider Last Name Verona Referred Organization [facility] Referred Provider Molly Blackwell Referred Address [address],[place], [place],[address],[place] Referred Provider Specialty Allergy/Immu nology Referral Priority Routine Medications Medication SIG (Take, Route, Frequency, Duration) Notes Start Date End Date Status Vitamin D3 50 MCG 1 TAB(S) ORALLY ONCE A DAY; Duration: 30 DAY(S) *Please review and pick correct strength-formulat ion from [facility] options. If intended option is not shown, discontinue and re-order from Quick Search* Active Daliresp 250 MCG 1 tab(s) orally once a day; Duration: 28 day(s) Not-Taking Fish Oil 500 MG 1 cap(s) orally once a day Active Vraylar 1.5 MG 1 cap(s) orally once a day Not-Taking Albuterol Sulfate HFA 108 (90 Base) MCG/ACT 2 puffs as needed Inhalation every 4 hrs; Duration: 30 days Active Albuterol Sulfate HFA 108 (90 Base) MCG/ACT 1 puff as needed Inhalation every 4 hrs Active DALIRESP 250 mcg 1 tab(s) orally once a day; Duration: 28 day(s) Not-Taking VRAYLAR 1.5 mg 1 cap(s) orally once a day Not-Taking NASACORT Active lamoTRIgine 25 MG 1 tablet Orally Active NUCALA 100 mg as directed subcutaneously every 4 weeks; Duration: 4 week(s) Not-Taking Trelegy Ellipta 200-62.5-25 MCG/ACT 1 puff Inhalation Once a day; Duration: 30 days Active Dupixent 300 MG/2ML inject 1 syringe (300 mg) under the skin every 2 weeks as directed; Duration: 30 days 03/25/2024 Active CeleXA 40 MG 1 tab(s) orally once a day Active Lipitor 20 MG 1 tab(s) orally once a day; Duration: 30 day(s) Active DUPIXENT PRE-FILLED SYRINGE 300 MG/2 ML INJECT 300 MG (1 SYRINGE) UNDER THE SKIN EVERY 2 WEEKS DIRECTED *Please review for potential replacement for e-prescription and drug interaction check* Not-Taking NUCALA PREFILLED SYRINGE 100 MG/ML INJECT, DIRECTED, SUBCUTANEOUSLY EVERY 4 WEEKS; Duration: 365 DAYS *Please review for potential replacement for e-prescription and drug interaction check* 11/03/2023 Not-Taking Nucala 100 MG DIRECTED SUBCUTANEOUSLY EVERY 4 WEEKS; Duration: 4 WEEK(S) *Please review and pick correct strength-formulat ion from [facility] options. If intended option is not shown, discontinue and re-order from Quick Search* Not-Taking Immunizations Vaccine Route Administration Date Status Comme nts COVID-19 (Moderna) Unknown 06/07/2021 Administered Flucelvax Unknown 03/16/2019 Administered Fluzone, quadrivalent, preservative free Unknown 05/03/2021 Administered NOC Flucelevax Quadrivalent IM Intramuscular 04/12/2020 Administered NOC Flucelevax Quadrivalent Unknown 04/12/2020 Refused Pneumovax 23 IM Intramuscular 01/10/2020 Administered Social History Tobacco Use: Social History Observation Description Date Details (start date - stop date) Former Smoker NA - NA Sex Assigned At : Social History Observation Description Sex Assigned At Female Tobacco Control (Standard) Question Answer Notes Tobacco use: Former smoker Problems Problem Type SNOMED Code ICD Code Onset Dates Problem Status W/U Status Risk Notes Problem Nonfamilial 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) Active confirmed Problem Chronic allergic conjunctivitis (69830216) Other chronic allergic conjunctivitis (H10.45) Active confirmed Problem Allergic rhinitis caused by pollen (disorder) (81851857) Allergic rhinitis due to pollen (J30.1) Active confirmed Problem Allergic rhinitis (56061825) Other allergic rhinitis (J30.89) Active confirmed Problem Chronic sinusitis (80637286) Chronic sinusitis, unspecified (J32.9) Active confirmed Problem Polyp of nasal cavity (disorder) (801542355) Nasal polyp, unspecified (J33.9) Active confirmed Problem Chronic obstructive pulmonary disease (28053918) Chronic obstructive pulmonary disease, unspecified (J44.9) Active confirmed Problem Uncomplicated severe persistent asthma (779757402) Severe persistent asthma, uncomplicated (J45.50) Active confirmed Problem Pulmonary eosinophilia (886773720) Pulmonary eosinophilia, not elsewhere classified (J82) Active confirmed Problem Allergic rhinitis caused by animal hair and dander (036915076115050 ) Allergic rhinitis due to animal (cat) (dog) hair and dander (J30.81) Active confirmed Vital Signs Blood pressure diastolic 80 mm Hg 04/27/2024 Oximetry 97 % 04/27/2024 Height 66 in 04/27/2024 Blood pressure systolic 137 mm Hg 04/27/2024 Weight 214.0 lbs 04/27/2024 BMI 34.54 kg/m2 04/27/2024 Encounters Encounter Location Date Provider Diagnosis [facility] [address] [address] 06/16/2024 Molly Blackwell Chronic sinusitis, unspecified J32.9 ; Chronic obstructive pulmonary disease, unspecified J44.9 ; Nonfamilial hypogammaglobulinemia D80.1 ; Nasal polyp, unspecified J33.9 ; Severe persistent asthma, uncomplicated J45.50 ; Allergic rhinitis due to pollen J30.1 ; Other pulmonary eosinophilia, not elsewhere classified J82.89 ; Allergic rhinitis due to animal (cat) (dog) hair and dander J30.81 ; Other allergic rhinitis J30.89 and Other chronic allergic conjunctivitis H10.45 [facility] [address] [place] [phone] 02/24/2024 Molly Blackwell Chronic sinusitis, unspecified J32.9 ; Chronic obstructive pulmonary disease, unspecified J44.9 ; Nonfamilial hypogammaglobulinemia D80.1 ; Nasal polyp, unspecified J33.9 ; Severe persistent asthma, uncomplicated J45.50 ; Allergic rhinitis due to pollen J30.1 ; Other pulmonary eosinophilia, not elsewhere classified J82.89 ; Allergic rhinitis due to animal (cat) (dog) hair and dander J30.81 ; Other allergic rhinitis J30.89 and Other chronic allergic conjunctivitis H10.45 [facility] [address] [address] 04/27/2024 Molly Blackwell Chronic sinusitis, unspecified J32.9 ; Chronic obstructive pulmonary disease, unspecified J44.9 ; Nonfamilial hypogammaglobulinemia D80.1 ; Nasal polyp, unspecified J33.9 ; Severe persistent asthma, uncomplicated J45.50 ; Allergic rhinitis due to pollen J30.1 ; Other pulmonary eosinophilia, not elsewhere classified J82.89 ; Allergic rhinitis due to animal (cat) (dog) hair and dander J30.81 ; Other allergic rhinitis J30.89 and Other chronic allergic conjunctivitis H10.45 [facility] [place] [address] [place] [address] 03/30/2024 Molly Blackwell Chronic obstructive pulmonary disease, unspecified J44.9 [facility] [place] [address] [place] [address] 11/02/2024 Molly Blackwell [facility] [place] [address] [place] [address] 11/09/[address] [facility] [place] [address] [place] [address] 12/15/2024 Molly Blackwell Chronic obstructive pulmonary disease, unspecified J44.9 [facility] - [place] [address] [place] [address] 03/22/2024 [facility] [address] [place] [address] 03/25/2024 Molly Blackwell Assessments Encounter Date Diagnosis (ICD Code) Assessment Notes Treatment Notes Treatment Clinical Notes Section Notes 02/24/2024 Chronic sinusitis, unspecified (ICD-10 - J32.9) Marizol has chronic sinusitis with nasal polyps, s/p sinus surgery x2 and no improvement with Flonase, budesonide respules or allergen immunotherapy. Much improvement in anosmia and sinusitis with Dupixent. Due to recent tongue swelling, we stopped Dupixent and switched to Nucala. After 3 months of Nucala, asthma has been flaring, developed anosmia and sinusitis. No change in tongue swelling. Plan to return to Dupixent. Sample given today 02/24/2024 Chronic obstructive pulmonary disease, unspecified (ICD-10 - J44.9) 03/30/2024 Chronic obstructive pulmonary disease, unspecified (ICD-10 - J44.9) 04/27/2024 Chronic sinusitis, unspecified (ICD-10 - J32.9) Marizol has chronic sinusitis with nasal polyps, s/p sinus surgery x2 and no improvement with Flonase, budesonide respules or allergen immunotherapy. Much improvement in anosmia and sinusitis with Dupixent. Due to recent tongue swelling, we stopped Dupixent and switched to Nucala. After 3 months of Nucala, asthma started flaring, developed anosmia and sinusitis. No change in tongue swelling. She restarted Dupixent with much improvement in above symptoms. 04/27/2024 Chronic obstructive pulmonary disease, unspecified (ICD-10 - J44.9) 06/16/2024 Chronic sinusitis, unspecified (ICD-10 - J32.9) Marizol has chronic sinusitis with nasal polyps, s/p sinus surgery x2 and no improvement with Flonase, budesonide respules or allergen immunotherapy. Much improvement in anosmia and sinusitis with Dupixent. Due to recent tongue swelling, we stopped Dupixent and switched to Nucala. After 3 months of Nucala, asthma started flaring, developed anosmia and sinusitis. No change in tongue swelling. She restarted Dupixent with much improvement in above symptoms. 06/16/2024 Chronic obstructive pulmonary disease, unspecified (ICD-10 - J44.9) 12/15/2024 Chronic obstructive pulmonary disease, unspecified (ICD-10 - J44.9) 06/16/2024 Nonfamilial hypogammaglobulinemia (ICD-10 - D80.1) CVID diagnosed by Dr. Haney many years ago, but never received IVIG. Labs showed IgG 835, IgA 121, IgM 129, IgE 63, elevated NK cells. Normal tetanus and HIB titers. S. Pneumo reduced. She has received Pneumovax and titers now normal. She does not meet criteria for CVID 04/27/2024 Nonfamilial hypogammaglobulinemia (ICD-10 - D80.1) CVID diagnosed by Dr. Haney many years ago, but never received IVIG. Labs showed IgG 835, IgA 121, IgM 129, IgE 63, elevated NK cells. Normal tetanus and HIB titers. S. Pneumo reduced. She has received Pneumovax and titers now normal. She does not meet criteria for CVID 02/24/2024 Nonfamilial hypogammaglobulinemia (ICD-10 - D80.1) CVID diagnosed by Dr. Haney many years ago, but never received IVIG. Labs showed IgG 835, IgA 121, IgM 129, IgE 63, elevated NK cells. Normal tetanus and HIB titers. S. Pneumo reduced. She has received Pneumovax and titers now normal. She does not meet criteria for CVID 02/24/2024 Nasal polyp, unspeci fied (ICD-10 - J33.9) plan as above 04/27/2024 Nasal polyp, unspeci fied (ICD-10 - J33.9) plan as above 06/16/2024 Nasal polyp, unspeci fied (ICD-10 - J33.9) plan as above 06/16/2024 Severe persistent asthma, uncomplicated (ICD-10 - J45.50) COPD/severe asthma. Following with Dr. Mccallum. She restarted Trelegy when asthma flared while on Nucala. She would now like to stop Trelegy. Plan to stop Trelegy and f/u in 1 month for spirometry 04/27/2024 Severe persistent asthma, uncomplicated (ICD-10 - J45.50) COPD/severe asthma. Following with Dr. Mccallum. She restarted Trelegy when asthma flared while on Nucala. She would now like to stop Trelegy. Plan to stop Trelegy and f/u in 1 month for spirometry 02/24/2024 Severe persistent asthma, uncomplicated (ICD-10 - J45.50) COPD/severe asthma. Following with Dr. Mccallum. Per her report, eosinophil count improved on repeat by PCP and does not need hematology consult. Off daily inhalers with Dupixent. Due to recent asthma symptoms, start Trelegy and prn albuterol. Restart Dupixent since did not require inhalers. 02/24/2024 Allergic rhinitis du e to pollen (ICD-10 - J30.1) Marizol clearly suffers from atopic disease based upon our skin testing. Accordingly, we have introduced a new, aggressive medication regimen, discussed nasal washes and allergy-specific avoidance measures. We also discussed adjunctive therapies including subcutaneous, specific allergen immunotherapy as relates to the treatment and prevention of atopic disease. She received immunotherapy in the past without improvement. 04/27/2024 Allergic rhinitis du e to pollen (ICD-10 - J30.1) Marizol clearly suffers from atopic disease based upon our skin testing. Accordingly, we have introduced a new, aggressive medication regimen, discussed nasal washes and allergy-specific avoidance measures. We also discussed adjunctive therapies including subcutaneous, specific allergen immunotherapy as relates to the treatment and prevention of atopic disease. She received immunotherapy in the past without improvement. 06/16/2024 Allergic rhinitis du e to pollen (ICD-10 - J30.1) Marizol clearly suffers from atopic disease based upon our skin testing. Accordingly, we have introduced a new, aggressive medication regimen, discussed nasal washes and allergy-specific avoidance measures. We also discussed adjunctive therapies including subcutaneous, specific allergen immunotherapy as relates to the treatment and prevention of atopic disease. She received immunotherapy in the past without improvement. 06/16/2024 Other pulmonary eosinophilia, not elsewhere classified (ICD-10 - J82.89) 02/24/2024 Other pulmonary eosinophilia, not elsewhere classified (ICD-10 - J82.89) 04/27/2024 Other pulmonary eosinophilia, not elsewhere classified (ICD-10 - J82.89) 02/24/2024 Allergic rhinitis du e to animal (cat) (dog) hair and dander (ICD-10 - J30.81) 04/27/2024 Allergic rhinitis du e to animal (cat) (dog) hair and dander (ICD-10 - J30.81) 06/16/2024 Allergic rhinitis du e to animal (cat) (dog) hair and dander (ICD-10 - J30.81) 04/27/2024 Other allergic rhini tis (ICD-10 - J30.89) 06/16/2024 Other allergic rhini tis (ICD-10 - J30.89) 02/24/2024 Other allergic rhini tis (ICD-10 - J30.89) 02/24/2024 Other chronic allerg ic conjunctivitis (ICD-10 - H10.45) Given ocular signs and symptoms I encouraged allergy avoidance measures and meds as above. If symptoms persist, consider adding additional medications including intraocular antihistamine/ma st cell stabilizer, PRN 06/16/2024 Other chronic allerg ic conjunctivitis (ICD-10 - H10.45) Given ocular signs and symptoms I encouraged allergy avoidance measures and meds as above. If symptoms persist, consider adding additional medications including intraocular antihistamine/ma st cell stabilizer, PRN 04/27/2024 Other chronic allerg ic conjunctivitis (ICD-10 - H10.45) Given ocular signs and symptoms I encouraged allergy avoidance measures and meds as above. If symptoms persist, consider adding additional medications including intraocular antihistamine/ma st cell stabilizer, PRN 06/16/2024 Other 02/24/2024 Other 04/27/2024 Other Plan Of Treatment Pending Test Test Name Order Date -CBC With Differential/Platelet 12/15/19 20 -Pneumococcal Ab (23 Serotype) 0 Next Appt Details Provider Name:Molly kamara, 01/10/2025 01:00:00 PM, [address] [place], [address], Insurance Providers Payer Name Payer Address Payer Phone Subscriber Number Group Number Insured Name Patient Relationship to Insured Coverage Start Date Coverage End Date [facility] [address] [place] [phone] [id number] Terrence Subramanian Spouse - patient is the spouse of the insured Medical (General) History Medical History History ICD Code Chronic obstructive pulmonary disease, u nspecified J44.9 Other seasonal allergic rhinitis J30.2 Polyp of nasal cavity J33.0 Surgical History Surgery Date(Month/Year) Tonsillectomy 07/31/1971 Bladder Suspension 07/31/2000 Bladder Suspension 07/31/2003 Breast Reduction 07/31/2007 Sinus Surgery [facility] 07/31/19 09 Sinus Surgery [facility] 07/31/2013 Hospitalization History Reason Date(Month/Year) Flu/Pneumonia 08/16/2015
[2025-01-08 19:40] VITALS: BP 145/84; PULSE 80; RESP 20; TEMP 36.3; O2SAT 97
--- OUTSIDE RECORDS SUMMARY | 2025-01-08 19:40 | XMS_ITS | Clinical Summary ---
Author Organization [facility] at the [facility] Address [address] [place] [address] Care Team Providers Care Reimbursement Representative Name Role Phone Allan Hector MD Primary Care Provi nichelle Abraham Gao MD Unavailable [phone] Allergies Active Allergy Reactions Criticality Noted Date Comments Ampicillin Rash Medium Medications citalopram (CeleXA) 40 mg tablet 9 Active albuterol HFA (PROAIR HFA) 90 mcg/actuation inhaler every 6 (six) hours Active budesonide (PULMICORT) 0.5 mg/2 mL nebulizer solution 3 9 Active ibuprofen (ibuprofen) 200 mg tab/cap Take by mouth every 6 (six) hours as needed for pain Active budesonide-form oteroL (SYMBICORT) 160-4.5 mcg/actuation inhaler USE 2 INHALATIONS TWICE A DAY. RINSE MOUTH WITH WATER AFTER USE. DO NOT SWALLOW 1 Inhaler 3 0 Active atorvastatin (LIPITOR) 20 mg tablet 1 Active lidocaine viscous (XYLOCAINE) 2 % solutionIndicat ions:Mouth Irritation Apply 10 mL to the mouth or throat every 4 (four) hours as needed (pain / irritation) 100 mL 4 Active mepolizumab (Nucala) 100 mg recon soln Inject 1 mL (100 mg total) under the skin 4 Active Active Problems Problem Noted Date Diagnosed Date Osteopenia of multiple sites 01/26/2024 Assessment & Plan (01/26/2024 9:15 AM CDT): Had recent DEXA displaying concerns for osteopenia, per her report, although not available for review. Will track down these results from PCP. Recommended calcium and vitamin-D supplementation at this time. CMC arthritis 01/26/2024 Assessment & Plan (01/26/2024 9:16 AM CDT): Right CMC oa. As discussed above, recommended CMC brace. Consider intra- articular injection if symptoms persist or worsen. Continue ibuprofen and Tylenol p.r.n.. Sicca 01/12/2024 Overview (01/26/2024): Labs 01/12/2024: CBC/CMP WNL; CRP/ESR WNL; Avise 01/13/2024: Anti SSB 7.6 equivocal, beta 2 glycoprotein IgM positive, TPO positive Right hand x-ray 01/20/2024: Moderate to severe 1st CMC oa. Mild D IP OA of the 2nd through 5th fingers and IP joint of the thumb. Moderate of the 1st MCP joint. Mild triscaphe joint OA Bilateral feet x-ray 01/20/2024: Moderate size calcaneal spur on the right. Talar beaking on the right which can be seen with tarsal coalition. Bilateral dorsal midfoot OA. US right foot/ankle 01/20/24: Marked spurring of the navicular cuneiform with grade 2 effusion Moderate spurring of the cuneiform metatarsal Grade 1 tendon sheath effusion of the posterior tibialis tendon Grade 2 effusion of the 1st MTPJ Mild spurring of the 2nd MTPJ Enlargement of the plantar fascia to 0.61 cm Hypo-echoic nodules likely representing small cysts over the plantar 2nd and 3rd MTP joints Assessment & Plan (01/26/2024 9:15 AM CDT): Marizol is a pleasant 58 yoF presenting with a 6 month history of subjective tongue/cheek swelling and significant dry mouth>>dry eyes. No parotid/submandibular gland swelling noted. Labs in August of this year revealed neg eugenio, neg ssa/ssb and crp/esr wnl. Has also noted chronic discomfort in the lawrence mid-feet with inflammatory symptoms and pain in the R hand middle finger (mcp>pip joint) with non- inflammatory symptoms. No other joint complaints. No other systemic complaints. Given burning tongue symptoms, we did trial xylocaine 2% solution 10 ml q4 hours prn at last visit. Denies significant benefit with this. Labs 01/12/2024 displayed a equivocal SSB antibody with TPO positive and positive beta 2 glycoprotein along with CRP/ESR WNL. Right hand x-ray displayed moderate to severe 1st CMC OA with OA of the 1st MCP, triscaphe joint, and D IP joints. Right calcaneal spurring and bilateral dorsal midfoot OA was noted on bilateral feet x-rays. Right foot/ankle ultrasound displayed few effusions with burying of the 2nd MTP joint and enlargement of the plantar fascia, as above. At this time, do not see enough evidence to suggest an underlying autoimmune disease, including Sjogren's syndrome. Nonetheless, given her significant dry eyes/dry mouth, discussed treatment with pilocarpine although advised first discussed with pulmonology given her asthma history. 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 Would reconsider pilocarpine in the future if symptoms worsen. Otherwise, recommended further evaluation with ENT given her concerns regarding tongue/cheek swelling along with sicca symptoms. Will have her follow up as needed or if any new symptoms arise. Will track down chest x-ray results, which were not sent to our office after last visit. Seen with Dr. Gao. Assessment & Plan (01/12/2024 12:53 PM CDT): Marizol is a pleasant 58 yoF presenting with a 6 month history of subjective tongue/cheek swelling and significant dry mouth>>dry eyes. No parotid/submandibular gland swelling noted. Labs in August of this year revealed neg eugenio, neg ssa/ssb and crp/esr wnl. Has also noted chronic discomfort in the lawrence mid-feet with inflammatory symptoms and pain in the R hand middle finger (mcp>pip joint) with non- inflammatory symptoms. No other joint complaints. No other systemic complaints. Given burning tongue symptoms, will trial xylocaine 2% solution 10 ml q4 hours prn. Could consider pilocarpine, although advised to first discuss with pulmonology given her asthma history. Will evaluate further with appropriate serologies, radiographs, and R hand/wrist US. Fu 2 weeks. Sooner if needed. Seen with Dr. Gao. 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 19 Nicotine dependence, uncomplicated 07/21/2018 JENNIFER (obstructive sleep apnea) 07/21/2018 Post-nasal drainage 07/21/2018 Facial pain 09/26/2014 Numbness of face 09/26/2014 Chronic frontal sinusitis 11/02/2010 Chronic infection of sinus 11/02/2010 Polyp of paranasal sinus 08/10/2010 Loss of sense of smell 08/10/2010 Chronic obstructive pulmonary disease Immunizations Immunization Administration Dates Next Due Flucelvax Influenza Quad 04/01/2016 Influenza, Quadrivalent, Spl it, Preservative Free, Intramuscular 05/03/2021 Surgical History Surgery Date Site/Laterality Comments BLADDER SURGERY COMBINED REDUCTION MAMMAPLASTY W/ ABDOMINOPLASTY NOSE SURGERY BRONCHOSCOPY Medical History Medical History Date Comments Asthma Sleep apnea Family History Medical History Relation Name Comments Parkinsonism Father Lung cancer Mother Relation Name Status Comments Father Mother Social History Tobacco Use Types Packs/Day Years Used Date Smoking Tobacco: Former Cigarettes 1 36 1 983 - 2019 Smokeless Tobacco: Never Comments:on and off Alcohol Use Standard Drinks/Week Comments Yes 1 (1 standard drink = 0.6 oz pur e alcohol) 3-4 times a week AUDIT-C Answer Date Recorded Frequency of Alcohol Consumption 4 or more times a week 11/02/2018 Average Number of Drinks 1 or 2 019 Frequency of Binge Drinking Daily or almost navi y 11/02/2018 Comments Unknown Sex and Gender Information Value Date Recorded Sex Assigned at Not on file 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 Gender Identity Female 04/26/2021 8:18 AM CDT Sexual Orientation Not on file Obstetrics History Last Filed Vital Signs Vital Sign Reading Time Taken Comments Blood Pressure 132/82 01/26/2024 8:43 AM CDT Pulse 76 01/26/2024 8:43 AM CDT Temperature 36.6 C (97.8 F) 05/03/2021 1:30 PM CDT Respiratory Rate 18 05/03/2021 1:30 PM CDT Oxygen Saturation 98% 01/26/2024 8:43 AM CDT Inhaled Oxygen Concentration - - Weight 97.4 kg (214 lb 12.8 oz) 01/26/2024 8:43 AM CDT Height 167.6 cm (5' 6) 01/26/2024 8:43 AM CDT Body Mass Index 34.67 01/26/2024 8:43 AM CDT Plan of Treatment Health Maintenance Due Date Last Done Comments Breast Cancer Screening-Mammogram 1966 Cervical Cancer Screening 1966 Colon Cancer Screening-Colonoscopy 1966 Depression Screening 1966 Hepatitis C Screening 1966 Hepatitis B Screening 01/30/1984 Regular Well Visit/Exam 18-64 01/30/1984 Lung Cancer Screening 01/30/2016 Pneumococcal vaccine <65 (2 of 2 - PCV) 07/30/2017 07/30/2016 Zoster Vaccine (2 of 2) 07/25/2023 05/30/2023 Covid-19 Vaccine (5 - 2023-2 5 season) 2024 06/07/2021, 11/18/2020, 09/06/2020, Additional history exists Influenza Vaccine (#1) 2025 , 05/31/2022, 05/03/2021, Additional history exists DTaP/Tdap/Td Vaccine (2 - Td or Tdap) 05/20/2026 05/20/2016, 11/27/1999, 01/01/1990 Insurance CLAIMS CLAIMS PRIME Care Teams Reimbursement Representative Relationship Specialty Start Date End Date Allan Hector MD [address] [facility] [address] [place] [address] PCP - General Internal Medicine 12/10/23 Abraham Gao MD [address] [place] [address] Consulting Physician Rheumatology 12/10/23
--- OUTSIDE RECORDS SUMMARY | 2025-01-08 19:40 | XMS_ITS ---
Author Organization [facility] [place] ([address]) Address [address] [place] [id number] Care Team Providers Care Plug Stitcher Name Role Phone Junior Rhoades Primary Care Provider Molly Varma Unavailable [phone] Lala Pacheco Unavailable Unavailable REASON FOR VISIT Chronic sinusitis with nasal polyps follow-up - much improvement with Dupixent, Chronic eosinophilic pneumonia Medications Medication SIG (Take, Route, Frequency, Duration) Notes Start Date End Date Status Albuterol Sulfate HFA 108 (90 Base) MCG/ACT 2 puffs as needed Inhalation every 4 hrs; Duration: 30 days Active Daliresp 250 MCG 1 tab(s) orally once a day; Duration: 28 day(s) Not-Taking NASACORT Active Trelegy Ellipta 200-62.5-25 MCG/ACT 1 puff Inhalation Once a day; Duration: 30 days Active Vraylar 1.5 MG 1 cap(s) orally once a day Not-Taking DALIRESP 250 mcg 1 tab(s) orally once a day; Duration: 28 day(s) Not-Taking VRAYLAR 1.5 mg 1 cap(s) orally once a day Not-Taking DUPIXENT PRE-FILLED SYRINGE 300 MG/2 ML INJECT 300 MG (1 SYRINGE) UNDER THE SKIN EVERY 2 WEEKS DIRECTED *Please review for potential replacement for e-prescription and drug interaction check* Not-Taking NUCALA PREFILLED SYRINGE 100 MG/ML INJECT, DIRECTED, SUBCUTANEOUSLY EVERY 4 WEEKS; Duration: 365 DAYS *Please review for potential replacement for e-prescription and drug interaction check* 11/03/2023 Not-Taking NUCALA 100 mg as directed subcutaneously every 4 weeks; Duration: 4 week(s) Not-Taking Dupixent 300 MG/2ML inject 1 syringe (300 mg) under the skin every 2 weeks as directed; Duration: 30 days 03/25/2024 Active CeleXA 40 MG 1 tab(s) orally once a day Active Lipitor 20 MG 1 tab(s) orally once a day; Duration: 30 day(s) Active Nucala 100 MG DIRECTED SUBCUTANEOUSLY EVERY 4 WEEKS; Duration: 4 WEEK(S) *Please review and pick correct strength-formulat ion from [employer] options. If intended option is not shown, discontinue and re-order from Quick Search* Not-Taking Vitamin D3 50 MCG 1 TAB(S) ORALLY ONCE A DAY; Duration: 30 DAY(S) *Please review and pick correct strength-formulat ion from [employer] options. If intended option is not shown, discontinue and re-order from Quick Search* Active Fish Oil 500 MG 1 cap(s) orally once a day Active Albuterol Sulfate HFA 108 (90 Base) MCG/ACT 1 puff as needed Inhalation every 4 hrs Active lamoTRIgine 25 MG 1 tablet Orally Active Social History Sex Assigned At : Social History Observation Description Sex Assigned At Female Encounters Encounter Location Date Provider Diagnosis [facility] [address] [address] 06/16/2024 Molly Rosalva Chronic sinusitis, unspecified J32.9 ; Chronic obstructive [...] J30.89 and Other chronic allergic conjunctivitis H10.45 Assessments Encounter Date Diagnosis (ICD Code) Assessment Notes Treatment Notes Treatment Clinical Notes Section Notes 06/16/2024 Chronic sinusitis, unspecified (ICD-10 - J32.9) [...] She does not meet criteria for CVID 06/16/2024 Nasal polyp, unspeci fied (ICD-10 - J33.9) plan as above 06/16/2024 Severe persistent asthma, uncomplicated (ICD-10 - J45.50) COPD/severe asthma. Following with Dr. Mccallum. She restarted Trelegy when asthma flared while on Nucala. She would now like to stop Trelegy. Plan to stop Trelegy and f/u in 1 month for spirometry 06/16/2024 Allergic rhinitis du e to pollen [...] eosinophilia, not elsewhere classified (ICD-10 - J82.89) 06/16/2024 Allergic rhinitis du e to animal (cat) (dog) hair and dander (ICD-10 - J30.81) 06/16/2024 Other allergic rhini tis (ICD-10 - J30.89) 06/16/2024 Other chronic allerg ic conjunctivitis (ICD-10 - H10.45) Given ocular signs and symptoms I encouraged allergy avoidance measures and meds as above. If symptoms persist, consider adding additional medications including intraocular antihistamine/ma st cell stabilizer, PRN 06/16/2024 Other Plan Of Treatment Medication Medication Name Sig Start Date Stop Date Notes Albuterol Sulfate HFA 108 (9 0 Base) MCG/ACT 2 puffs as needed Inhalation every 4 hrs; Duration: 30 days NASACORT Trelegy Ellipta 200-62.5-25 MCG/ACT 1 puff Inhalation Once a day; Duration: 30 days Treatment Notes Assessment Notes Chronic sinusitis, unspecified Marizol morales s chronic sinusitis with nasal polyps, s/p sinus [...] Dupixent with much improvement in above symptoms. 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 Labs showed IgG 835, IgA 121, IgM 129, IgE 63, elevated NK cells. Normal tetanus and HIB titers. S. Pneumo reduced. She has received Pneumovax and titers now normal. She does not meet criteria for CVID Nasal polyp, unspecified plan as above Severe persistent asthma, uncomplicated COPD/severe asthma. Following with Dr. Mccallum. She restarted Trelegy when asthma flared while on Nucala. She would now like to stop Trelegy. Plan to stop Trelegy and f/u in 1 month for spirometry Allergic rhinitis due to pollen Marizol hunter suffers from atopic disease based upon our skin testing. Accordingly, we have introduced a new, aggressive medication regimen, discussed nasal washes and allergy-specific avoidance measures. We also discussed adjunctive therapies including subcutaneous, specific allergen immunotherapy as relates to the treatment and prevention of atopic disease. She received immunotherapy in the past without improvement. Other chronic allergic conjunctivitis Gi randell ocular signs and symptoms I encouraged allergy avoidance measures and meds as above. If symptoms persist, consider adding additional medications including intraocular antihistamine/mast cell stabilizer, PRN Next Appt Details Follow Up: 4 Weeks, Reason: spirometry Provider Name:Molly kamara, 01/10/2025 01:00:00 PM, [address] [place], [address], Progress Notes * Edison SUBRAMANIANOB:[birth year] (59 yo F)Acc No.[id number]:06/16/2024 Progress Notes Patient: Marizol QUINTERO Provider: Liliana Blackwell MD :1965 A ge:59 Y S ex:Female Date:06/16/2024 Address[facility] [place] [id number] Pcp:Junior Rhoades Subjective: * Chief Complaints: * 1 . Chronic sinusitis with nasal polyps follow-up - much improvement with Dupixent. 2. Chronic eosinophilic pneumonia. * HPI: A sthma follow-up: Asthma Survey - Classification A sthma severity classification S evere Persistent * Introduction: HPI: Abhishek Subramanian, a 59 year old with chronic eosinophilic pneumonia, COPD, ARC, and chronic sinusitis with nasal polyps s/p sinus surgery presenting for f/u evaluation chronic sinusitis and asthma.? She was last evaluated 12-02-2023. S he restarted Dupxient and improvement in nasal congestion, eczema and asthma. She has not requierd albuterol since last visit. While on Nucala asthma flared and increase in nasal congestion. She continues to have a swollen tongue. She is planning to be evaluated by ENT. S he was evaluated by Dr. Gao at [facility] and she reports normal evaluation. S he continues to follow with Dr. Mccallum. She quit smoking several years ago. She is no longer taking Symbicort or Lonhala. She follows with Dr. 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 Bronchoscopy performed and bronchial lavage with 26% eosinophils. A t her initial visit, she reported constant congestion and ear fullness along with decreased sense of smell. Polypectomy was performed twice and most recently in [address] Harris at [facility]. First surgery was performed in [address] Nelson. Prior to starting Dupixent required steroids almost on a monthly basis for sinusitis and flares of COPD. She last required steroids . Skin testing was performed over 10 years ago and she receivedSCIT from Dr. Harris's office. No improvement in congestion and rhinorrhea with SCIT. If she drinks beer or wine, develops increase in congestion. She tolerates some beer without event. She tolerates ibuprofen and aspirin without event. She has a 25 pack year smoking history. T ana, she reports no fevers, chills, night sweats or other constitutional symptoms. * ROS: A LLERGY: Positive p er the HPI and history, otherwise unremarkable.? S PECIAL SENSES: Positve for n one. C ONSTITUTIONAL: Positive for n one. E NT: Positive p er the HPI and history, otherwise unremarkable.? R ESPIRATORY: Positive p er the HPI and history, otherwise unremakable.? O PHTHALMOLOGY: Positive for p er the HPI and history, otherwise unremarkable. E NDOCRINOLOGY: Positive for n one. C ARDIOLOGY: Positive for n one. G ASTROENTEROLOGY: Positive for n one. U ROLOGY: Positive for n one. D ERMATOLOGY: Positive for p er the HPI and history, otherwise unremakable. N EUROLOGY: Positive for n one. H EMATOLOGY/LYMPH: Positive for n one. M USCULOSKELETAL: Positive for n one. P SYCHOLOGY: Positive for n one. A ll other review of systems per the HPI and history, otherwise unremarkable. * Medical History: * Medications: T aking NASACORT , Taking Trelegy Ellipta 200-62.5-25 MCG/ACT Aerosol Powder Breath Activated 1 puff Inhalation Once a day , Taking lamoTRIgine 25 MG Tablet 1 tablet Orally , Taking Albuterol Sulfate HFA 108 (90 Base) MCG/ACT Aerosol Solution 1 puff as needed Inhalation every 4 hrs , Taking Fish Oil 500 MG Capsule 1 cap(s) orally once a day , Taking Vitamin D3 50 MCG TABLET 1 TAB(S) ORALLY ONCE A DAY , Notes to Pharmacist: *Please review and pick correct strength-formulation from [employer] options. If intended option is not shown, discontinue and re-order from Quick Search*, Taking Lipitor 20 MG Tablet 1 tab(s) orally once a day , Taking CeleXA 40 MG Tablet 1 tab(s) orally once a day , Taking Dupixent 300 MG/2ML Solution Prefilled Syringe inject 1 syringe (300 mg) under the skin every 2 weeks as directed , Not-Taking/PRN NUCALA 100 mg powder for injection as directed subcutaneously every 4 weeks , Not-Taking/PRN Nucala 100 MG POWDER FOR INJECTION DIRECTED SUBCUTANEOUSLY EVERY 4 WEEKS , Notes to Pharmacist: *Please review and pick correct strength-formulation from [employer] options. If intended option is not shown, discontinue and re-order from Quick Search*, Not-Taking/PRN NUCALA PREFILLED SYRINGE 100 MG/ML SOLUTION INJECT, DIRECTED, SUBCUTANEOUSLY EVERY 4 WEEKS , Notes to Pharmacist: *Please review for potential replacement for e-prescription and drug interaction check*, Not-Taking/PRN DUPIXENT PRE-FILLED SYRINGE 300 MG/2 ML SOLUTION INJECT 300 MG (1 SYRINGE) UNDER THE SKIN EVERY 2 WEEKS DIRECTED , Notes to Pharmacist: *Please review for potential replacement for e-prescription and drug interaction check*, Not-Taking/PRN VRAYLAR 1.5 mg capsule 1 cap(s) orally once a day , Not-Taking/PRN DALIRESP 250 mcg tablet 1 tab(s) orally once a day , Not- Taking/PRN Vraylar 1.5 MG Capsule 1 cap(s) orally once a day , Not-Taking/PRN Daliresp 250 MCG Tablet 1 tab(s) orally once a day , Discontinued Albuterol Sulfate HFA 108 (90 Base) MCG/ACT Aerosol Solution 2 puffs as needed Inhalation every 4 hrs , Discontinued FISH OIL 500 mg capsule 1 cap(s) orally once a day , Discontinued VITAMIN D3 50 mcg tablet 1 tab(s) orally once a day , Discontinued LIPITOR 20 mg tablet 1 tab(s) orally once a day , Discontinued CELEXA 40 mg tablet 1 tab(s) orally once a day Objective: * Vitals: * Examination: G eneral examination: General appearance: p leasant, well-developed, well-nourished. HEENT: c onjunctiva are clear bilaterally, no tenderness to palpation of the sinuses, TM's without evidence of acute infection, no visible polyps, c lear rhinorrhea is present, no septal perforation, posterior oropharynx is clear, no exudates, no tongue swelling, and uvula is midline. Oral cavity: n ormal, no lesions. Neck, thyroid : s upple, non-tender, no anterior cervical lymphadenopathy. Breasts : n ot performed. Heart: R RR, S1-S2, no murmurs, no rubs, no gallops. Lungs: c lear to auscultation and percussion in all lung hawkins, no wheezes or crackles. Neurologic exam: u nremarkable. Skin: n ormal, no rash, dermatographism, urticaria, angioedema. Peripheral pulses: n ormal (2+) bilaterally. Back: n ormal. Extremities: n ormal ROM, no clubbing, no cyanosis, no edema. Genitalia: n ot performed. Assessment: * Assessment: 1. C hronic sinusitis, unspecified - J32.9 (Primary) 2 . C hronic obstructive pulmonary disease, unspecified - J44.9 3 . N onfamilial hypogammaglobulinemia - D80.1 4 . N baldemar polyp, unspecified - J33.9 5 . S evere persistent asthma, uncomplicated - J45.50 6 . A llergic rhinitis due to pollen - J30.1 7 . O ther pulmonary eosinophilia, not elsewhere classified - J82.89 ? 8 . A llergic rhinitis due to animal (cat) (dog) hair and dander - J30.81 9. O ther allergic rhinitis - J30.89 1 0. O ther chronic allergic conjunctivitis - H10.45 Plan: * Treatment: 2. C hronic obstructive pulmonary disease, unspecified Start Trelegy Ellipta Aerosol Powder Breath Activated, 200-62.5-25 MCG/ACT, 1 puff, Inhalation, Once a day, 30 days, 1, Refills 5; S tart Albuterol Sulfate HFA Aerosol Solution, 108 (90 Base) MCG/ACT, 2 puffs as needed, Inhalation, every 4 hrs, 30 days, 1, Refills 0. 3. N onfamilial hypogammaglobulinemia Notes: CVID diagnosed by Dr. Haney many years ago, but never received IVIG. Labs showed IgG 835, IgA 121, IgM 129, IgE 63, elevated NK cells. Normal tetanus and HIB titers. S. Pneumo reduced. She has received Pneumovax and titers now normal. She does not meet criteria for CVID 4. N baldemar polyp, unspecified Notes: plan as above 5. S evere persistent asthma, uncomplicated Notes: COPD/severe asthma. Following with Dr. Mccallum. She restarted Trelegy when asthma flared while on Nucala. She would now like to stop Trelegy. Plan to stop Trelegy and f/u in 1 month for spirometry 6. A llergic rhinitis due to pollen Notes: Marizol clearly suffers from atopic disease based upon our skin testing. Accordingly, we have introduced a new, aggressive medication regimen, discussed nasal washes and allergy-specific avoidance measures. We also discussed adjunctive therapies including subcutaneous, specific allergen immunotherapy as relates to the treatment and prevention of atopic disease. She received immunotherapy in the past without improvement. 7. O ther chronic allergic conjunctivitis Notes: Given ocular signs and symptoms I encouraged allergy avoidance measures and meds as above. If symptoms persist, consider adding additional medications including intraocular antihistamine/mast cell stabilizer, PRN * Procedure Codes: 9 6160 PT-FOCUSED HLTH RISK ASSMT, G8427 DOC MEDS VERIFIED W/PT OR RE, A4617 Mouthpiece, [address]120 RESPIRATORY FLOW VOLUME LOOP * Preventive Medicine: Counseling: D iet a s tolerated. E xercise C ontinue activity as usual. M edication instruction: W atch for side effects of prescribed medications, Nasal steroid instruction: avoid septum, Watch for side effects of prescribed medications. E ducation: O ur staff spent an additional 30 minutes in direct contact with the patient educating them on their current diagnoses and proper treatment and prevention of symptoms and the proper use of medications. E ducation 2: O ur staff discussed the appropriate allergen avoidance measures and medication utilization including upper airway hygiene with daily nasal washes given the patient's clinical status and diagnoses. P atient education material sent to portal? Y es C are goal follow up plan BMI management provided Y es Above Normal BMI Follow-up D ietary management education, guidance, and counseling B P Management: FIRST HYPERTENSIVE BP READING FOLLOW-UP PLAN: F ollow-up 1 month REFERRAL TO ALTERNATIVE / PRIMARY CARE PROVIDER: R eferral to general practitioner * Follow Up: 4 Weeks (Reason: spirometry) * Billing Information: * Visit Code: 05292 Office Visit, Est Pt., Level 4. Modifiers: 25 * Procedure Codes: 97885 PT-FOCUSED HLTH RISK ASSMT. G8427 DOC MEDS VERIFIED W/PT OR RE. A4617 Mouthpiece. [address]69[address] RESPIRATORY FLOW VOLUME LOOP. * Electronic signature of Zaina karie Blackwell MD on 01/08/2025 at 07:40 PM CDT Sign off status: Pending * Provider: Liliana Blackwell MD Date: 1 08/17/2023 Generated for Printi ng/Fasuhailg/eTransmitting on: 0 01/08/2025 07:40 PM CDT History and Physical Notes * HPI (History of Present Illness) Category Sub-Category Detail Notes Category Not es *Introduction HPI: Marizol Subramanian, a 59 year old with chronic eosinophilic pneumonia, COPD, ARC, and chronic sinusitis with nasal polyps s/p sinus surgery presenting for f/u evaluation chronic sinusitis and asthma. She was last evaluated 12-02-2023. She restarted Dupxient and improvement in nasal congestion, eczema and asthma. She has not requierd albuterol since last visit. While on Nucala asthma flared and increase in nasal congestion. She continues to have a swollen tongue. She is planning to be evaluated by ENT. She was evaluated by Dr. Gao at [facility] and she reports normal evaluation. She continues to follow with Dr. Mccallum. She quit smoking several years ago. She is no longer taking Symbicort or Lonhala. She follows with Dr. 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 Bronchoscopy performed and bronchial lavage with 26% eosinophils. At her initial visit, she reported constant congestion and ear fullness along with decreased sense of smell. Polypectomy was performed twice and most recently in [address] Harris at [facility]. First surgery was performed in [address] Nelson. Prior to starting Dupixent required steroids almost on a monthly basis for sinusitis and flares of COPD. She last required steroids . Skin testing was performed over 10 years ago and she received SCIT from Dr. Harris's office. No improvement in congestion and rhinorrhea with SCIT. If she drinks beer or wine, develops increase in congestion. She tolerates some beer without event. She tolerates ibuprofen and aspirin without event. She has a 25 pack year smoking history. Today, she reports no fevers, chills, night sweats or other constitutional symptoms Asthma follow-up Asthma Survey - Classification Coughing, wheezing, shortness of breath or tightness in the chest during the day: Twice a week or less Coughing, wheezing, shortnes s of breath or tightness in the chest at night: Once every 2 weeks Asthma severity classification: Severe P ersistent Examination Category Sub-Category Detail Notes Category Not es General examination HEENT: conjunctiva are clear bilaterally, no tenderness to palpation of the sinuses, TM's without evidence of acute infection, no visible polyps, clear rhinorrhea is present, no septal perforation, posterior oropharynx is clear, no exudates, no tongue swelling, and uvula is midline Neck, thyroid : supple, non-tender, no anterior cervical lymphadenopathy Heart: RRR, S1-S2, no murmu rs, no rubs, no gallops Lungs: clear to auscultatio n and percussion in all lung hawkins, no wheezes or crackles Abdomen: Extremities: normal ROM, no clubb ing, no cyanosis, no edema General appearance: pleasant, well-devel oped, well-nourished Skin: normal, no rash, nichelle matographism, urticaria, angioedema Neurologic exam: unremarkable Oral cavity: normal, no lesions Breasts : not performed Peripheral pulses: normal (2+) bilatera lly Back: normal Genitalia: not performed
--- OUTSIDE RECORDS SUMMARY | 2025-01-08 19:40 | XMS_ITS | Data Portability ---
Author Organization [place] - [employer], Main Office Address [address] [place] [address] Care Team Providers Care Acid Cleaner Name Role Phone MARSHA MENDOZA Primary Care Provider MARSHA MENDOZA Referring Provider [phone] Assessment Encounter Date Assessment Date Assessment LastModified by Organization Details LastModified Time 12/29/2024 12/29/2024 HPI: 59 year old female presents today for evaluation of right knee pain that has been ongoing for 3 weeks. Described pain as intermittent, achy, sometimes sharp, and localized to the medial aspect of the knee. Pain is aggravated by prolonged sitting and is worse at night. States the pain is preventing her from doing ADLs. Currently rates pain as 7/10. She has tried ice/heat and meloxicam with minimal relief. Denies any prior or recent injury. Denies mechanical sx. 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 ROS: Per patient questionnaire Physical Exam: General: Normal appearance. No acute distress. Inspection: No evidence of swelling, erythema, bruising or deformity. Palpation: Tenderness at the medial joint line, pes anserine insertion, and along the MCL tendon ROM: Full ROM Special Test: Pain with terminal flexion. Pain Kari, Negative Lachmann, Pain with valgus stress. Negative Posterior Draw. Motor: 5/5 strength. Sensation: Sensation intact. Imaging: Xray reviewed. No fractures or other bony abnormalities. Narrowing of the medial joint spaces and patellofemoral compartments bilaterally with subchondral sclerosis. Left knee also has lateral joint space narrowing. Assessment & Plan: DDx osteoarthritis, pes anserine syndrome, MCL sprain Injection given today. Patient tolerated injection. Patient will monitor site for signs of infection and report any adverse side effects. PT ordered Rx for Naproxen. Will switch to meloxicam to naproxen. Discussed to not take both medications. Follow Up: 6 weeks after a course of PT. All questions were answered. Patient verbalized understanding of treatment plan olga Not available 12/29/2024 17:07:03 Plan of Treatment Reminders Order Date Submit Date Provider Last Modified By Organization Details Last Modified Time Details Appointments Solv Use Only_Foll [email or web address] 2024 02:15P M ALLY Humphrey Not available Not available Not available Any 10 2024 02:30P M Marsha Rojas PA-C Not available Not available Not available Lab None recorded. Referral physical therapist referral - Please contact pt to schedule for R knee. Thanks 2024 025 [facility] [place] [facility], [address], [place], [address], 12/30/2024 14:48:[address] referral - Please call patient to schedule an appointme nt. Thank you. 2024 025 [facility] Yolanda Landers MD, 3 [facility], [address], [address], 11/27/2024 13:55:14 Procedures injection /aspirati on joint/bur sa (PROC) 2024 025 [email or web address] 1 In-Office Order, Internal Use Only DO Not Attach Compendium DO Not Attach Compendium, Do Not Delete/merge, [id number] 12/29/2024 16:14:27 Surgeries None recorded. Imaging XR, knee, 3 view 2024 025 olga [facility] [place], [address], [place], [address], 12/29/2024 16:45:49 Medication Orders bupivacai ne HCl 0.5 % (5 mg/mL) injection solution 2024 025 [email or web address] 1 [facility][id number], [address], [place], [place], [id number], 12/29/2024 16:14:27 Kenalog 10 mg/mL suspensio n for injection 2024 025 [email or web address] 1 [facility] #[id number], [address], [place], [place], [id number], 12/29/2024 16:14:28 naproxen 500 mg tablet 2024 025 abollone [facility] #[id number], [address], [place], [place], [id number], 12/29/2024 17:08:42 meloxicam 15 mg tablet 2024 025 DANNY [facility] #[id number], [address], [place], [place], [phone], 11/26/2024 11:15:12 Patient TargetsNo targets recorded. Patient InstructionsNo instructions recorded. Reason for Referral Neurologist Referral for Fac ial palsy Please call patient to schedule an appointment. Thank you. Referring Physician: Marsha Mendoza, Family Medicine, Encounter Date: 11/26/2024 Physical Therapist Referral for Pain of right knee region R knee Please contact pt to schedule for R knee. Thanks Referring Physician: Marsha Rojas, Orthopedic Surgery, Encounter Date: 12/29/2024 Results Created Date Observation Date Name Description Value Unit Range Abnormal Flag Note LastModifiedBy Organization Detail LastModifiedTime 12/30/19 25 XR, knee, 3 view No observ ation record ed. olga [facility] [place] [address], [place], [address], 12/29/2024 16:45:48 Result Notes None recorded. 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 ALLY Humphrey [address], [address], [place], [address], [employer] [facility] [employer] [facility] 10:50:44 Bipolar disorder, most recent episode depression 730030600 Active 2024 ALLY Humphrey [address], [address], [place], [address], [employer] [facility] [employer] [facility] 10:56:06 Multiple nodules of lung 862178080 Active 2024 ALLY Humphrey [address], [address], [place], [address], [employer] [facility] 10:56:19 Pain of right knee joint 8091189862606 00 Active 2024 ALLY Humphrey [address], [address], [place], [address], [employer] [facility] [employer] [facility] 10:58:56 Plicated tongue 28206436 Active 2024 ALLY Humphrey [address], [address], [place], [address], [employer] [facility] [employer] [facility] 11:10:17 Mild intermitten t asthma 206326870 Active 2024 ALLY Humphrey [address], [address], [place], [address], [employer] [facility] [employer] [facility] 5 11:11:30 Mixed hyperlipide manju 241341037 Active 2024 ALLY Humphrey [address], [address], [place], [address], [employer] [facility] [employer] [facility] 5 11:11:48 Obstructive sleep apnea syndrome 27048986 Active 2024 ALLY Humphrey [address], [address], [place], [address], [employer] [facility] [employer] [facility] 11:11:53 Pain of right knee region 1053432984423 05 Active 2024 PRATIBHA Burnett null, [facility] [employer] [facility] 15:42:06 Bilateral osteoarthri tis of knees 2660984283738 07 Active 2024 Marsha Rojas PA-C [address], [address], [place], [address], [facility] [employer] [facility] 17:05:34 Problem Notes None recorded. Procedures Surgical History Date Name Laterality Status Provider Name and Address Organization Details Recorded Time 12/30/19 25 Bollone Injection Template completed Marsha Rojas PA-C [address], [place], [address], [facility] [employer] [facility] 12/29/2024 17:04:02 tonsillectomy completed Sayra Venegas RN [facility] [employer] [facility] 11/26/2024 10:37:24 Imaging Results None recorded. Procedure Notes None recorded. Medical Equipment None Reported. Allergies Allergen ID Allergen Name Allergen Category Reaction Reaction Severity Criticality Documentation Date Start Date Code Code System Note Provider Name and Address Organization Details Recorded Time 70626 ampicilli n medicatio n Not available Not available Not available 11/26/2024 733 RxNorm Sayra Venegas RN [facility], [facility] 10:30:57 Medications Name Sig Start Date Stop Date Status Note LastModified by Organization Details LastModified Time atorvastati n 20 mg tablet Take 1 tablet every day by oral route at bedtime. active Not Available Not Available No t Available clindamycin HCl 300 mg capsule TAKE 1 CAPSULE BY MOUTH THREE TIMES DAILY FOR 10 DAYS 11/26 completed Not Available Not Available Not Available Lidocaine Viscous 2 % mucosal solution RINSE AND GARGLE 10 ML BY MOUTH OR THROAT EVERY 4 HOURS NEEDED FOR PAIN OR IRRITATIO N 11/26 completed Not Available Not Available Not Available meloxicam 15 mg tablet TAKE 1 TABLET BY MOUTH EVERY DAY DIRECTED active Not Available Not Available No t Available bupivacaine HCl 0.5 % (5 mg/mL) injection solution Take 4 mL by injection route. 2024 active Not Available Not Available Not Avai lable acetaminoph en 500 mg tablet TAKE 2 TABLETS BY MOUTH EVERY 6 HOURS NEEDED FOR PAIN active Not Available Not Available No t Available lamotrigine 25 mg tablet TAKE 1 TABLET BY MOUTH TWICE DAILY active Not Available Not Available No t Available Kenalog 10 mg/mL suspension for injection Take 2 mL by injection route. 2024 active [facility]: [phone] Not Available Not Available Not Available ibuprofen 600 mg tablet TAKE 1 TABLET BY MOUTH THREE TIMES DAILY NEEDED FOR PAIN active Not Available Not Available No t Available albuterol sulfate HFA 90 mcg/actuati on aerosol inhaler INHALE 2 PUFFS BY MOUTH EVERY 4 HOURS NEEDED active Not Available Not Available No t Available naproxen 500 mg tablet Take 1 tablet twice a day by oral route. 2024 active Not Available Not Available Not Avai lable Vitamin D3 5000 units daily active Not Available Not Available No t Available Dupixent 300 mg/2 mL subcutaneou s pen injector Inject 2 mL every 2 weeks by subcutane ous route as directed. active Not Available Not Available No t Available Trelegy Ellipta 200 mcg-62.5 mcg-25 mcg powder for inhalation INHALE 1 PUFF BY MOUTH DAILY 11/26 completed Not Available Not Available Not Available Vitals Date Recorded Body weight Body mass index (BMI) Body height Body temperature Heart rate Respiratory rate Oxygen saturation Oxygen saturation in Arterial blood by Pulse oximetry Systolic And Diastolic Provider Name and Address Organization Details Last Updated DateTime 21244.3 3 g 34.3 kg/m2 167.64 cm 97.2 [degF] 90 /min 24 /min 94 % 94 % 132/84 mm[Hg] Sayra Venegas RN [facility] [employer] 10:35:45 Date Recorded Body height Body mass index (BMI) Body weight Provider Name and Address Organization Details Last Updated DateTime 12/29/2024 167.64 cm 34.5 kg/m2 06881.77 g Alee Espinosa [place] [employer] [facility] [employer] 12/29/2024 15:39:45 Social History Question Answer Notes LastModified by Organizat ion Details LastModified Time Tobacco Smoking Status Former Smoker Sayra Venegas RN null, [place] [facility] [employer] [facility] 11/26/2024 10:40:50 What Is Your Level Of Caffeine Consumption? Moderate Information not available 11/26/2024 In The 14 Days Before Symptom Onset, Have You Had Close Contact With A Laboratory-confi rmed COVID-19 While That Case Was Ill? No Information not available 11/26/2024 In The 14 Days Before Symptom Onset, Have You Had Close Contact With A Person Who Is Under Investigation For COVID-19 While That Person Was Ill? No Information not available 11/26/2024 What Type Of Diet Are You Following? REGULAR Information not available 11/26/2024 Have There Been Any Changes To Your Family Or Social Situation? Yes Son Moved Out Of House Information not available 11/26/2024 Do You Use Insect Repellent Routinely? Yes Information not available 11/26/2024 Where Do You Live? [facility] Information not available 11/26/2024 What Was The Date Of Your Most Recent Tobacco Screening? 12/29/2024 [email or web address] Information not available 12/29/2024 How Many Children Do You Have? 3 Information not available 11/26/2024 Do You Have Any Pets? Yes Information not available 11/26/2024 What Is Your Relationship Status? Information not available 11/26/2024 Do You Use Your Seat Belt Or Car Seat Routinely? Yes Information not available 11/26/2024 Do You Have Smoke And Carbon Monoxide Detectors In Your Home? Yes Information not available 11/26/2024 At What Age Did You Start Smoking Tobacco? 19 Information not available 11/26/2024 Are You Passively Exposed To Smoke? No Information not available 11/26/2024 Are There Any Smokers In Your House? No Information not available 11/26/2024 How Much Tobacco Do You Smoke? 1 PPD Information not available 11/26/2024 Do You Participate In Social Media? Yes Information not available 11/26/2024 Do You Use Sunscreen Routinely? Yes Information not available 11/26/2024 How Many Years Have You Smoked Tobacco? 20 Information not available 11/26/2024 Have You Recently Traveled Abroad? No Information not available 11/26/2024 Sex: Unknown Functional Status Question Answer Note LastModified by Organizat ion Details LastModified Time Do you use any illicit or recreational drugs? No Information not available 11/26/2024 What is your level of alcohol consumption? Occasional Information not available 11/26/2024 Are you currently employed? 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 None Information not available 11/26/2024 Mental Status Question Answer Note LastModified by Organization D etails LastModified Time Do you feel stressed (tense, restless, nervous, or anxious, or unable to sleep at night)? [id number] Information not available 11/26/2024 Family History Relationship Description Onset Age of this Age Resolved Age Notes LastModified by Organization Details LastModified Time Mother Malignant neoplasm of lung Not available 2024 10:36:02 Mother Hypercholest erolemia Not available 2024 10:36:23 Father Essential hypertension Not available 10:36:12 Father Diabetes mellitus Not available 2024 10:36:33 Medical History Condition Response HIGH CHOLESTEROL / HYPERLIPIDEMIA Y ASTHMA Y HYPERTENSION Y OBESITY Y OSTEOPOROSIS Y Gynecological History Statement/Question Response Date of Last Pap Smear Date of Last Colonoscopy Most Recent Mammogram Date of LMP Most Recent Bone Density Obstetrics History GPAL:G 0 P 0 0 0 0 Past Encounters Encounter ID Performer Location Encounter Start Date Encounter Closed Date Diagnosis/Indication Diagnosis SNOMED-CT Code Diagnosis ICD10 Code Diagnosis Note [id number] ALLY Humphrey [facility] [address] [address] 11/26/2024 10:12:57 11/26/2024 11:28:55 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 Sees pulm. Had a CT scan this month Mild inter mittent asthma 398144742 J45.20 Sees pulm, takes Dupixent Mixed hyperlipidemia 267 881623 E78.2 Well controlled with atorvastat in, does have some mild calf cramping. Wants to continue with atorvastat in at this time Obstructiv e sleep apnea syndrome 32488820 G47.33 Managed by pulm [id number] Kamaljit Alvarado MD [facility] [place] [address] [place] [address] 12/29/2024 15:18:33 12/29/2024 16:24:37 Pain of right knee region 7546015761 44989 M25.561 Bilateral osteoarthritis of knees 9719669614 59061 M17.0 Health Concerns Section Related Observation LastModified by Organization Detai ls LastModified Time None Recorded Concern Status LastModified by Organization Details LastModified Time None Recorded Advance Directives Directive None Recorded Payers Insurance Date Sequence Insurance Name Policy Number Policy Henry Covered Member ID Henry Member ID Guarantor Name 12/29/2024 1 [facility] () Marizol Subramanian [id number] Marizol Subramanian Notes Date Note Type Note Provider Name and Address Organization Details Recorded Time 11/26/2024 text/html Marizol Subramanian is a 59 year old female patient here today to establish care. [place] She has had annual labs done within the last year and does blood work with her test fixture assembler every 6 months. She has had TIAs in the past. She does see cardiology regularly. She has issues with dry mouth and difficulty with motor function of her tongue. She has seen rheumatology and sjogrens was ruled out. This has been going on for approx 18 months. She has moderate to severe asthma. She is taking Dupixent. She also utilizes albuterol PRN.She notes that when she is on Dupixent her eosinophils have been very high She has a history of hyperlipidemia, she does take atorvastatin 20 mg at bedtime. She does get occasional calf cramping. She does see a industrial psychology professor. She has a diagnosis of Bipolar disorder and is taking lamotrigine 25mg She has JENNIFER, this is managed by pulmonology. She has a solidarity lung nodule, [place] She has concerns today with right knee pain. This has been present x 1 month. The pain is medial and hurts with external rotation. Pain is worse after exertion. Hyperflexion is painful. Flu shot: OVID vaccines: x2 2020Tdap: believes within the last 10 yearsShingrix completedpneumonia vaccines completedColonoscopy: 2019 - diverticulosis, advised to FU in 10 yearsWWE managed [place] ALLY Humphrey [address], [place], [address], [place] [facility] [employer] 11/26/2024 11:15:04 OBGyn Episode No OBEpisode recorded.
--- OUTSIDE RECORDS SUMMARY | 2025-01-08 19:40 | XMS_ITS | Referral Summary ---
Author Organization [facility] Address [address] [place] [address] Care Team Providers Care Field Irrigation Worker Name Role Phone Allan Hector MD Primary Care Provi nichelle Abraham Gao MD Unavailable [phone] Allergies Active Allergy Reactions Criticality Noted [...] history. She does not have a current oim architect. 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
--- OUTSIDE RECORDS SUMMARY | 2025-01-08 19:40 | XMS_ITS | Clinical Summary ---
Author Organization [facility] Address [address] [place] [address] Care Team Providers Care Atm Manager Name Role Phone Drake Salvador Primary Care Provider Patience e Source Comments [facility],non-owned Affiliates and Associated Physician Practices is amultiple site organization consisting of ambulatory clinics and hospital sitesin [place], [place]. This disclosure is being madepursuant to the Care Everywhere program and may not contain all information available regarding this patient. Last updated 18.[facility] [employer] Allergies Active Allergy Reactions Criticality Noted Date Comments Ampicillin Rash Medium 11/19/2019 Medications * Be aware that medications may not be up to date on this document. Alwaysverify current medications with the patient. albuterol HFA (PROVENTIL;EFRAIN DOLORES;PROAIR) 108 (90 Base) MCG/ACT inhaler every 6 hours Active SYMBICORT 160-4.5 MCG/ACT inhaler 10/06/2019 Active VRAYLAR 1.5 MG capsule 11/11/2019 Active cetirizine-pseud oephedrine 12hr (ZYRTEC-D) 5-120 MG tablet Active citalopram (CELEXA) 40 MG tablet 10/16/2019 Active VOLTAREN 1 % gel 08/26/2019 Ac tive DUPIXENT 300 MG/2ML prefilled syringe 11/02/2019 Active Glycopyrrolate 25 MCG/ML SOLN Inhale 25 mcg by mouth 2 times daily 12/22/2018 Active LONHALA MAGNAIR REFILL KIT 25 MCG/ML SOLN 08/10/2019 Active Ibuprofen (ADVIL PO) Active Acetaminophen (TYLENOL PO) Active Active Problems No known active problems Social History Tobacco Use Types Packs/Day Years Used Date Smoking Tobacco: Former Smokeless Tobacco: Never Alcohol Use Standard Drinks/Week Comments Yes 0 (1 standard drink = 0.6 oz pur e alcohol) AUDIT-C Answer Date Recorded Q1: How often do you have a drink containing alc ohol? 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 Gender Identity Not on file Sexual Orientation Not on file Last Filed Vital Signs Vital Sign Reading Time Taken Comments Blood Pressure - - Pulse - - Temperature - - Respiratory Rate - - Oxygen Saturation - - Inhaled Oxygen Concentration - - Weight 85.7 kg (189 lb) 11/19/2019 9:35 AM CDT Height 167.6 cm (5' 6) 11/19/2019 9:35 AM CDT Body Mass Index 30.51 11/19/2019 9:35 AM CDT Plan of Treatment Health Maintenance Due Date Last Done Comments COLOGUARD (AGES 45-75) - COL ON CA SCREENING 1966 COLON MONITORING 1966 COLONOSCOPY - COLON CA SCREENING 1966 CT COLONOGRAPHY - COLON CA SCREENING 1966 Colorectal Cancer Screening 1966 FIT - COLON CA SCREENING 1966 FLEX SIG - COLON CA SCREENING 1966 LIPID TESTING 1966 MAMMOGRAM 1966 HIV SCREENING 1981 HEPATITIS C SCREENING 01/25/1984 DTAP/TDAP/TD VACCINES (1 - Tdap) 1985 HEPATITIS B VACCINE (1 of 3 - 19+ 3-dose series) 1985 PNEUMOCOCCAL VACCINE 50+ (1 of 1 - PCV) 01/30/2016 ZOSTER VACCINE (1 of 2) 01/30/2016 SCREENING FOR DIABETES 11/19/2019 COVID-19 VACCINE ( - 2023-2 5 season) 2024 DEPRESSION SCREENING 06/30/2024 INFLUENZA VACCINE (#1) 2025 04/01/2016 HIB VACCINE Aged Out No longer eligi ble based on patient's age to complete this topic HPV VACCINE Aged Out No longer eligi ble based on patient's age to complete this topic MENINGOCOCCAL (Group B) VACC INE SHARED DECISION-MAKING Aged Out No longer eligibl e based on patient's age to complete this topic MENINGOCOCCAL GROUPS A/C/Y/W VACCINE Aged Out No longer eligible b ased on patient's age to complete this topic Goals Goal Patient Goal Type Associated Problems Recent Progress Patient-Stated? Author Mobility General No Bernadette France, RN Note: Expected end date: 2020 The goal is to maintain or improve your mobility at the optimum level for you. Interventions: Insurance [facility] Care Teams Atm Manager Relationship Specialty Start Date End Date Drake Salvador Update Information PCP - General 06/01/19
--- OUTSIDE RECORDS SUMMARY | 2025-01-08 19:40 | XMS_ITS | Clinical Summary ---
Author Organization [facility] Address [address] [place] [address] Care Team Providers Care Animal [facility] Clerk Name Role Phone TaraLala West GOODMAN Primary Care Provider [phone] Allergies Active Allergy Reactions Criticality Noted Date Comments Ampicillin Rash,Unknown Medium 09/28/2012 Medications atorvastatin 20 MG tablet 1 tablet daily. 08/17/2021 Active VRAYLAR 1.5 MG capsule 1 capsule daily. 09/28/2021 Active citalopram 40 MG tablet 1 tablet daily. 09/04/2021 Active DUPIXENT 300 MG/2ML injection every 14 (fourteen) days. 10/01/2021 Active Active Problems Problem Noted Date Diagnosed Date Chronic obstructive pulmonary disease (CMS/HCC H HS/HCC) 10/03/2021 Overweight 05/03/2021 JENNIFER (obstructive sleep apnea) 07/21/[address] scan Family History Medical History Relation Comments Stroke Brother 1 Heart Attack Maternal Grandfather Relation Status Comments Brother 1 Alive Brother 2 Alive Father Alive Maternal Grandfather (Age 58) Maternal Grandmother (Age 85) Mother (Age 79) Paternal Grandfather (Age 77) Paternal Grandmother (Age 86) Sister Alive Social History Tobacco Use Types Packs/Day Years Used Date Smoking Tobacco: Former Cigarettes Q uit: 08/2018 Smokeless Tobacco: Never Alcohol Use Standard Drinks/Week Comments Yes 13.3 (1 standard drink = 0.6 oz pure alcohol) Comments Unknown Sex and Gender Information Value Date Recorded Sex Assigned at Not on file Legal Sex Female 7:21 PM CDT Gender Identity Not on file Sexual Orientation Not on file 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 Not on file No t on file Last Filed Vital Signs Vital Sign Reading Time Taken Comments Blood Pressure 128/80 10/03/2021 10:00 AM CDT Pulse 70 10/03/2021 10:00 AM CDT Temperature - - Respiratory Rate - - Oxygen Saturation 99% 10/03/2021 10:00 AM CDT Inhaled Oxygen Concentration - - Weight 96.2 kg (212 lb) 10/03/2021 10:00 AM CDT Height 167.6 cm (5' 6) 10/03/2021 10:00 AM CDT Body Mass Index 34.22 10/03/2021 10:00 AM CDT Plan of Treatment Upcoming Encounters Date Type Department Care Team (Late st Contact Info) Description 03/02/2025 8:20 AM CDT Office Visit [facility] - [address], [address] [place] [id number] Yolanda Landers MD [address] [place] [address] Health Maintenance Due Date Last Done Comments Cervical Cancer Screening Pa p Smear (Age 30 to 64) Every 3 Years 1966 Colorectal Cancer Screening Colonoscopy (10 Years) 1966 Annual Physical 1969 Hepatitis C 01/30/1984 DTaP, Tdap and Td Vaccines ( 1 - Tdap) 1985 Hepatitis B Vaccines (1 of 3 - 19+ 3-dose series) 1985 Cervical Cancer Screening Pa p with HPV Testing (Age 30 to 64) Every 5 Years 01/30/1996 Cervical Cancer Screening with HPV 01/30/1996 Mammogram Screening 2006 Zoster Vaccines (1 of 2) 01/30/2016 Pneumococcal Vaccine: 50+ Ye ars (2 of 2 - PCV) 01/09/2021 01/10/2020 COVID-19 Vaccine (2 - 2023-2 5 season) 2024 06/07/2021 Meningococcal B Vaccine Aged Out No l onger eligible based on patient's age to complete this topic Meningococcal Vaccine Aged Out No yudith lorna eligible based on patient's age to complete this topic RSV Immunizations Under 20 Months Aged Out No longer eligible based on patient's age to complete this topic Insurance Care Teams Animal Hospital Clerk Relationship Specialty Start Date End Date Llaa Pacheco DO [address] [phone] PCP - General INTERNAL MEDICINE 07/31/21
--- OUTSIDE RECORDS SUMMARY | 2025-01-08 19:40 | XMS_ITS | Encounter Summary ---
Author Organization [facility] Address [address] [place] [address] Care Team Providers Care Automotive Collision Estimator Name Role Phone Lala Pacheco DO Primary Care Provider [phone] Encounter Details Date Type Department Care Team (Latest Contact Info) Description 05/05/2018 Abstract [facility] Celeste Christy MD Social History Tobacco Use Types Packs/Day Years Used Date Smoking Tobacco: Never Assessed Comments Unknown Sex and Gender Information Value Date Recorded Sex Assigned at Not on file Legal Sex Female 7:21 PM CDT Gender Identity Not on file Sexual Orientation Not on file documented as of this encounter Plan of Treatment Upcoming Encounters Date Type Department Care Team (Late st Contact Info) Description 03/02/2025 8:20 AM CDT Office Visit [facility] Multispecialty Care - [address], [address] [place] [address] Yolanda Landers MD [address] [place], [place] [id number] documented as of this encounter Visit Diagnoses Not on filedocumented in this encounter Care Teams Automotive Collision Estimator Relationship Specialty Start Date End Date Lala Pacheco DO [address] [place] [address] [address] [place] [address] PCP - General INTERNAL MEDICINE 07/31/21 documented as of this encounter
--- OUTSIDE RECORDS SUMMARY | 2025-01-08 19:51 | XMS_ITS | Continuity of Care Document ---
Author Name [facility] Organization [facility] Care Team Providers Care Probate Paralegal Name Role Phone [facility] Unavailable Unavailable Problems Combined list of problems [...] visit for: issue repeat prescription Inactive Condition [facility] visit for: screening exam for malignant neoplasm cervix Active Condition [facility] visit for: issue repeat prescription for medication [...] tuberculosis Inactive Condition will perform tb testing [facility] Medications Combined list of outpatient medications from [...] he in) Discont inued 01/13/20242023 [facility] (Eqv-Proven til HFA) 90 mcg/inh inhalation aerosol 6 g, 0 Refill(s ), INHALE 2 PUFFS BY MOUTH EVERY 4 HOURS NEEDED, 0 total refill(s ), Soft Stop Discont inued 03/06/20242023 0055C-3 [facility] Christopher albuterol 90 mcg/inh aerosol inhaler 2 puff(s), Inhale, every 4 hr, PRN wheezing as needed for, # 8.5 g, 1 total refill(s ), Maintena nce, 8.5g = 1 inhaler, Pharmacy : [facility] #[id number] Inhala tion (breat he in) Ordered 2023 8.5 0055C-3 [facility] Christopher albuterol 90 mcg/inh aerosol inhaler 0 Refill(s ), 0 total refill(s ), Soft Stop Discont inued 03/06/20242023 0055C-[address] [place] [address] Christopher ARIPiprazol e 5 mg oral tablet 30 EA, 0 Refill(s ), 0 total refill(s ), Soft Stop Discont inued 01/13/20242023 0055C-3 [facility] Christopher atorvastati n 20 mg oral tablet 90 tab(s), 0 Refill(s ), 0 total refill(s ), Soft Stop Discont inued 01/13/20242023 0055C-3 [facility] atorvastati n 20 mg oral tablet TAKE ONE TABLET BY MOUTH EVERY DAY, # 90 EA, 3 total refill(s ), Acute Complet ed 07/11/2023 3 2023 90.0 Ambulat ory Pharmac y benzocaine 20% mucous membrane gel 1 appl(s), Topical, QID, PRN pain, # 11.9 g, 0 total refill(s ), Acute, 01/13/24 10:24:10 AM CDT, Pharmacy : [facility] #[id number] Topica l (on the skin) Discont inued 01/13/20242023 11.9 0055C-[address] [place] [address] brexpiprazo le Oral, Daily, 0 total refill(s ), Maintena nce Oral (given by mouth) Discont inued 01/13/20242023 0055C-[address] [place] [address] Christopher budesonide 0.5 mg/2 mL inhalation suspension 3 Refill(s ), 0 total refill(s ), Soft Stop Discont inued 01/13/20242023 0055C-3 [facility] Christopher budesonide- formoterol 160 mcg-4.5 mcg/inh inhalation aerosol 3 Refill(s ), 0 total refill(s ), Soft Stop Discont inued 01/13/20242023 0055C-[address] [place] [address] Christopher calcium carbonate 600 mg oral tablet, chewable tab(s), Chew, Daily, 0 total refill(s ), Maintena nce Chew Ordered 2023 0055C-[address] [place] [address] Christopher cariprazine 1.5 mg oral capsule 3 mg, oral, 0 Refill(s ), 0 total refill(s ), Soft Stop Discont inued 01/13/20242023 0055C-[address] [place] [address] Christopher citalopram 40 mg oral tablet 1 tab(s), Oral, Daily, # 30 tab(s), 0 total refill(s ), Maintena nce Oral (given by mouth) Ordered 2023 30.0 0055C-[address] [place] [address] Christopher CITALOPRAM HBR (CITALOPRAM HYDROBROMID E), 40MG, TABLET, ORAL, [facility], 500 ea. BOTTLE Cancele d [id number] : 2023 0 Pharmac y Data Transac [...] total refill(s ), Maintena nce, Pharmacy : [facility] Oral (given by mouth) Ordered 5 2024 14.0 0055C-[address] [place] [address] Christopher mepolizumab (Nucala) 100 mg subcutaneou s injection vial 100 mg, SubCutan eous, every 4 wk, # 1 EA, 0 total refill(s ), Maintena nce SubCut aneous (under the skin) Discont inued 01/13/20242023 1.0 0055C-[address] [place] [address] Christopher mepolizumab (Nucala) Prefilled Syringe 100 mg/mL subcutaneou s solution 1 syringe( s), 0 Refill(s ), 0 total refill(s ), Soft Stop Discont inued 03/06/20242023 0055C-[address] [place], [place] [address]MOR White multivitami n adult, oral tablet Oral, Daily, 0 total refill(s ), Maintena nce Oral (given by mouth) Ordered 2023 0055C-[address] [place] [address] Christopher NUCALA (mepolizuma b), 100 MG/ML, SYRINGE, SUBCUT, GLAXOSMITHK LINE, 1 ml SYRINGE Active [id number] 2023 1 Pharmac y Data Transac tion Service Facilit y NUCALA (mepolizuma b), 100 MG/ML, SYRINGE, SUBCUT, GLAXOSMITHK LINE, 1 ml SYRINGE Active [id number] 4 2023 1 Pharmac y Data Transac tion Service Facilit y Probiotic 10 Ultra Strength Oral, Daily, 0 total refill(s ), Maintena nce Oral (given by mouth) Ordered 2023 0055C-[address] [place] [address] Christopher Trelegy Ellipta 200 mcg-62.5 mcg-25 mcg/inh inhalation powder 1 puff(s), Inhale, Daily, # 60 EA, 0 total refill(s ), Maintena nce, quantity of 60 EA = 30 day supply Inhala tion (breat he in) Discont inued 07/30/20242024 60.0 0055C-[address] [place] [address] Christopher Vitamin B12 0 total refill(s ), Maintena nce Ordered 2023 [facility] Vitamin D2 1.25 mg (50,000 intl units) oral capsule 1.25 mg, Oral, every week, # 12 cap(s), 0 total refill(s ), Maintena nce, 12 caps = 90-day supply, Pharmacy : [facility] Oral (given by mouth) Discont inued 07/30/2024 4 2024 12.0 [facility] D3 0 total refill(s ), Maintena nce Ordered 2023 0055C[facility]3 [facility] Vitamin D3 125 mcg (5000 intl units) oral capsule 1 cap(s), Oral, Daily, with food, # 90 cap(s), 2 total refill(s ), Maintena nce, Pharmacy : [facility] Oral (given by mouth) Ordered 4 2023 90.0 0055C-3 [facility] Vraylar 1.5 mg oral capsule 30 EA, 0 Refill(s ), 0 total refill(s ), Soft Stop Discont inued 01/13/20242023 0055C[facility]3 [facility] Allergies, Adverse Reactions, Alerts [...] Site Reaction Lot Number CVX Code 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 Comments Source zoster vaccine, inactivated 2022 DARLENERBRUNN ER 187 complet ed Result Comment: Route: Unknown Manufactu rer: OT (SKB) 0055C-3 [facility] influenza, injectable, quadrivalent- pf 2022 DARLENERBRUNN ER 150 complet ed Result Comment: Route: Unknown Manufactu rer: OTH (SKB) 0055C-3 [facility] Influenza, inj, MDCK, quadrivalent- pf 2021 DARLENERBRUNN ER 171 complet ed Result Comment: Route: Unknown Manufactu rer: [facility] (SEQ) 5C-3 [facility] COVID Vaccine [...] 150 complet ed Result Comment: Manufactu rer: [employer] hKline 5C-3 [facility] COVID Vaccine Pfizer 2020 DARLENERBRUNN ER 208 complet ed Result Comment: Unit: Unknown Manufactu rer: Pfizer Manufactu [facility] (PFR) 5C-3 [facility]- Christopher COVID-19, mRNA, LNP-S, PF, 30 mcg/0.3 mL dose 2020 [employer] [place] (PFR) Not Given COVID-19, mRNA, LNP-S, PF, 30 mcg/0.3 mL dose DoD COVID Vaccine Moderna 2020 zzRig Arm [id number] 207 complet ed COVID Vaccine Moderna 09/06/20 Given Ambulat ory Pharmac y SARS-COV-2 (COVID-19) vaccine, mRNA, spike protein, LNP, preservative free, 100 mcg or 50 mcg dose 1 2020 Unknown, Provider [id number] 207 Moderna US, Inc. (MOD) complet ed SARS-COV- 2 (COVID-19 ) vaccine, mRNA, spike protein, LNP, preservat liseth free, 100 mcg or 50 mcg dose DoD COVID Vaccine Moderna 2020 zzRig ht Arm [id number] 207 complet ed COVID Vaccine Moderna 08/09/20 Given Ambulat ory Pharmac y COVID Vaccine Moderna 2020 [id number] complet ed COVID Vaccine Moderna 08/09/20 Given Ambulat ory Pharmac y SARS-COV-2 (COVID-19) vaccine, mRNA, spike protein, LNP, preservative free, 100 mcg or 50 mcg dose 1 2020 Unknown, Provider [id number] 207 Moderna [employer] (MOD) complet ed SARS-COV- 2 (COVID-19 ) vaccine, mRNA, spike protein, LNP, preservat liseth free, 100 mcg or 50 mcg dose DoD influenza, injectable, quadrivalent- pf [facility] [id number] 150 Se[employer] complet ed influenza , injectabl e, quadrival ent-pf 05/20/19 Given Ambulat ory Pharmac y influenza, injectable, quadrivalent- pf 2018 [id number] 150 [employer] complet ed influenza , injectabl e, quadrival ent-pf 05/20/19 Given Ambulat ory Pharmac y Influenza, injectable, quadrivalent, preservative free 1 2018 Unknown, Provider [id number] 150 [employer] (SEQ) complet ed Influenza , injectabl e, quadrival ent, preservat liseth free DoD influenza, injectable, quadrivalent- pf [facility] [id number] 150 [employer] complet ed influenza , injectabl e, quadrival ent-pf 04/03/18 Given Ambulat ory Pharmac y influenza, injectable, quadrivalent- pf 2017 [id number] 150 [employer] complet ed influenza , injectabl e, quadrival ent-pf 04/03/18 Given Ambulat ory Pharmac y Influenza, injectable, quadrivalent, preservative free 1 2017 Unknown, Provider [id number] 150 [employer] (SEQ) complet ed Influenza , injectabl e, quadrival ent, preservat liseth free DoD Influenza, inj, MDCK, quadrivalent- pf 2016 zzLef t Arm [id number] 171 [employer] complet ed Influenza , inj, MDCK, quadrival ent-pf 04/09/17 Given Ambulat ory Pharmac y Influenza, inj, MDCK, quadrivalent- pf [id number] 171 [employer] complet ed Influenza , inj, MDCK, quadrival ent-pf 04/09/17 Given Ambulat ory Pharmac y Influenza, injectable, [place] Canine Kidney, preservative free, quadrivalent 1 2016 Unknown, Provider [id number] 171 [employer] (SEQ) complet ed Influenza , injectabl e, [place] Canine Kidney, preservat liseth free, quadrival ent DoD pneumococcal polysaccharid e, 23 valent 2016 zzRig ht Arm [id number] 33 Merck & Company Inc complet ed pneumococ tony polysacch aride, 23 valent 07/30/16 Given Ambulat ory Pharmac y pneumococcal polysaccharid e, 23 valent 2016 [id number] 33 Merck & Company Inc complet ed pneumococ tony polysacch aride, 23 valent 07/30/16 Given Ambulat ory Pharmac y pneumococcal polysaccharid e vaccine, 23 valent 1 2016 Unknown, Provider [id number] 33 Merck (MSD) complet ed pneumococ tony [...] adsorbed 1 2015 Unknown, [facility] [id number] tetanus toxoid, reduced diphtheri [...] inj, MDCK, quadrivalent- pf 2015 MS.DANIELnDAW SCHULTZ [id number] 171 complet ed Result Comment: Manufactu rer: [employer] 0055C-[address] [place] [address] influenza, live, intranasal,qu adrivalent 2013 [id number] Medimmune Inc comple t ed influenza , live, intranasa l,quadriv alent 04/22/14 Given Ambulat ory Pharmac y influenza, live, intranasal,qu adrivalent 2013 [id number] Medimmune Inc comple t ed influenza , live, intranasa l,quadriv alent 04/22/14 Given Ambulat ory Pharmac y influenza, live, intranasal, quadrivalent 1 2013 Unknown, Provider [id number] MedImmune, Inc. (MED) complet ed influenza , live, intranasa l, quadrival ent DoD influenza, seasonal, injectable 2012 zzLef t Arm [id number] 141 sanofi pasteur complet ed influenza , seasonal, injectabl e 04/21/13 Given Ambulat ory Pharmac y influenza, seasonal, injectable 2012 [id number] 141 sanofi pasteur complet ed influenza , seasonal, injectabl e 04/21/13 Given Ambulat ory Pharmac y Influenza, seasonal, injectable 11 2012 Unknown, Provider [id number] 141 Sanofi Pasteur ([facility]) complet ed Influenza , seasonal, injectabl e DoD influenza virus vaccine,split 2008 zzLef t Arm [id number] 15 sanofi pasteur complet ed influenza virus vaccine,s plit 03/22/09 Given Ambulat ory Pharmac y influenza virus vaccine,split 2008 [id number] 15 sanofi pasteur complet ed influenza virus vaccine,s plit 03/22/09 Given Ambulat ory Pharmac y influenza virus vaccine, split virus (incl. purified surface antigen)-reti red CODE 1 2008 Unknown, Provider [id number] 15 Sanofi Pasteur ([facility]) complet ed influenza virus vaccine, split virus (incl. purified surface antigen)- retired CODE DoD influenza virus vaccine,split 2007 zzLef t Arm [id number] 15 GlaxoSmithKli ne complet ed influenza virus vaccine,s plit 05/19/08 Given Ambulat ory Pharmac y influenza virus vaccine, split virus (incl. purified surface antigen)-reti red CODE 1 2007 Unknown, Provider [id number] 15 [facility] (SKB) complet ed influenza virus vaccine, split virus (incl. purified surface antigen)- retired CODE DoD influenza virus vaccine,split [facility] [id number] 3AA 15 GlaxoSmithKli ne complet ed influenza virus vaccine,s plit 05/01/07 Given Ambulat ory Pharmac y influenza virus vaccine,split 2006 [id number] 3AA 15 GlaxoSmithKli ne complet ed influenza virus vaccine,s plit 05/01/07 Given Ambulat ory Pharmac y influenza virus vaccine, split virus (incl. purified surface antigen)-reti red CODE 1 2006 Unknown, Provider [id number] 3AA 15 [place] ([facility]) complet ed influenza virus vaccine, split virus (incl. purified surface antigen)- retired CODE DoD influenza virus vaccine,split [facility] [id number] 4AA 15 GlaxoSmithKli ne complet ed influenza virus vaccine,s plit 08/25/06 Given Ambulat ory Pharmac y influenza virus vaccine,split 2006 [id number] 4AA 15 GlaxoSmithKli ne complet ed influenza virus vaccine,s plit 08/25/06 Given Ambulat ory Pharmac y influenza virus vaccine, split virus (incl. purified surface antigen)-reti red CODE 1 2006 Unknown, Provider [id number] 4AA 15 [facility] (SK) complet ed influenza virus vaccine, split virus (incl. purified surface antigen)- retired CODE DoD influenza virus vaccine,split 2004 [facility] Arm [id number] 15 sanofi pasteur complet ed influenza virus vaccine,s plit 06/05/05 Given Ambulat ory Pharmac y influenza virus vaccine, split virus (incl. purified surface antigen)-reti red CODE 1 2004 Unknown, Provider [id number] 15 Sanofi Pasteur ([facility]) complet ed influenza virus vaccine, split virus (incl. purified surface antigen)- retired CODE [facility] influenza virus vaccine, whole virus 2003 [facility] Arm [id number] 16 sanofi pasteur complet ed influenza virus vaccine, whole virus 05/08/04 Given Ambulat ory Pharmac y influenza virus vaccine, whole virus 2003 [id number] 16 sanofi pasteur complet ed influenza virus vaccine, whole virus 05/08/04 Given Ambulat ory Pharmac y influenza virus vaccine, whole virus 1 2003 Unknown, Provider [id number] 16 Sanofi Pasteur ([facility]) complet ed influenza virus vaccine, whole virus DoD influenza virus vaccine, whole virus 2002 16 complet ed influenza virus vaccine, whole virus 05/17/03 Given Ambulat ory Pharmac y influenza virus vaccine, whole virus 2 2002 Unknown, Provider 16 Transcribed (TRS) complet ed influenza virus vaccine, whole virus DoD tuberculin purified protein derivative 2002 [id number] 96 sanofi pasteur complet ed tuberculi n purified protein derivativ e 05/03/03 Given Ambulat ory Pharmac y tuberculin purified protein derivative 2000 [id number] 96 sanofi pasteur complet ed tuberculi n purified protein derivativ e 04/22/01 Given Ambulat ory Pharmac y tuberculin purified protein derivative 2000 zzLef t Arm [id number] 96 sanofi pasteur complet ed Patient Tolerance : Negative Ambulat ory Pharmac y tuberculin skin test; purified protein derivative solution, intradermal 1 2000 Unknown, Provider [id number] 96 Sanofi Pasteur ([facility]) complet ed tuberculi n skin test; purified protein derivativ e solution, intraderm al DoD influenza virus vaccine, whole virus 2000 zzLef t Arm [id number] 16 sanofi pasteur complet ed influenza virus vaccine, whole virus 04/09/01 Given Ambulat ory Pharmac y yellow fever vaccine 2000 zzLef t Arm [id number] 37 sanofi pasteur complet ed yellow fever vaccine 04/09/01 Given Ambulat ory Pharmac y typhoid vaccine, inactivated 2000 zzLef t Arm [id number] [facility] complet ed typhoid vaccine, inactivat ed 04/09/01 Given Ambulat ory Pharmac y yellow fever vaccine 2000 [id number] 37 sanofi pasteur complet ed yellow fever vaccine 04/09/01 Given Ambulat ory Pharmac y typhoid vaccine, inactivated 2000 [id number] [facility] complet ed typhoid vaccine, inactivat ed 04/09/01 Given Ambulat ory Pharmac y influenza virus vaccine, whole virus 2000 [id number] 16 sanofi pasteur complet ed influenza virus vaccine, whole virus 04/09/01 Given Ambulat ory Pharmac y influenza virus vaccine, whole virus 1 2000 Unknown, Provider [id number] 16 Sanofi Pasteur ([facility]MC) complet ed influenza virus vaccine, whole virus DoD yellow fever vaccine 1 2000 Unknown, Provider [id number] Sanofi Pasteur ([facility]MC) complet ed yellow fever vaccine DoD typhoid vaccine, parenteral, other than acetone-kille d, dried 1 2000 Unknown, Provider [id number] [place] (CON) complet ed typhoid vaccine, parentera l, other than acetone-k illed, dried DoD influenza virus vaccine, whole virus 2000 Fabian t Arm [id number] 16 Novartis Pharmaceutica ls complet ed influenza virus vaccine, whole virus 08/12/00 Given Ambulat ory Pharmac y influenza virus vaccine, whole virus 2000 [id number] 16 Novartis Pharmaceutica ls complet ed influenza virus vaccine, whole virus 08/12/00 Given Ambulat ory Pharmac y influenza virus vaccine, whole virus 1 2000 Unknown, Provider [id number] 16 [employer] (EVN) complet ed influenza virus [...] hepatitis A adult vaccine 1998 [id number] [employer] complet ed hepatitis A adult vaccine 05/07/99 Given Ambulat ory Pharmac y influenza virus vaccine, whole virus 1998 [id number] 16 [employer] complet ed influenza virus vaccine, whole virus 05/07/99 Given Ambulat ory Pharmac y hepatitis A adult vaccine 1998 [id number] 52 Merck & Company Inc complet ed hepatitis A adult vaccine 05/07/99 Given Ambulat ory Pharmac y influenza virus vaccine, whole virus 1 1998 Unknown, Provider [id number] 16 [employer] (CON) complet ed influenza virus vaccine, whole [...] ed trivalent polioviru s vaccine, live, oral [facility] tetanus-dipht h toxoids (Td) adult/adol 1989 09 [...] and 2 Lf of diphtheri a toxoid) [facility] Results Combined list of recent chemistry, hematology [...] and other findings. Testing performed by [facility]. [facility] (Listn)ADvineWave EPILAB Chemistr y Vitamin D 25 OH [...] and other findings. Testing performed by [facility]. [facility] (Listn)AEuropean [employer]atteries FSAM EPILAB Chemistr y Triglyceri nura 270 [...] 45 mg/dL Acceptable: > 45 mg/dL [facility] elsei Chemistr y LDL 108 mg/dL 100 - [...] and its performance characteris tics determined by [facility], [facility]. Vaginal source has not been cleared or approved by the U. S. Food and Drug Administrat [employer]. This modified vaginal specimen HPV test is [...] or methodology contact Molecular Department at or [phone]. Unknown Organizat ion AP Specimen s HPV [...] and its performance characteris tics determined by [facility], [facility]. Vaginal source has not been cleared or approved by the U. S. Food and Drug Administrat [employer]. This modified vaginal specimen HPV test is [...] or methodology contact Molecular Department at or [phone]. Unknown Organizat ion AP Specimen s HPV [...] and its performance characteris tics determined by [facility], [facility]. Vaginal source has not been cleared or approved by the U. S. Food and Drug Administrat [employer]. This modified vaginal specimen HPV test is [...] process or methodology contact Molecular Department at [phone] or [phone]. Unknown Organizat ion AP Specimen s AP Cyto MANAGER STATE Patient: Marizol Gilbert Specimen #: [id number] Patholog ist: Keny arriola MD, Lt. Col, [employer], [place] Accessio n: 4 [facility] DEPARTME NT OF PATHOLOG Y [address] [place] [address] Floor [address] [place] [address] Cytology Gynecolo gic Report Patient: Marizol Gilbert Specimen #: [id number] [facility] ID:: [id number] 84 [facility] r #: [id number] Taken: 4 11:22 /Age: 9 1965 [...] Due to cytologi c findings at the Photogrammetric Engineer microsco pe or selectio n of the case for QC, comprehe nsive manual re-scree florencio by a cytotech nologist was required . Elect ronicall y Signed by Keny arriola, , Lt. Col, [facility], Clinical Diagnosi s and History ASCUS neg HPV '16, 07/21; routine screen if neg Prior History Signed Out Specimen # Interpre tation 07/17/19 22 [id number] ASCUS - Atypical Squamous Cells of Undeterm ined Signific ance (Aslguero) 08/15/19 16 [id number] EPITHELI AL CELL ABNORMAL ITIES 02/02/20 11 [id number] 4045 NEGATIVE 05/08/20 09 [id number] NEGATIVE 05/11/20 08 [id number] 61146 NEGATIVE CPT Codes: A; 40403, 65104 The Pap test is a screenin g [...] eAvg Glucose 120 mg/dL 12/08 [facility] elsie Chemistr y eGFR CKD EPI [...] Severe decrease <15 Kidney failure [facility] elsie Chemistr y Phosphorus 3.5 mg/dL 2.3 - 4.7 09/08 N [facility] elsie Chemistr y CO2 25 mmol/L 22 - 29 09/08 N [facility] elsie Chemistr y Chloride 104 mmol/L 98 - 107 09/08 N [facility] elsie Chemistr y Glucose Lvl 131 mg/dL 74 - 99 09/08 H [facility] elsie Chemistr y Creatinine Level 0.80 mg/dL 0.57 - 1.11 09/08 N [facility] elsie Chemistr y Sodium 140 mmol/L 136 - 145 09/08 N [facility] elsie Chemistr y Potassium Lvl 3.8 mmol/L 3.5 - 5.1 09/08 N [facility] elsie Chemistr y Albumin 4.10 g/dL 3.50 - 5.20 09/08 N [facility] elsie Chemistr y AGAP 11.00 0.00 - 15.00 09/08 N [facility] elsie Chemistr y BUN/Creat Ratio 15 mg/dL 12 - 20 09/08 N [facility] elsie Chemistr y BUN 12 mg/dL 7 - 20 09/08 N [facility] elsie Chemistr y Calcium 9.7 mg/dL 8.4 - 10.2 09/08 N [facility] elsie Hematolo gy Basophil % Auto [...] 40.0 09/08 N [facility]sie Hematolo gy Crisp Absolute 0.6 x10^3/mc L 0.2 - 0.8103 [...] 46.0 - 77.0 09/08 L [facility] elsie Hematolo gy ESR Auto Plus [...] to a high degree of variability . [facility]sie Hematolo gy Platelets 328.0 x10^3/mc L 150.0 - 450.0103 09/08 N [facility] elsie Hematolo gy MPV 9.3 fL 7.4 - 10.4 09/08 N [facility] elsie Hematolo gy RDW 13.2 % 11.0 - 14.9 09/08 N [facility] elsie Hematolo gy RBC 5.0 x10^6/mc L 3.6 - 5.0106 09/08 N [facility] elsie Hematolo gy WBC 9.6 x10^3/mc L 4.0 - 11.0103 09/08 N [facility] elsie Hematolo gy Hematocrit 43 % 34 - 46 09/08 N [facility] elsie Hematolo gy MCH 28 pg [...] PANEL contains Centromere, dsDNA, Betsey-1, Ribosomal P, PROJECT INTERN/Sm, Ro-52, Scl-70, Sm, SS-A and SS-B. The performance characteris tics of this assay have not been evaluated for use in pediatric populations . Methodology : Indirect Immunofluor escence Assay (IIFA) 5600A-USA FSAM EPILAB Immunolo gy/Serol ogy Anti-SSA/R o Ab Negative 16 (3/12/24 2:56 PM) 09/08 N Interpretiv e Data: The performance characteris tics of this assay have not been evaluated for use in pediatric populations . METHODOLOGY : Enzyme-Link ed Immunosorbe nt Assay (FCO). [facility] (Listn)A-[employer] Immunolo gy/Serol ogy Anti-SSB/L a Ab Negative 17 (09/09/23 2:56 PM) 09/08 N Interpretiv e Data: The performance characteris tics of this assay have not been evaluated for use in pediatric populations . METHODOLOGY : Enzyme-Link ed Immunosorbe nt Assay (FCO). [facility] (Listn)A-USA Red [employer]ry[employer] Miscella neous Sendouts Test Name. urine culture 09/08-375 th [facility] elsie Miscella neous Sendouts Misc Specimen Source? urine 09/085A-375 th [facility]sie Miscella neous Sendouts Req Order?. [id number] 09/085A-375 th [facility]sie Miscella neous Sendouts Misc Result.LC See Images 09/08 Interpretiv e Data: Attention [facility]: This order is to be processed manually. No electronic order will be sent. 5A-375 th [facility] elsie Miscella neous Sendouts IgM, Total.LC 135 mg/dL 09/08 Result Comment: Performed At: [address] [facility] [address] [id number] Salvador Yap PhD Ph:[phone] 5A-375 th [facility] elsie Miscella neous Sendouts IgA, Total.LC 140 mg/dL 09/085A-375 th [facility]sie Miscella neous Sendouts IgG, Total.LC 1121 mg/dL 09/085A-375 th [facility] elsie Urinalys is UA Protein Negative mg/dL 09/08 N 5A-375 th [facility] elsie Urinalys is UA pH 6.0 *NA* (09/09/23 2:56 PM) 5 - 8 09/085A-375 th [facility] Urinalys is UA Nitrite Negative (09/09/23 2:56 PM) 09/08 N 5A-375 [facility] Urinalys is UA Leuk Esterase Small *ABN* (09/09/23 2:56 PM) 09/08 A 0055A-375 [facility] Urinalys is UA Ketones Negative mg/dL 09/08 N 375 [facility] Urinalys is UA Glucose Negative mg/dL 09/08 N [facility] Urinalys is UA Epi Squam 5-9 09/08- [facility] Urinalys is UA Color Yellow *NA* (09/09/23 2:56 PM) 09/08- [facility] Urinalys is UA Clarity Clear *NA* (09/09/23 2:56 PM) 09/08- [facility] Urinalys is UA Blood Negative (09/09/23 2:56 PM) 09/08 N [facility] Urinalys is UA Bili Negative (09/09/23 2:56 PM) 09/08 N 0055A-375 [facility] Urinalys is UA Bacteria 1+ *ABN* (09/09/23 2:56 PM) 09/08 A 5A-375 [facility]inalys is UA WBC 3-4 /HPF 09/08 N [facility] Urinalys is UA Urobilinog en 0.2 E.U./dL 0.2 - 1.0.. 09/08 N 005375 [facility] Urinalys is UA Spec Chinle 1.020 1.001 - 1.035 09/08 N 005375 [facility] Urinalys is UA RBC 0-2 /HPF 09/08 N [facility] elsie Vital Signs Combined [...] included; 2) Encounters from the [facility] facilities going backup to 280 months. Location Location Details Encounter Type Encounter Number Reason For Visit Attending Provider ADM Date DC Date Status Disposition Source [facility]) OUTPATIENT [id number] SHADI CONCEPCION 03/16 Released w/o Limitations [facility]) [facility]) OUTPATIENT [id number] follow up on EDUARDO Wong 04/01 Released w/o Limitations [facility]) [facility]) OUTPATIENT [id number] f/u on allergi EDUARDO Ponce 05/03 Released w/o Limitations [facility]) [facility]) OUTPATIENT [id number] bronchi al problem EDUARDO MACIAS 05/23 Released w/o Limitations [facility]) [facility]) TELE CONSULT [id number] patient called about asthma EDUARDO MACIAS 05/23 [employer] [facility]) [facility]) OUTPATIENT [id number] f/u asthma EDUARDO MACIAS 06/06 Released w/o Limitations [facility]) [facility]) OUTPATIENT [id number] referra l and excema EDUARDO MACIAS 08/23 Released w/o Limitations [facility]) [facility]) OUTPATIENT [id number] CONSULT SAVANNAH MCCOLLUM 10/31 Released w/o Limitations [facility]) [facility] Medical [facility]) OUTPATIENT [id number] F-up for Medicat ion SAVANNAH MCCOLLUM Tc 01/17 Released w/o Limitations [facility]immobile [facility]) [address] [place] [address]([facility]) TELE CONSULT [id number] Refill DANIEL PRUETT Rachael 02/[address] [place] [address]([facility]) [address] [place] [address]([facility]) TELE CONSULT [id number] needs referra EDUARDO Farah 02/[address] [place] [address] [address] [place] [address]([facility]) TELE CONSULT [id number] referra JOSE Stoddard V 11/[address] [place] [address]([facility]) [address] [place] [address] Christopher [facility])([facility] Practice Non-GME FHI1) TELE CONSULT [id number] MED REFILL TRINIDAD LICEA 03/[address] [place] [address] Christopher [facility])(F amily Practic e Non-GME FHI1) [address] [place] [address] Christopher [facility])([facility] Practice Non-GME FHI1) OUTPATIENT [id number] renewal allergy , celexa meds SHERICE CLARKE 04/10 Released w/o Limitations [address] [place] [address] Christopher [facility])(F amily Practic e Non-GME FHI1) [address] [place] [address] Christopher [facility])([facility] Practice Non-GME FHI1) TELE CONSULT [id number] REFILL- -EDUARDA TAVERA 11/[address] [place] [address] Christopher [facility])(F amily Practic e Non-GME FHI1) [address] [place] [address] Christopher [facility])([facility] Practice Non-GME FHI2) OUTPATIENT [id number] SELENE ZARATE 11/12 Released w/o Limitations [address] [place] [address] Christopher [facility])(F amily Practic e Non-GME FHI2) [address] [place] [address] Christopher [facility])([facility] Practice Non-GME FHI1) TELE CONSULT [id number] Med refill - PCM EDUARDA Tavera 01/[address] [place] [address] Christopher [facility])(F amily Practic e Non-GME FHI1) [address] [place] [address] Christopher [facility]) OUTPATIENT [id number] chest congest ion not getting any better SONIDOMICHELE RIZO Rachael 02/24 Released w/o Limitations [address] [place] [address] Christopher B ([facility])(F amily Practic e Non-GME FHI1) [address] [place] [address] Christopher B ([facility])([facility] Practice Non-GME FHI2) OUTPATIENT [id number] severe chest congest ion/see n before no improve mandy NATIVIDAD NAVARRO Arcenio 03/17 Released w/o Limitations [address] [place] [address] Christopher B [facility])(F amily Practic e Non-GME FHI2) [address] [place] [address] Christopher B ([facility])([facility] Practice Non-GME FHI1) OUTPATIENT [id number] persist ant cold and DIANE Jerry 05/12 Released w/o Limitations [address] [place] [address] [employer] ([facility])(F amily Practic e Non-GME FHI1) [address] [place] [address] Christopher B [facility] F[facility]1) TELE CONSULT [id number] CHEST X-SARA, EDUARDA 05/[address] [place] [address] Christopher B [facility])(F amily Practic e Non-GME FHI1) [address] [place] [address] Christopher B [facility] Non-GME FHI1) OUTPATIENT [id number] flu shot ESTEFANY RICARDO Arcenio 08/25 Released w/o Limitations [address] [place] [address] Christopher B [facility])(F amily Practic e Non-GME FHI1) [address] [place], [place] [address]B [facility]) OUTPATIENT [id number] chest congest ion RADHAVICKI DUDLEY Sally 09/08 Released w/o Limitations [address] [place] [address] [employer] ([facility])(A mb Care Clinic) [address] [place] [address] [employer] ([facility])([place] laryngolo gy) OUTPATIENT [id number] CHRONIC SINUSIT IS JASON RAMIREZ 11/04 Released w/o Limitations [address] [place] [address] [employer] ([facility])(O tolaryn gology) [address] [place] [address] [employer] [facility] Non-GME FHI1) OUTPATIENT [id number] breathi ng problem s ABE GUZMAN 11/05 Released w/o Limitations [employer] [facility] [employer] ([facility])(F amily Practic e Non-GME FHI1) Medical Group [facility] [employer] ([facility])(All ergy Resource Sharing) OUTPATIENT [id number] NASAL POLYPS REBECCA FULLER 11/12 Released w/o Limitations [facility] Christopher [employer] ([facility])(A llergy Resourc e Sharing ) Medical [facility] Christopher [employer])([facility] bhaskar Practice Non-GME FHI1) OUTPATIENT [id number] FOOT PAIN H#[phone] ABE GUZMAN 12/30 Released w/o Limitations [facility] Christopher [employer]OB ([facility])(F amily Practic e Non-GME FHI1) [address] [place] [address] Christopher B ([facility])([facility] bhaskar Practice Non-GME FHI1) TELE CONSULT [id number] refill med - LEAH Lange 01/20[facility] Christopher [facility] ([facility])(F amily Practic e Non-GME FHI1) [facility] Medical [facility] Christopher [facility] ([facility])(All ergy Resource Sharing) OUTPATIENT [id number] f/u meds,tr eatment REBECCA FULLER 04/02 Released w/o Limitations [facility] Christopher [facility] ([facility])(A llergy Resourc e Sharing ) [address] [place] [address] Christopher [facility])(Opt ometry) OUTPATIENT [id number] annual eye exam AVELINA ARENAS 04/15 Released w/o Limitations [facility] Christopher [employer] ([facility])(O ptometr y) [address] [place] [address] Christopher B [facility] Non-GME FHI1) OUTPATIENT [id number] change meds from previou s pcm ABE GUZMAN 05/01 Released w/o Limitations [facility] Christopher [employer] ([facility])(F amily Practic e Non-GME FHI1) [address] [place] [address] [employer] [facility])([facility] bhaskar Practice Non-GME FHI2) TELE CONSULT [id number] CYRUS ORO 05/19[facility] [employer] ([facility])(F amily Practic e Non-GME FHI2) [address] [place] [address])([facility] bhaskar Practice Non-GME FHI1) OUTPATIENT [id number] asthma ABE GUZMAN 07/14 Released w/o Limitations [address] [place] [address])(F amily Practic e Non-GME FHI1) [address] [place] [address])([facility] bhaskar Practice Non-GME FHI1) OUTPATIENT [id number] pt is having hearing problem s [phone] KEDAR JAMES 08/19 Released w/o Limitations [address] [place] [address])(F amily Practic e Non-GME FHI1) [address] [place] [address])(Sco tt Internal Medicine Tm) OUTPATIENT [id number] KNOT UNDER RT.EAR, PAIN/SW TERENCE, ATC,CB LORETTA LOYOLA CPT 02/09 Released w/o Limitations [address] [place] [address])(S cott Interna l Medicin e Tm) [address] [place] [address])([facility] Non-GME FHI2) TELE CONSULT [id number] refill med/EDUARDA Hall 02/[address] [place] [address])(F amily Practic e Non-GME FHI2) [address] [place] [address])([facility] Non-GME FHI1) OUTPATIENT [id number] chest congest DIANE TRISTAN 03/07 Released w/o Limitations [address] [place] [address])(F amily Practic e Non-GME FHI1) [address] [place] [address])([facility] bhaskar Practice Non-GME FHI2) TELE CONSULT [id number] RX Renewal - SUPPLY CHAIN COORDINATOR DARBY Linares 03/[address] [place] [address])(F amily Practic e Non-GME FHI2) [address] [place] [address])([facility] bhaskar Practice Non-GME FHI1) OUTPATIENT [id number] fol anxiety meds KRIS FLORES 03/18 Released w/o Limitations [address] [place] [address])(F amily Practic e Non-GME FHI1) [employer] [facility] ([facility])([facility] bhaskar Practice Non-GME FHI1) TELE CONSULT [id number] Book well Woman's exam KRIS FLORES 04/19 [facility] ([facility])(F amily Practic e Non-GME FHI1) [employer] [facility] [employer] ([facility])([facility] bhaskar Practice Non-GME FHI1) OUTPATIENT [id number] well exam KRIS FLORES 05/03 Released w/o Limitations [employer] [facility] ([facility])(F amily Practic e Non-GME FHI1) [facility] [employer] ([facility])([facility] bhaskar Practice Non-GME FHI1) TELE CONSULT [id number] pap result KRIS FLORES 05/16 [facility] ([facility])(F amily Practic e Non-GME FHI1) [facility] ([facility])([facility] bhaskar Practice Non-GME FHI1) OUTPATIENT [id number] f/u bp KRIS FLORES 05/19 Released w/o Limitations [facility] ([facility])(F amily Practic e Non-GME FHI1) [facility] Christopher SHADYB [facility])(Flo tt [facility] Team 3) TELE CONSULT [id number] Referra DARBY Encarnacion NP 09/27 [employer] [facility] [employer] ([facility])(S [facility] Team 3) [facility] [employer] ([facility])([facility]) OUTPATIENT [id number] new pt needs chart DARIUSZ JAUREGUI Liliana 10/27 Released w/o Limitations [facility] [employer] ([facility])([facility]) [facility] [employer] ([facility])([facility] tt [facility] Team 3) OUTPATIENT [id number] REFERRA L FOR DEVELOPMENT ENG RAY [phone] KRIS FLORES 11/22 Released w/o Limitations [facility] [employer] ([facility])(S cott [facility] Team 3) [facility] [employer] [facility])(Flo [facility] Team 3) TELE CONSULT [id number] call back lab results DARBY STEWARD 12/27 [employer] ([facility])([facility] Team 3) [employer] ([facility])([facility] Team 3) OUTPATIENT [id number] allergi sai FONSECADANIEL CHAUDHARY Sally 02/07 Released w/o Limitations [employer] ([facility])([facility] Team 3) [facility] [employer] ([facility])([facility] Team 3) OUTPATIENT [id number] taryn issue - [phone] KRIS FLORES 03/22 Released w/o Limitations [employer] ([facility])([facility] Team 3) [facility] [employer] ([facility])([facility] Team 3) TELE CONSULT [id number] after hours call KRIS FLORES 03/30 [employer] ([facility])([facility] Team 3) [facility] [employer] ([facility])([facility] Team 3) TELE CONSULT [id number] ER Visit. ALEK RODRIGUEZ 03/30 [employer] ([facility])([facility] Team 3) [facility] [employer] ([facility])([facility] Team 3) OUTPATIENT [id number] F/U HYPERTE NSION PER KRIS TIMMONS 04/05 Released w/o Limitations [employer] ([facility])([facility] Team 3) [facility] [employer] ([facility])(Rehabilitation Program Coordinator ecology) OUTPATIENT [id number] regular cycle interva ls less than 21 days LACIE MARINO 04/14 Released w/o Limitations [employer] ([facility])(G joseph gy) [facility] [employer] ([facility])([facility] Team 3) TELE CONSULT [id number] lab results ALEK RODRIGUEZ 04/18 [employer] ([facility])([facility] Team 3) [facility] [employer] ([facility])([facility] Team 3) TELE CONSULT [id number] audiono ellie KRIS FLORES 04/[address] [place] [address] Christopher [employer] [facility])(S [facility] Team 3) [address] [place] [address] Christopher Anand [facility])(Rehabilitation Program Coordinator ecology) OUTPATIENT [id number] annual wwe per LACIE Hernandez 05/02 Released w/o Limitations [address] [place] [address] Christopher [employer] ([facility])(G ynecolo gy) [address] [place] [address] Christopher [employer] [facility])(Opt ometry) OUTPATIENT [id number] routine eye exam NATALIE GOMEZ Alberto Montez 06/02 Released w/o Limitations [address] [place] [address] Christopher [employer] [facility])(O ptometr y) [address] [place] [address] Christopher [employer] [facility])([facility] Team 3) OUTPATIENT [id number] cyst on right wrist [phone] KRIS FLORES 10/13 Released w/o Limitations [address] [place] [address] Christopher [employer] [facility])([facility] Team 3) [address] [place] [address] [facility] [employer] [facility])([facility] Team 3) TELE CONSULT [id number] med refill- Joseer ALEK RODRIGUEZ 12/[address] [place] [address] Christopher [employer] [facility])([facility] Team 3) [address] [place] [address] [facility] [employer] [facility])([facility] Team 3) OUTPATIENT [id number] f/u HTN, Hyperli pidemia , med refill KRIS FLORES 12/28 Released w/o Limitations [address] [place] [address] Christopher [employer] [facility])([facility] Team 3) [address] [place] [address] [facility] [employer] [facility])([facility] Team 3) OUTPATIENT [id number] smoking issues/ prescri ptions [phone] KRIS FLORES 02/23 Released w/o Limitations [address] [place] [address] [facility] [employer] [facility])([facility] Team 3) [address] [place] [address] Christopher CARUSOB [facility])([facility] Team 3) TELE CONSULT [id number] Stelal - Pt request a new referra l for ENT to see another provide r. [phone] ALEK RODRIGUEZ 05/16 [employer] ([facility])([facility] Team 3) [address] [place] [address] [employer] [facility])([facility] Team 3) OUTPATIENT [id number] pain right knee [phone] KRIS FLORES 08/31 Released w/o Limitations [address] [place] [address] [employer] ([facility])([facility] Team 3) [address] [place] [address] [employer] [facility])([facility] Team 3) TELE CONSULT [id number] rad results KRIS FLORES 09/[address] [place] [address] [employer] ([facility])([facility] Team 3) [address] [place] [address] [employer] [facility])([facility] Team 3) TELE CONSULT [id number] Discuss Mayank Flores cad MARIZOL Robles 11/[address] [place] [address] [employer] ([facility])([facility] Team 3) [address] [place] [address] Christopher B [facility])([facility] Team 3) OUTPATIENT [id number] pap [phone] KRIS FLORES 01/28 Released w/o Limitations [address] [place] [address] [employer] ([facility])([facility] Team 3) [address] [place] [address] [employer] [facility])([facility] Team 3) TELE CONSULT [id number] rx refill on lisinop ril 10 mg [phone] Stella CAD [facility] ROSANNE SOARES 03/[address] [place] [address] [employer] [facility])([facility] Team 3) [address] [place] [address] [employer] [facility])([facility] Team 3) TELE CONSULT [id number] Notes Entered by: ABDIRAHMAN CROSS 19 Aug 2011 0716 ------- ------- ------- ------- -- Needs f/u with breast surgeon ROSANNE SOARES 08/[address] [place] [address] [employer] ([facility])([facility] Team 3) [address] [place] [address] [employer] [facility])([facility] Team 3) TELE CONSULT [id number] Notes Entered by: NATI JIMENEZ 09 Oct 2011 1023 ------- ------- ------- ------- -- Toe pain and constantine Cross cad tlt ROSANNE SOARES 10/[address] [place] [address])([facility] Team 3) [address] [place] [address])([facility] Team 3) OUTPATIENT [id number] Pain to base of left first toe for 1-2 months ABDIRAHMAN CROSS 10/15 Released w/o Limitations [address] [place] [address])([facility] Team 3) [address] [place] [address])(War rior Op Med Cln Tm A Ad) TELE CONSULT [id number] Notes Entered by: DEVYN GASPAR 22 Oct 2011 1527 ------- ------- ------- ------- -- Need clinica l notes faxed for ROSANNE Maria 10/[address] [place] [address])(W arrior Op Med Cln Tm A Ad) [address] [place] [address])([facility] Team 3) TELE CONSULT [id number] Notes Entered by: AMARILYS PERKINS 12 Nov 2011 1309 ------- ------- ------- ------- -- Referra l for Dr Harris@ [facility] attn alessio pt seen already [phone] ROSANNE SOARES 11/[address] [place] [address])([facility] Team 3) [address] [place] [address])([facility] Team 3) TELE CONSULT [id number] Notes Entered by: SAVANNAH WELLS 12 Nov 2011 1337 ------- ------- ------- ------- -- Tcon for emergen cy referra l Dr Cross ph [phone] cad dmj ROSANNE SOARES 11/[address] [place] [address])([facility] 3) [address] [place] [address])([facility] 3) TELE CONSULT [id number] Notes Entered by: ROSANNE SOARES 30 Dec 2011 0858 ------- ------- ------- ------- -- ROSANNE Feliz 12/[address] [place] [address])([facility] 3) [address] [place] [address])(War rior Op Med Cln Tm A Ad) TELE CONSULT [id number] Notes Entered by: NATI JIMENEZ 30 Dec 2011 1434 ------- ------- ------- ------- -- ROSANNE Hernandez 12/[address] [place] [address])(W arrior Op Med Cln Tm A Ad) [address] [place] [address])([facility] Team 3) TELE CONSULT [id number] Notes Entered by: KANA GARCIA 20 Mar 2012 0941 ------- ------- ------- ------- -- Network Results - SURGERY 10/25/11 ABDIRAHMAN CROSS 03/[address] [place] [address])([facility] 3) [address] [place] [address])(Opt ometry) OUTPATIENT [id number] routine eye exam TRISTIAN GIRALDO 04/27 Released w/o Limitations [address] [place] [address])(O ptometr y) [address] [place] [address])([facility] 3) TELE CONSULT [id number] Notes Entered by: SONYA CACERES 24 Jul 2012 1400 ------- ------- ------- ------- -- Network Results -OTORHI NOLARY 2 ABDIRAHMAN CROSS 07/[address] [place] [address])([facility] 3) [address] [place] [address])([facility] 3) OUTPATIENT [id number] cist on wrist growing - [phone] KRIS FLORES 08/03 Released w/o Limitations [address] [place] [address] Group Christopher [facility]S lara [facility] Team 3) [address] [place] [address] Christopher [facility])(Fam bhaskar Med Tm B Non-AD BCC) TELE CONSULT [id number] Notes Entered by: Sally FORRESTER 10 Aug 2012 0825 ------- ------- ------- ------- -- Urgent care KRIS FORRESTER 08/[address] [place] [address] Group Christopher [facility])(F amily Med Tm B Non-AD BCC) [address] [place] [address] Christopher [facility])(Ruperto rior Op Med Cln Tm A Ad) TELE CONSULT [id number] Notes Entered by: STEPHANIE WATKINS 13 Aug 2012 1200 ------- ------- ------- ------- -- Network Results -URGENT CARE 3 KRIS FORRESTER 08/[address] [place] [address] Group Christopher [facility])(Gem arrior Op Med Cln Tm A Ad) [address] [place] [address] Christopher [facility])([facility] Team 3) TELE CONSULT [id number] Notes Entered by: KRIS FLORES 24 Aug 2012 1600 ------- ------- ------- ------- -- Lab results ABIEL MACKEY 08/24 Referred for Appointment [facility] Group Christopher [facility])(Trinidad bermudez [facility] Team 3) [address] [place] [address] Christopher [facility])([facility] Team 3) TELE CONSULT [id number] Notes Entered by: Liliana QUIÑONES 07 Oct 2012 1245 ------- ------- ------- ------- -- Patient wants to go back on celexa [id number] RM Herring 10/[address] [place] [address] Group Christopher CARUSOB ([facility])(S [facility] Team 3) [address] [place] [address] Group Christopher CARUSOB [facility])([facility] 3) OUTPATIENT [id number] pt wants to go back on celexa after 4 years. KRIS FLORES 10/13 Released w/o Limitations [address] [place] [address] Group [employer] ([facility])(S [facility] Team 3) [address] [place] [address] [employer] [facility])(Fam bhaskar Med Tm B Non-AD BCC) TELE CONSULT [id number] Notes Entered by: JOLYNN HSU 21 Oct 2012 1400 ------- ------- ------- ------- -- Network Results -ORTHOP EDICS 3 KRIS FLORES 10/[address] [place] [address] Group Christopher CARUSOB ([facility])(F amily Med Tm B Non-AD BCC) [address] [place] [address] Christopher CARUSOB [facility])([facility] 3) TELE CONSULT [id number] Notes Entered by: Amanda QUIÑONES 16 Nov 2012 1031 ------- ------- ------- ------- -- Med refill/ Stella /[phone] only 1 pill left GOLDY SHERWOOD 11/[address] [place] [address] Group Christopher CAR[facility]OB ([facility])([facility] 3) [address] [place] [address] Christopher CAR[facility]OB [facility])([facility] 3) OUTPATIENT [id number] Medicat ion refill KRIS FLORES 11/26 Released w/o Limitations [address] [place] [address] Group Christopher [facility] ([facility])([facility] 3) [facility] [employer] ([facility])([facility] 3) OUTPATIENT [id number] skin check (sun spot) MAU SAMUEL 02/05 Released w/o Limitations [address] [place] [address] Group [employer] ([facility])([facility] 3) [address] [place] [address] [employer] [facility])([facility] 3) OUTPATIENT [id number] upper resp infecti on [phone] PITTMNA KRIS M 03/08 Released w/o Limitations [address] [place] [address] Group Christopher B [facility])([facility] 3) [address] [place] [address])([facility] 3) TELE CONSULT [id number] Notes Entered by: Sally FORRESTER 10 Mar 2013 0633 ------- ------- ------- ------- -- x-ray ST PITTMAN KRIS M 03/[address] [place] [address] Christopher B [facility])([facility] 3) [address] [place], [place] [address]B [facility])([facility] 3) TELE CONSULT [id number] Notes Entered by: ROSANNE SOARES 10 Mar 2013 0712 ------- ------- ------- ------- -- Med refills MICARE message ROSANNE SOARES 03/[address] [place] [address])([facility] 3) [address] [place] [address] Christopher B [facility])([facility] 3) OUTPATIENT [id number] pt refused ER, inhaler taken and no breathi ng issue now/[phone] MAU SAMUEL 03/24 Released w/o Limitations [address] [place], [place] [address]B ([facility])([facility] 3) [address] [place], [place] [address]B [facility])(All ergy Resource Sharing) OUTPATIENT [id number] BRONCHI TIS ABIEL ELLINGTON 04/06 Released w/o Limitations [address] [place], [place] [address]B [facility])(A llergy [facility] e Sharing ) [address] [place], [place] [address]B [facility])([facility] 3) TELE CONSULT [id number] Notes Entered by: RASHEED FLOWER 06 May 2013 0930 ------- ------- ------- ------- -- ER F/U Torito Flores - SHERICE HELMS 05/[address] [place] [address] [employer] ([facility])([facility] 3) [facility] Medical [facility] Christopher CARUSOB [facility])([facility] Team 3) OUTPATIENT [id number] asthma flare up, cough, wheezin g YESICA SHIELDS S 05/21 Released w/o Limitations [address] [place] [address] Christopher CARUSOB ([facility])([facility] 3) [address] [place] [address] Christopher CARUSOB [facility])(War rior Op Med Cln Tm A Ad) TELE CONSULT [id number] Notes Entered by: ASHLEIGH ECHEVERRIA 18 Jun 2013 1017 ------- ------- ------- ------- -- New rx for Citalop tanya/sto hler/61 [phone] [facility] ISAK MCKEON 06/[address] [place] [address] Christopher CAR[facility])(W arrior Op Med Cln Tm A Ad) [address] [place] [address] Christopher CAR[facility])(War rior Op Med Cln Tm A Ad) OUTPATIENT [id number] f/u meds LENNY SWENSON 06/22 Released w/o Limitations [address] [place] [address] Christopher [facility])(W arrior Op Med Cln Tm A Ad) [address] [place] [address] Christopher CAR[facility])([facility] Team 3) OUTPATIENT [id number] f/u for asthma appt x 2weeks ago with SUPPLY CHAIN COORDINATOR Álvaro ld/618. [phone] YESICA SHIELDS 07/02 Released w/o Limitations [address] [place] [address] Christopher CARUSOB [facility])([facility] 3) [address] [place] [address] [employer] [facility])(Fam bhaskar Med Tm B Non-AD BCC) OUTPATIENT [id number] double vision since 0830 this morning [id number] ABDIRAHMAN CROSS 12/21 Immediate Referral [address] [place] [address] Christopher SHADYB [facility])(F amily Med Tm B Non-AD BCC) [address] [place] [address] [employer] [facility])(War rior Op Med Cln Tm A Ad) TELE CONSULT [id number] Notes Entered by: NATI JIMENEZ 29 Dec 2013 1523 ------- ------- ------- ------- -- ER follow up for possibl e MITCHELL Swenson KRIS MAGDALENO 12/[address] [place] [address])(W arrior Op Med Cln Tm A Ad) [address] [place] [address])(War rior Op Med Cln Tm A Ad) OUTPATIENT [id number] ER follow up for MITCHELL LENNY SWENSON 01/10 Released w/o Limitations [address] [place] [address])(W arrior Op Med Cln Tm A Ad) [address] [place] [address])(War rior Op Med Cln Tm A Ad) TELE CONSULT [id number] Notes Entered by: ARETHA SWENSON 15 Feb 2014 1459 ------- ------- ------- ------- -- Hyperli pidemia LENNY SWENSON 02/[address] [place] [address])(W arrior Op Med Cln Tm A Ad) [address] [place] [address])(War rior Op Med Cln Tm A Ad) OUTPATIENT [id number] F/u Cholest bogdan LENNY SWENSON 02/23 Released w/o Limitations [address] [place] [address])(W arrior Op Med Cln Tm A Ad) [address] [place] [address])(Med ication Refill Clinic) TELE CONSULT [id number] Notes Entered by: JACQUELINE CAMEJO 26 Jul 2014 0915 ------- ------- ------- ------- -- Med refill/ felice/ HUMBERTO HAGAN 07/[address] [place] [address])(Tc loyd on Refill Clinic) [address] [place] [address])(War rior Op Med Cln Tm A Ad) TELE CONSULT [id number] Notes Entered by: JACQUELINE CAMEJO 31 Aug 2014 1215 ------- ------- ------- ------- -- ER visit/N ew referra rg livermo n/ KRIS MAGDALENO 08/[address] [place] [address])(W arrior Op Med Cln Tm A Ad) [address] [place] [address])(War rior Op Med Cln Tm A Ad) TELE CONSULT [id number] Notes Entered by: DARRIUS FAUST 19 Sep 2014 1239 ------- ------- ------- ------- -- New Refer arcenio - Livermo n - [phone] SHERICE HELMS 09/[address] [place] [address])(W arrior Op Med Cln Tm A Ad) [address] [place] [address])(War rior Op Med Cln Tm A Ad) TELE CONSULT [id number] Notes Entered by: SONYA CACERES 20 Sep 2014 0914 ------- ------- ------- ------- -- Network Results -OTANTHONY ELLIOTT 09/19/14 HUMBERTO HAGAN 09/[address] [place] [address])(W arrior Op Med Cln Tm A Ad) [address] [place] [address])(War rior Op Med Cln Tm A Ad) TELE CONSULT [id number] Notes Entered by: KANA GARCIA 20 Dec 2014 0742 ------- ------- ------- ------- -- Network Results -OTOLAR YNGOLOG Y 12/19/14 HUMBERTO HAGAN 12/[address] [place] [address])(W arrior Op Med Cln Tm A Ad) [address] [place] [address])(War rior Op Med Cln Tm A Ad) TELE CONSULT [id number] Notes Entered by: Amanda QUIÑONES 24 Jan 2015 0752 ------- ------- ------- ------- -- UC FU symptom persist s/Liver mon/[phone] DONYA WALL 01/24 Referred for Appointment [address] [place] [address])(W arrior Op Med Cln Tm A Ad) [address] [place] [address])(War rior Op Med Cln Tm A Ad) OUTPATIENT [id number] [facility] asthma follow up. HUMBERTO HAGAN 01/24 Released w/o Limitations [address] [place] [address])(W arrior Op Med Cln Tm A Ad) [address] [place] [address])(Med ication Refill Clinic) TELE CONSULT [id number] Notes Entered by: RASHEED FLOWER 31 Mar 2015 0901 ------- ------- ------- ------- -- Rx Renewal - Livermo n - SABA NAVARRO 03/[address] [place] [address])(Tc loyd on Refill Clinic) [address] [place] [address])(War rior Op Med Cln Tm A Ad) TELE CONSULT [id number] Notes Entered by: ISH CALVIN 04 Apr 2015 1702 ------- ------- ------- ------- -- Network Results - Radiolo gy 5 HUMBERTO HAGAN 04/[address] [place] [address])(W arrior Op Med Cln Tm A Ad) [address] [place] [address])(War rior Op Med Cln Tm A Ad) TELE CONSULT [id number] Notes Entered by: KAIT SOLIMAN ELS 17 Apr 2015 1347 ------- ------- ------- ------- -- Lab Request //Liver mon//[phone] DONYA WALL 04/17 Referred for Appointment [address] [place] [address])(W arrior Op Med Cln Tm A Ad) [employer] Christopher [facility])(War rior Op Med Cln Tm A Ad) OUTPATIENT [id number] general physica l//[phone]. [phone] DEBBIEHUMBERTO RUIZ Mary Anne 05/03 Released w/o Limitations [facility])(W arrior Op Med Cln Tm A Ad) [address] [place] [address] Group [facility])(Fam bhaskar Med Tm B Non-AD BCC) TELE CONSULT [id number] Notes Entered by: West BREEN 16 Jun 2015 1606 ------- ------- ------- ------- -- Network Results OTOLARY NGOLOGY 015 DB NILO GUAJARDO 06/[address] [place] [address] Group [facility])(F amily Med Tm B Non-AD BCC) [address] [place] [address])(War rior Op Med Cln Tm A Ad) OUTPATIENT [id number] chest congest ion x 3 days [id number] GOLDY BUCHANAN 08/02 Released w/o Limitations [address] [place] [address] Group [facility])(W arrior Op Med Cln Tm A Ad) [address] [place] [address])(Rehabilitation Program Coordinator ecology) OUTPATIENT [id number] annual wwe/dis cuss prolaps e - [phone] J LUIS STEELE 08/09 Released w/o Limitations [address] [place] [address])(Omaira ruiz gy) [address] [place] [address])(Rehabilitation Program Coordinator ecology) TELE CONSULT [id number] Notes Entered by: JOSE STEELE 09 Aug 2015 1612 ------- ------- ------- ------- -- Test results RICHAR STARK 08/[address] [place] [address] Group [facility])(G joseph gy) [address] [place] [address])(Rehabilitation Program Coordinator ecology) TELE CONSULT [id number] Notes Entered by: JOSE STEELE 31 Oct 2015 1417 ------- ------- ------- ------- -- Test results YO EPPS 10/[address] [place] [address])([facility]) [address] [place] [address])(Rehabilitation Program Coordinator ecology) OUTPATIENT [id number] [facility] [phone] J LUIS STEELE 10/31 Released w/o Limitations [address] [place] [address])([facility]) [address] [place] [address])([facility] bhaskar Med Tm B Non-AD BCC) TELE CONSULT [id number] Notes Entered by: RASHEED FLOWER 07 Nov 2015 1348 ------- ------- ------- ------- -- Sx: Cough, congest ion, headach [facility] e - * DONYA WALL 11/06 Referred for Appointment [address] [place] [address])( amily Med Tm B Non-AD BCC) [address] [place] [address])(Rehabilitation Program Coordinator ecology) TELE CONSULT [id number] Notes Entered by: JOSE STEELE 08 Nov 2015 1258 ------- ------- ------- ------- -- Test results YO EPPS 11/[address] [place] [address])( [facility]) [address] [place] [address])([facility] bhaskar Med Tm B Non-AD BCC) OUTPATIENT [id number] asthma concern s CASANDRA NILO S 11/12 Released w/o Limitations [address] [place] [address])(F amily Med Tm B Non-AD BCC) [address] [place] [address])([facility] bhaskar Med Tm B Non-AD BCC) TELE CONSULT [id number] Notes Entered by: KAIT SOLIMAN ELS 18 Dec 2015 0704 ------- ------- ------- ------- -- Sx: Asthma- Related Symptom s//Cola nese//5 [phone] //dmd DONYA WALL 12/17 Referred for Appointment [address] [place] [address] Christopher [facility])(F amily Med Tm B Non-AD BCC) [address] [place] [address])(Med ication Refill Clinic) TELE CONSULT [id number] Notes Entered by: RASHEED FLOWER 19 Dec 2015 1548 ------- ------- ------- ------- -- Rx renewal - Colanes e - - tsg MILEY BAUTISTA 12/[address] [place] [address])(Tc loyd on Refill Clinic) [address] [place] [address])(Ruperto rior Op Med Cln Tm A Ad) OUTPATIENT [id number] asthma flare GOLDY BUCHANAN 01/07 Released w/o Limitations [address] [place] [address])(W arrior Op Med Cln Tm A Ad) [address] [place] [address])(Fam bhaskar Med Tm B Non-AD BCC) TELE CONSULT [id number] Notes Entered by: RASHEED FLOWER 31 Jan 2016 1233 ------- ------- ------- ------- -- ER refusal - SOB - Asthma - Colanes e - - tsg* DONYA WALL 01/30 Referred for Appointment [address] [place] [address] Christopher [facility])(F amily Med Tm B Non-AD BCC) [address] [place] [address])(Fam bhaskar Med Tm B Non-AD BCC) OUTPATIENT [id number] Unable to take deep breathe s, Cough, Headach e x 2days [id number] NILO GUAJARDO 02/15 Released w/o Limitations [address] [place] [address])(F amily Med Tm B Non-AD BCC) [address] [place] [address])(Fam bhaskar Med Tm B Non-AD BCC) TELE CONSULT [id number] Notes Entered by: MAO BAKER ROWAN West 20 Feb 2016 1334 ------- ------- ------- ------- -- Network Results -RADIOL OGY 11/15/15 SCREEN MAMMO NILO PINA 02/[address] [place] [address])(F amily Med Tm B Non-AD BCC) [address] [place] [address])(Fam bhaskar Med Tm B Non-AD BCC) TELE CONSULT [id number] Notes Entered by: SAVANNAH WELLS 21 Feb 2016 1045 ------- ------- ------- ------- -- Network results Urgent Care 016 NILO SOMMER 02/[address] [place] [address] Christopher [facility])(F amily Med Tm B Non-AD BCC) [address] [place] [address])([facility] bhaskar Med Tm B Non-AD BCC) TELE CONSULT [id number] Notes Entered by: KAIT SOLIMAN ELS 27 Feb 2016 0959 ------- ------- ------- ------- -- Referra l to Sleep Study// Colanes e//[phone]. [phone] DONOVAN JC 02/[address] [place] [address] Christopher [facility])(F amily Med Tm B Non-AD BCC) [address] [place] [address] Christopher [facility])(Fam bhaskar Med Tm B Non-AD BCC) TELE CONSULT [id number] Notes Entered by: SAVANNAH WELLS 13 Mar 2016 1302 ------- ------- ------- ------- -- Network results Pulmona ry/Jean p Medicin e 016 NILO SOMMER 03/[address] [place] [address] Christopher [facility])(F amily Med Tm B Non-AD BCC) [address] [place] [address])(Fam bhaskar Med Tm B Non-AD BCC) TELE CONSULT [id number] Notes Entered by: SAVANNAH WELLS 27 Mar 2016 1035 ------- ------- ------- ------- -- Network results Pulmona ry/Slee p Medicin e 016 NILO SOMMER 03/[address] [place] [address])(F amily Med Tm B Non-AD BCC) [address] [place] [address])(Fam bhaskar Med Tm B Non-AD BCC) OUTPATIENT [id number] ADE AVILA 05/15 Released w/o Limitations [address] [place] [address])(F amily Med Tm B Non-AD BCC) [address] [place] [address])(Med ication Refill Clinic) TELE CONSULT [id number] Notes Entered by: Sally SALINAS 17 May 2016 1149 ------- ------- ------- ------- -- Med Renewal / Colanes e/ [phone] - MILEY Kenney 05/[address] [place] [address])(Tc loyd on Refill Clinic) [address] [place] [address])(Fam bhaskar Med Tm B Non-AD BCC) OUTPATIENT [id number] Medicat ion renewal DARIUS MERCADO 05/20 Released w/o Limitations [address] [place] [address])(F amily Med Tm B Non-AD BCC) [address] [place] [address])(Fam bhaskar Med Tm B Non-AD BCC) TELE CONSULT [id number] Notes Entered by: Sally SALINAS 28 Jun 2016 1120 ------- ------- ------- ------- -- SX - Multipl e SX / Colanes e/ - DEE Yu 06/28 Referred for Appointment [address] [place] [address])(F amily Med Tm B Non-AD BCC) [address] [place] [address] [employer] ([facility])(Fam bhaskar Med Tm B Non-AD BCC) TELE CONSULT [id number] Notes Entered by: BUSHRA DURON 05 Jul 2016 0846 ------- ------- ------- ------- -- Sx - Sore throat, cough/C olanese / DEE MAN 07/05 Referred for Appointment [address] [place] [address] Group [employer] ([facility])(F amily Med Tm B Non-AD BCC) [address] [place] [address] Christopher B ([facility])(Fam bhaskar Med Tm B Non-AD BCC) OUTPATIENT [id number] L knee pain, [phone] TRE WATKINS 07/10 Released w/o Limitations [address] [place] [address] Group Christopher [facility] ([facility])(F amily Med Tm B Non-AD BCC) [address] [place] [address] Christopher [facility])(Fam bhaskar Med Tm B Non-AD BCC) TELE CONSULT [id number] Notes Entered by: Sally WATKINS 11 Jul 2016 0713 ------- ------- ------- ------- -- Pain in the knee ANITA PAULETTE Anand 07/11 Referred for Appointment [address] [place] [address] Group Christopher [facility] ([facility])(F amily Med Tm B Non-AD BCC) [address] [place] [address] [employer] ([facility])(Fam bhaskar Med Tm B Non-AD BCC) OUTPATIENT [id number] F/U Test results [id number] DARIUS MERCADO 07/26 Released w/o Limitations [address] [place] [address] [employer] ([facility])(F amily Med Tm B Non-AD BCC) [address] [place] [address] [employer] [facility])(War rioalberto Op Med Cln Tm A Ad) TELE CONSULT [id number] Notes Entered by: KANA GARCIA 08 Aug 2016 1321 ------- ------- ------- ------- -- Network Results PULMONA RY MEDICIN E 07/29/16 DARIUS CALZADA 08/[address] [place] [address])(W arrior Op Med Cln Tm A Ad) [address] [place] [address])(Fam bhaskar Med Tm B Non-AD BCC) TELE CONSULT [id number] Notes Entered by: Amanda BEACH 20 Aug 2016 1541 ------- ------- ------- ------- -- Colonos copy referra ABIEL Ramon 08/20 Referred for Appointment [address] [place] [address])(F amily Med Tm B Non-AD BCC) [address] [place] [address])(Med ication Refill Clinic) TELE CONSULT [id number] Notes Entered by: DESHAWN LUIS 19 Mar 2017 0846 ------- ------- ------- ------- -- Med Renewal / Colanes e / [phone] - sgMILEY Soto 03/[address] [place] [address])(Tc loyd on Refill Clinic) [address] [place] [address])(Fam bhaskar Med Tm B Non-AD BCC) OUTPATIENT [id number] med. f/u NILO GUAJARDO 04/08 Released w/o Limitations [address] [place] [address])(F amily Med Tm B Non-AD BCC) [address] [place] [address])(Med ication Refill Clinic) TELE CONSULT [id number] Notes Entered by: DESHAWN LUIS 27 May 2017 1434 ------- ------- ------- ------- -- Med Renewal / Colanes e / [phone] - sgj SABA NAVARRO 05/[address] [place] [address])(Tc loyd on Refill Clinic) [address] [place] [address])(Fam bhaskar Med Tm B Non-AD BCC) TELE CONSULT [id number] Notes Entered by: Sally SALINAS 21 Aug 2017 0947 ------- ------- ------- ------- -- F/U Appt - ER-Hosp italiza tion F/U/ Colanes e/ [phone] - ROGELIO Bustamante 08/[address] [place] [address] [facility])(F amily Med Tm B Non-AD BCC) [address] [place] [address] [facility])(Fam bhaskar Med Tm B Non-AD BCC) [facility]PAT[facility] [id number] [facility] [phone] NILO GUAJARDO 08/26 Released w/o Limitations [address] [place] [address] [facility])(F amily Med Tm B Non-AD BCC) [address] [place] [address] [facility])(Med ication Refill Clinic) TELE CONSULT [id number] Notes Entered by: RASHEED FLOWER 24 Sep 2017 1046 ------- ------- ------- ------- -- Rx renewal - Colanes e - [phone] - ROGELIO Cedeño 09/[address] [place] [address] [facility])(Tc loyd on Refill Clinic) [address] [place] [address] [facility])(Rehabilitation Program Coordinator ecology) TELE CONSULT [id number] Notes Entered by: BRET ORTEGA 21 Oct 2017 0936 ------- ------- ------- ------- -- MANAGER STATE Appt Request - [place]op[place] ana luisa Issues and concern s / Cp# [phone] - YO Chau 10/[address] [place] [address] [facility] ([facility])(Omaira ruiz gy) [address] [place] [address] [facility])(Rehabilitation Program Coordinator ecology) OUTPATIENT [id number] WWE and discuss menopau ana luisa issues [phone] JUAN FLORES 10/23 Released w/o Limitations [facility] [employer] ([facility])(G ynecolo gy) [address] [place] [address] [employer] ([facility])(Fam bhaskar Med Tm B Non-AD BCC) OUTPATIENT [id number] Notes Entered by: NIA NOVA 24 Oct 2017 1135 ------- ------- ------- ------- -- refil NILO Waddell 10/24 Released w/o Limitations [address] [place] [address] [employer] ([facility])(F amily Med Tm B Non-AD BCC) [address] [place] [address] [employer] ([facility])(Sco tt [facility]) OUTPATIENT [id number] 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/ MARGAUX ESPINOSA 10/24 Released w/o Limitations [address] [place] [address] [employer] ([facility])(S [facility]) [address] [place] [address] [employer] ([facility])(Fam bhaskar Med Tm B Non-AD BCC) OUTPATIENT [id number] CHest Congest ion, [phone] NILO GUAJARDO 12/15 Released w/o Limitations [address] [place] [address] [employer] ([facility])(F amily Med Tm B Non-AD BCC) [address] [place] [address] [employer] ([facility])(Rehabilitation Program Coordinator ecology) TELE CONSULT [id number] Notes Entered by: Tc FLORES S 19 Dec 2017 1535 ------- ------- ------- ------- -- YO Gabriel 12/[address] [place] [address] [employer] ([facility])(G ynecolo gy) [facility] [employer] ([facility])(Fam bhaskar Med Tm B Non-AD BCC) OUTPATIENT [id number] cough x1 month / NILO GUAJARDO 03/05 Released w/o Limitations [address] [place] [address] [employer] ([facility])(F amily Med Tm B Non-AD BCC) [address] [place] [address] [employer] ([facility])(Flo tt Internal Medicine Tm) OUTPATIENT [id number] Cough/s neezing /nasal/ chest congest ion/fac ial pain [phone] SUSSY MARRERO Sally 05/25 Released w/o Limitations [address] [place] [address])(S cott Interna l Medicin e Tm) [address] [place] [address])([facility] Internal Medicine ) TELE CONSULT [id number] Notes Entered by: BRET ORTEGA 28 May 2018 0713 ------- ------- ------- ------- -- Medicat ion Inquiry -SX- Headach e/ Phill/ - aj SCOT DE LEON 05/28 Other Not Elsewhere Classified [address] [place] [address])(S cott Interna l Medicin e Tm) [address] [place] [address])([facility] Internal Medicine ) OUTPATIENT [id number] congest ion and has copd NITESH HACKETT 06/05 Released w/o Limitations [address] [place] [address])(S cott Interna l Medicin e Tm) [address] [place] [address])([facility] Internal Medicine ) TELE CONSULT [id number] 5 Notes Entered by: RASHEED FLOWER 17 Jul 2018 1322 ------- ------- ------- ------- -- STAT referra l - Jun appt - Phill - - tsg HANSA CAMEJO 07/17 Immediate Referral [address] [place] [address])(S cott Interna l Medicin e Tm) [address] [place] [address])([facility] Internal Medicine ) OUTPATIENT [id number] Cough/c hest congest ion/hea dache [phone] ANNABELLE MONZON V 09/22 Released w/o Limitations [address] [place] [address])(S cott Interna l Medicin e Tm) [address] [place] [address])([facility] Internal Medicine ) OUTPATIENT [id number] COPD exacerb ation / NITESH HACKETT 10/29 Released w/o Limitations [address] [place] [address])(S cott Interna l Medicin e Tm) [address] [place] [address])([facility] Internal Medicine ) TELE CONSULT [id number] 5 Notes Entered by: RASHEED FLOWER 10 Nov 2018 0808 ------- ------- ------- ------- -- F/U Spec - Referra l req - [facility] - - tsg NITESH HACKETT 11/[address] [place] [address])(S cott Interna l Medicin e Tm) [address] [place] [address])([facility] Internal Medicine ) TELE CONSULT [id number] Notes Entered by: CARMEN DIETRICH 22 Dec 2018 1211 ------- ------- ------- ------- -- Med Renewal /[facility] // clm SCOT DE LEON 12/22 Medication Refill Forwarded [address] [place] [address])(S cott Interna l Medicin e Tm) [address] [place] [address])([facility] Internal Medicine ) OUTPATIENT [id number] 2 annual checkup / DAYAN OLIVARES NMI 02/10 Released w/o Limitations [address] [place] [address])(S cott Interna l Medicin e Tm) [address] [place] [address])([facility] Internal Medicine ) TELE CONSULT [id number] Notes Entered by: Rachael OLIVARES NMI 12 Feb 2019 1150 ------- ------- ------- ------- -- RIGHT LUNG NODULE- F/U CT In 6 months SCOT DE LEON 02/12 Other Not Elsewhere Classified [address] [place] [address])(S cott Interna l Medicin e Tm) [address] [place] [address])([facility] Internal Medicine ) TELE CONSULT [id number] Notes Entered by: Sally URENA 16 Feb 2019 1244 ------- ------- ------- ------- -- Network results Otolary ngology [ENT] 019 DAYAN MAHARAJ NMI 02/[address] [place] [address])(S cott Interna l Medicin e Tm) [address] [place] [address])([facility] Internal Medicine ) TELE CONSULT [id number] Notes Entered by: Omaira MARTINEZ 31 Mar 2019 1209 ------- ------- ------- ------- -- Express scripts : med refill / arelisp CLINT TRUJILLO 03/31 Medication Refill Forwarded [address] [place] [address])(S cott Interna l Medicin e Tm) [address] [place] [address])([facility] Internal Medicine ) TELE CONSULT [id number] 5 Notes Entered by: CARMEN DIETRICH 15 Apr 2019 1034 ------- ------- ------- ------- -- Med Renewal --OUT X2 DAYS--Amanda bocanegra --618.5 [phone] --CLINT Aguero 04/15 Medication Refill Forwarded [address] [place] [address])(S cott Interna l Medicin e Tm) [address] [place] [address])([facility] Internal Medicine ) OUTPATIENT [id number] 7 Cough and Congest ion, ADAM WEST 07/07 Released w/o Limitations [address] [place] [address])(S cott Interna l Medicin e Tm) [address] [place] [address])([facility] Internal Medicine ) TELE CONSULT [id number] Notes Entered by: TIANA SHAH 24 Aug 2019 1101 ------- ------- ------- ------- -- Network Results Allergy 020 KSP ADAM WEST 08/[address] [place] [address])(S cott Interna l Medicin e Tm) [address] [place] [address])([facility] Internal Medicine ) OUTPATIENT [id number] knee pain,61 [phone] ADAM WEST 08/25 Released w/o Limitations [address] [place] [address])(S cott Interna l Medicin e Tm) [address] [place] [address])([facility] Internal Medicine ) TELE CONSULT [id number] 9 Notes Entered by: CARMEN DIETRICH 03 Sep 2019 1128 ------- ------- ------- ------- -- Lamar Gilbert /Chandra eisenberg/[phone] Marcia/SCOT Singletary 09/02 Other Not Elsewhere Classified [address] [place] [address])(S cott Interna l Medicin e Tm) [address] [place] [address])([facility] Internal Medicine ) TELE CONSULT [id number] 5 Notes Entered by: ESTUARDO RUIZ RET 11 Oct 2019 1210 ------- ------- ------- ------- -- SX: Left knee pain/Ch ambertrinidad/ *p SUSSY Franklin 10/[address] [place] [address])(S cott Interna l Medicin e Tm) [address] [place] [address])([facility] Internal Medicine ) TELE CONSULT [id number] Notes Entered by: ROSANNE SOARES 15 Oct 2019 0758 ------- ------- ------- ------- -- ED F/SCOT HA 10/14 Other Not Elsewhere Classified [address] [place] [address])(S cott Interna l Medicin e Tm) [address] [place] [address] Group [facility])([facility] Internal Medicine ) TELE CONSULT [id number] 5 Notes Entered by: BRET ORTEGA 18 Oct 2019 1019 ------- ------- ------- ------- -- Quarant ine Work Note Request / Cisco abdi/ - SCOT Amezquita 10/17 Other Not Elsewhere Classified [facility])(S cott Interna l Medicin e Tm) [address] [place] [address])([facility] Internal Medicine ) OUTPATIENT [id number] Virtual - Upper L Back pain x 3 - 4 weeks ADAM WEST 02/20 Released w/o Limitations [facility])(S cott Interna l Medicin e Tm) [address] [place] [address])([facility] Internal Medicine ) TELE CONSULT [id number] Notes Entered by: ESTUARDO RUIZ RET 28 Aug 2020 1250 ------- ------- ------- ------- -- STAT Pulmona ry Lamar rg daljit /* [facility] LUIS CAICEDO 08/28 Other Not Elsewhere Classified [facility])(S cott Interna l Medicin e Tm) [address] [place] [address])([facility] Internal Medicine ) TELE CONSULT [id number] Notes Entered by: YOHAN JEAN 24 Oct 2020 1321 ------- ------- ------- ------- -- lamar gilbert /chandra eisenberg/[phone] ERLIN Boateng 10/24 Other Not Elsewhere Classified [facility])(S cott Interna l Medicin e Tm) [address] [place] [address])([facility] Internal Medicine ) TELE CONSULT [id number] Notes Entered by: PRASANTH ClaytonEMANUEL Arcenio 05 Dec 2020 1129 ------- ------- ------- ------- -- Network results Allergy 021 SLC ADAM WEST 12/[address] [place] [address])(S cott Interna l Medicin e Tm) [address] [place] [address])([facility] Internal Medicine ) OUTPATIENT [id number] Annual appoint ment (labs ordered ) ADAM WEST 01/23 Released w/o Limitations [address] [place] [address])(S cott Interna l Medicin e Tm) [address] [place] [address])([facility] Internal Medicine ) OUTPATIENT [id number] 2 Virtual -sore throat and congest ion x 5 days-61 8.558.7 097 BRANDAN LINDA 04/11 Released w/o Limitations [address] [place] [address])(S cott Interna l Medicin e Tm) [address] [place] [address])([facility] Internal Medicine ) TELE CONSULT [id number] Notes Entered by: RASHEED FLOWER 12 Apr 2021 0955 ------- ------- ------- ------- -- COVID test done - [facility] s - - tsg SCOT DE LEON 04/12 Other Not Elsewhere Classified [address] [place] [address])(S cott Interna l Medicin e Tm) [address] [place] [address])([facility] Virus) OUTPATIENT [id number] symptom atic covid and strep LONG SHELTON 04/12 Released w/o Limitations [address] [place] [address])(P andemic Virus) [address] [place] [address])([facility] Internal Medicine ) OUTPATIENT [id number] Virtual review labs for allergi st pt will email SLT ADAM WEST 07/06 Released w/o Limitations [address] [place] [address] [facility])(S cott Interna l Medicin e Tm) [address] [place] [address] [facility])(Rehabilitation Program Coordinator ecology) OUTPATIENT [id number] [phone] LACIE MARINO 07/09 Released w/o Limitations [address] [place] [address] [facility])(G ynecolo gy) [address] [place] [address] [facility])(Rehabilitation Program Coordinator ecology) TELE CONSULT [id number] Notes Entered by: JEREMY ROBLES 10 Jul 2021 1510 ------- ------- ------- ------- -- U[place]ade d into [facility] LACIE MARINO 07/[address] [place] [address] [facility])(G ynecolo gy) [address] [place] [address] [facility])(Rehabilitation Program Coordinator ecology) TELE CONSULT [id number] Notes Entered by: GIANLUCA MARINO 17 Jul 2021 1006 ------- ------- ------- ------- -- results RICHAR STARK 07/17 Referred for Appointment [address] [place] [address] [facility])(G ynecolo gy) [address] [place] [address] [facility])(Rehabilitation Program Coordinator ecology) TELE CONSULT [id number] Notes Entered by: RIHCAR STARK 24 Jul 2021 0921 ------- ------- ------- ------- -- Test results RICHAR STARK 07/24 Released to Self Care [address] [place] [address] [facility])(G ynecolo gy) [address] [place] [address] [facility])([facility] Internal Medicine ) OUTPATIENT [id number] go over results of CT SCAN ADAM WEST 08/21 Released w/o Limitations [address] [place] [address] [facility])(S cott Interna l Medicin e Tm) [address] [place] [address] [facility])([facility] Internal Medicine Tm) TELE CONSULT [id number] Notes Entered by: YOHAN JEAN 21 Nov 2021 1342 ------- ------- ------- ------- -- lamar gilbert /chandra /[phone] sam MACKEYABIEL Trinidad 11/21 Other Not Elsewhere Classified [address] [place] [address])(S cott Interna l Medicin e Tm) [address] [place] [address])([facility] Internal Medicine ) TELE CONSULT [id number] Notes Entered by: KEANU DIAMOND 30 Nov 2021 0848 ------- ------- ------- ------- -- Network results Cardiol ogy BRANDAN RUEDA 11/[address] [place] [address])(S cott Interna l Medicin e Tm) [address] [place] [address])([facility] Internal Medicine ) TELE CONSULT [id number] Notes Entered by: Natividad POND 04 Feb 2022 1057 ------- ------- ------- ------- -- Network results ALLERGY 022 BRANDAN MEDRANO 02/[address] [place] [address])(S cott Interna l Medicin e Tm) [address] [place] [address])([facility] Internal Medicine ) TELE CONSULT [id number] 7 Notes Entered by: YESICA BOWLING 14 Feb 2022 1119 ------- ------- ------- ------- -- Network results Allergy 022 BRANDAN THOMPSON 02/[address] [place] [address])(S cott Interna l Medicin e Tm) [address] [place] [address])([facility] Internal Medicine ) TELE CONSULT [id number] Notes Entered by: BUSHRA DURON 19 Mar 2022 0810 ------- ------- ------- ------- -- F/u after special ist - Referra l Req/Kru se/618. [phone] LUCIANO PALACIOS 03/19 Medication Refill Forwarded [address] [place] [address])(S cott Interna l Medicin e Tm) [address] [place] [address])([facility] Internal Medicine ) OUTPATIENT [id number] annual lab and exam SWAPNIL RHOADES 04/29 Released w/o Limitations [address] [place] [address])(S cott Interna l Medicin e Tm) [address] [place] [address])([facility] Internal Medicine ) TELE CONSULT [id number] 5 Notes Entered by: BUSHRA DURON 13 Jun 2022 1019 ------- ------- ------- ------- -- Sx - L leg pain/Kr use/618 .558.70 97 LUCIANO PALACIOS 06/13 Referred- Emergency Department [address] [place] [address])(S cott Interna l Medicin e Tm) [address] [place] [address])([facility] Internal Medicine ) TELE CONSULT [id number] Notes Entered by: RASHEED FLOWER 12 Jul 2022752 ------- ------- ------- ------- -- Rx renewal - [place] - - tsg LUCIANO PALACIOS 07/12 Medication Refill Forwarded [address] [place] [address])(S cott Interna l Medicin e Tm) [address] [place] [address])(Rehabilitation Program Coordinator ecology) TELE CONSULT [id number] 3 Notes Entered by: RASHEED FLOWER 12 Jul 2022758 ------- ------- ------- ------- -- Rx renewal - - tsg RICHAR STARK 07/12 Referred for Appointment [address] [place] [address])(G ynecolo gy) [address] [place] [address])([facility] Internal Medicine ) TELE CONSULT [id number] Notes Entered by: BUSHRA DURON 16 Jul 2022 0732 ------- ------- ------- ------- -- Sx - Cough/K ruse/61 8.558.7 097 LUCIANO PALACIOS 07/16 Referred for Appointment [address] [place] [address])(S cott Interna l Medicin e Tm) [address] [place] [address])([facility] Internal Medicine ) OUTPATIENT [id number] product liseth cough x 2 weeks (green sputum) SWAPNIL RHOADES 07/16 Released w/o Limitations [address] [place] [address])(S cott Interna l Medicin e Tm) [address] [place] [address])(Rehabilitation Program Coordinator ecology) OUTPATIENT [id number] 3 WWE. LACIE MARINO 07/18 Released w/o Limitations [address] [place] [address])(G ynecolo gy) [address] [place] [address])(Rehabilitation Program Coordinator ecology) TELE CONSULT [id number] Notes Entered by: GIANLUCA MARINO 15 Aug 2022 1745 ------- ------- ------- ------- -- results RICHAR STARK 08/15 Released to Self [facility] [address] [place] [address])(G ynecolo gy) [facility] [id number] Pain in unspeci fied knee,Pa in in left knee ROBBIE DILLON 07/29 Discharge Disposition: Home or Self Care [id number] [id number] 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), 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 ROBBIE REAL DBRUBAKER 07/29 Discharge Disposition: Home or Self Care 5A-3 [facility] 5C-375 th [facility] Between Visit [id number] 08/03 Discharge Disposition: Home or Self Care 5C-3 [facility] 5A-375 th [facility] Between Visit [id number] 10/25 Discharge Disposition: Home or Self Care 5A-3 [facility] 5A-375 th [facility] Outpatient [id number] HATIM AMAHMOOD 10/28 Discharge Disposition: Home or [...] Ambulatory Pharmacy VACUUM EXTRACTION WITH EPISIOTOMY 1995 [facility] OTHER ARTIFICIAL RUPTURE OF MEMBRANES 1995 [facility] MONITORING, NOT OTHERWISE SPECIFIED 1995 [facility] EKG (SCALP) 1995 [facility] MEDICAL INDUCTION OF LABOR 1995 [employer] TELE [...] HEALTH AND BEHAVIOR INTERVENTION, EACH 15 MINUTES, [id number]; INDIVIDUAL 2017 DoD ONLINE ASSESS &MANAG SERV PROVIDE,A QUAL NONPHYS HCP TO AN ESTABLISHED PAT/GUARDIAN,NOT ORIGINAT FRM RELAT ASSESS &MANAG SERV PROVIDE W/IN THE PREV 7 DAYS,USE THE INTERNET/SIMILAR [employer] NETWORK 2017 DoD TELE ASSESS & [...] W/IN THE PREV 7 DAYS,USE THE INTERNET/SIMILAR [employer] NETWORK 2016 DoD TELE ASSESS & MGT [...] 2009 DoD DETERMINATION OF REFRACTIVE STATE 2008 [facility] SCREENING PAPANICOLAOU SMEAR; OBTAINING, PREPARING AND CONVEYANCE OF CERVICAL OR VAGINAL SMEAR TO LABORATORY 2008 [facility] PREPARATION OF REPORT OF PATIENT'S PSYCHIATRIC STATUS, HISTORY, TREATMENT, OR PROGRESS (OTHER THAN FOR LEGAL OR CONSULTATIVE PURPOSES) FOR OTHER INDIVIDUALS, AGENCIES, OR INSURANCE CARRIERS 2008 [facility] PSYCHIATRIC DIAGNOSTIC INTERVIEW EXAMINATION 2008 DoD TELE [...] 2007 DoD DETERMINATION OF REFRACTIVE STATE 2006 [facility] RESPIRATORY FLOW VOLUME LOOP 2006 [facility] PERCUTANEOUS TESTS (SCRATCH, PUNCTURE, PRICK) WITH ALLERGENIC EXTRACTS, IMMEDIATE TYPE REACTION, INCLUDING TEST INTERPRETATION AND REPORT, SPECIFY NUMBER OF TESTS 2006 [facility] IMMUNIZATION ADMINISTRATION (INCLUDES PERCUTANEOUS, INTRADERMAL, SUBCUTANEOUS, OR INTRAMUSCULAR INJECTIONS); 1 VACCINE (SINGLE OR COMBINATION VACCINE/TOXOID) 2006 [facility] SCREENING PAPANICOLAOU SMEAR; OBTAINING, PREPARING AND CONVEYANCE OF CERVICAL OR VAGINAL SMEAR TO LABORATORY 2005 [facility] PHARMACOLOGIC MANAGEMENT, INCLUDING PRESCRIPTION, USE, AND REVIEW OF MEDICATION WITH NO MORE THAN MINIMAL MEDICAL PSYCHOTHERAPY 2003 [facility] OPHTHALMOLOGICAL SERVICES: MEDICAL EXAMINATION AND EVALUATION WITH INITIATION OF DIAGNOSTIC AND TREATMENT PROGRAM; INTERMEDIATE, NEW PATIENT 2001 [facility] EDUCATIONAL SUPPLIES, SUCH BOOKS, TAPES, AND PAMPHLETS, FOR THE PATIENT'S EDUCATION AT COST TO PHYSICIAN OR OTHER QUALIFIED HEALTH GENERATOR REPAIRER 2001 [facility] DETERMINATION OF VENOUS PRESSURE 2001 [facility] VOIDING PRESSURE STUDIES (EDUCATION NURSE); BLADDER VOIDING PRESSURE, ANY TECHNIQUE 2001 [facility] DETERMINATION OF VENOUS PRESSURE 2001 [facility] PHYS/OTH QUALIFIED HEALTH GENERATOR REPAIRER QUALIFIED,EDUCATIO N,TRAIN,LICENSURE/ REGULATION (WHEN APPLICABLE) EDUC SER RENDERED TO PATS IN A GRP SETTING (EG,,OBESI TY,OR DIABETIC INSTRUCT) 2001 [facility] SCREENING PAPANICOLAOU SMEAR; OBTAINING, PREPARING AND CONVEYANCE OF CERVICAL OR VAGINAL SMEAR TO LABORATORY 2001 [facility] ULTRASOUND, RETROPERITONEAL (EG, RENAL, AORTA, NODES), REAL TIME WITH IMAGE DOCUMENTATION; LIMITED 2001 [facility] CATHETERIZATION, URETHRA; SIMPLE 1999 [facility] DETERMINATION OF REFRACTIVE STATE 1999 [facility] Non-Physician Phone Call To Patient/Provider Brief (5-10min) Non-Physician Phone Call To Patient/Provider Brief (5-10min) [id number] 2018 MONIKA CHAU [facility] Health And Behavior Intervention, Each 15 Minutes Individual Health And Behavior Intervention, Each 15 Minutes Individual [id number] 2017 MARGAUX ESPINOSA [facility] Health And Behav A e mt Each 15 Min Initial A e ment Health And Behav Assessmt Each 15 Min Initial Assessment [id number] 2017 MARGAUX ESPINOSA [facility] Internet Med Svc Qual Nonphys Healthcare Prof Estab Patient Internet Med Svc Qual Nonphys Healthcare Prof Estab Patient [id number] 2017 NILO GUAJARDO [facility] Non-Physician Phone Call To Patient/Provider Brief (5-10min) Non-Physician Phone Call To Patient/Provider Brief (5-10min) [id number] 2017 ROGELIO SAMUELS [facility] Non-Physician Phone Call To Patient/Provider Brief (5-10min) Non-Physician Phone Call To Patient/Provider Brief (5-10min) [id number] 2017 ROGELIO SAMUELS [facility] Internet Med Svc Qual Nonphys Healthcare Prof Estab Patient Internet Med Svc Qual Nonphys Healthcare Prof Estab Patient [id number] 2016 ABIEL MACKEY [facility] Non-Physician Phone Call To Patient/Provider Brief (5-10min) Non-Physician Phone Call To Patient/Provider Brief (5-10min) [id number] 2016 PAULETTE HOWARD [facility] Non-Physician Phone Call To Patient/Provider Brief (5-10min) Non-Physician Phone Call To Patient/Provider Brief (5-10min) [id number] 2016 DEE MAN [facility] Non-Physician Phone Call To Patient/Provider Brief (5-10min) Non-Physician Phone Call To Patient/Provider Brief (5-10min) [id number] 2015 DEE MAN [facility] Disease management program, follow-up/leobardo e ment 2015 MILEY BAUTISTA [facility] Non-Physician Phone Call To Patient/Provider Brief (5-10min) Non-Physician Phone Call To Patient/Provider Brief (5-10min) [id number] 2015 DONOVAN JC [facility] Non-Physician Phone Call To Patient/Provider Brief (5-10min) Non-Physician Phone Call To Patient/Provider Brief (5-10min) [id number] 2015 DONYA WALL [facility] Disease management program, follow-up/leobardo e ment 2015 NILO GUAJARDO [facility] Non-Physician Phone Call To Patient/Provider Brief (5-10min) Non-Physician Phone Call To Patient/Provider Brief (5-10min) [id number] 2015 DONYA WALL [facility] Non-Physician Phone Call To Patient/Provider Brief (5-10min) Non-Physician Phone Call To Patient/Provider Brief (5-10min) [id number] 2015 DONAY WALL [facility] Urine HCG, Test Urine HCG, Test [id number] 2015 J LUIS STEELE [facility] Biopsy Endometrial, Without Cervical Dilation Biopsy Endometrial, Without Cervical Dilation [id number] 2015 J LUIS STEELE [facility] Screening papanicolaou smear; obtaining, preparing and conveyance of cervical or vaginal smear to laboratory 2015 J LUIS STEELE [facility] Respiratory Equip IPPB Nebul Gla /Autoclav Bottle Respiratory Equip IPPB Nebul Glass/Autoclav Bottle [id number] 2015 GOLDY BUCHANAN [facility] Non-Physician Phone Call To Patient/Provider Brief (5-10min) Non-Physician Phone Call To Patient/Provider Brief (5-10min) [id number] 2014 DONYA WALL [facility] Prev Med Documented/Reviewe d FEV > or = 40% Predicted Value Prev Med Documented/Reviewe d FEV > or = 40% Predicted Value [id number] 2014 HUMBERTO HAGAN [facility] Non-Physician Phone Call To Patient/Provider Brief (5-10min) Non-Physician Phone Call To Patient/Provider Brief (5-10min) [id number] 2014 DONYA WALL [facility] Non-Physician Phone Call To Patient/Provider Brief (5-10min) Non-Physician Phone Call To Patient/Provider Brief (5-10min) [id number] 2014 SHERICE HELMS [facility] Non-Physician Phone Call To Patient/Provider Brief (5-10min) Non-Physician Phone Call To Patient/Provider Brief (5-10min) [id number] 2014 KRIS MAGDALENO [facility] Non-Physician Phone Call To Patient/Provider Brief (5-10min) Non-Physician Phone Call To Patient/Provider Brief (5-10min) [id number] 2013 KRIS MAGDALENO [facility] Non-Physician Phone Call To Patient/Provider Brief (5-10min) Non-Physician Phone Call To Patient/Provider Brief (5-10min) [id number] 2012 SHERICE HELMS [facility] Spirometry Pre-bronchodilator Spirometry Pre-bronchodilator 22508 2012 ABIEL ELLINGTON FVC 102% FEV1 99% FEV1% 98% DoD Respiratory Equip IPPB Related Equip Nebulizer Respiratory Equip IPPB Related Equip Nebulizer 73634 2012 MAU SAMUEL Administered albuteral 0.083% via nebulizer. repeat O2Sat 98% but still with significant wheezing throughout lung hawkins. Repeat treatment 20 minutes later: 99%O2Sat RA; lung hawkins CTA DoD Destruction Of Benign Lesion By Cryosurgery Destruction Of Benign Lesion By Cryosurgery 91746 2012 MAU SAMUEL Indication: [place] Location: right [...] Non-Physician Phone Call To Patient/Provider Brief (5-10min) [id number] 2012 GOLDY SHERWOOD [facility] Non-Physician Phone Call To Patient/Provider Brief (5-10min) Non-Physician Phone Call To Patient/Provider Brief (5-10min) [id number] 2012 ABIEL MACKEY Determination Of Refractive State Determination Of Refractive State [id number] 2011 TRISTIAN GIRALDO Ophthalmological Prior Patient Start Comprehensive Care Ophthalmological Prior Patient Start Comprehensive Care [id number] 2011 TRISTIAN GIRALDO Fundus Photography Fundus Photography [id number] 2011 TRISTIAN GIRALDO Non-Physician Phone Call To Patient/Provider Brief (5-10min) Non-Physician Phone Call To Patient/Provider Brief (5-10min) [id number] 2011 ROSANNE SOARES Non-Physician Phone Call To Patient/Provider Brief (5-10min) Non-Physician Phone Call To Patient/Provider Brief (5-10min) [id number] 2011 ROSANNE SOARES Non-Physician Phone Call To Patient/Provider Brief (5-10min) Non-Physician Phone Call To Patient/Provider Brief (5-10min) [id number] 2011 ROSANNE SOARES Non-Physician Phone Call To Patient/Provider Brief (5-10min) Non-Physician Phone Call To Patient/Provider Brief (5-10min) [id number] 2011 ROSANNE SOARES Non-Physician Phone Call To Patient/Provider Brief (5-10min) Non-Physician Phone Call To Patient/Provider Brief (5-10min) [id number] 2010 ROSANNE SOARES Screening papanicolaou smear; obtaining, preparing and conveyance of cervical or vaginal smear to laboratory 2010 KRIS FLORES Non-Physician Phone Call To Patient/Provider Brief (5-10min) Non-Physician Phone Call To Patient/Provider Brief (5-10min) [id number] 2009 [facility]Phys[facility] Phone Call To Pt/Provider Intermed (11-20 min) Non-Physician Phone Call To Pt/Provider Intermed (11-20 min) [id number] 2009 [facility] Determination Of Refractive State Determination Of Refractive State 43001 2008 TAVON GOMEZ Fundus Photography Fundus Photography [id number] 2008 TAVON GOMEZ Scanning Computerized Ophthalmic Diagnostic Imaging 2008 TAVON GOMEZ Ophthalmological Prior Patient Start Comprehensive Care Ophthalmological Prior Patient Start Comprehensive Care [id number] 2008 TAVON GOMEZ Screening papanicolaou smear; obtaining, preparing and conveyance of cervical or vaginal smear to laboratory 2008 LACIE MARINO Psychiatric Therapy Preparation of Psychiatric Status Report Psychiatric Therapy Preparation of Psychiatric Status Report [id number] 2008 DARIUSZ JAUREGUI Psychiatric Evaluation Comprehensive Examination Psychiatric Evaluation Comprehensive Examination [id number] 2008 DARIUSZ JAUREGUI Non-Physician Phone Call To Patient/Provider Brief (5-10min) Non-Physician Phone Call To Patient/Provider Brief (5-10min) [id number] 2008 DARBY STEWARD Screening papanicolaou smear; obtaining, preparing and conveyance of cervical or vaginal smear to laboratory 2007 KRIS FLORES Non-Physician Phone Call To Patient/Provider Brief (5-10min) Non-Physician Phone Call To Patient/Provider Brief (5-10min) [id number] 2007 DARBY STEWARD Determination Of Refractive State Determination Of Refractive State 89288 2006 AVELINA ARENAS Ophthalmological New Patient Start Comprehensive Care Ophthalmological New Patient Start Comprehensive Care 68733 2006 AVELINA ARENAS Pulmonary Function Tests Flow Volume Loop Pulmonary Function Tests Flow Volume Loop 23425 2006 REBECCA SILVER FVC 3.14, 90% expected FEV1 2.47, 82% expected ratio 78.7 FEF 25-75 2.29, 63% expected [facility] Pulmonary Function FEV1 % change after bronchodilator Pulmonary Function FEV1 % change after bronchodilator 56563 2006 REBECCA SILVER albuterol nebulizer [facility] Allergy Percutaneous tests - allergenic extracts 2006 REBECCA SILVER [facility] Pulmonary Function Tests Flow Volume Loop Pulmonary Function Tests Flow Volume Loop 12946 2006 REBECCA SILVER [facility] Influenza Split Virus Vaccine Age 3+ Years Intramuscular 2006 DAVID LOPEZ [facility] Screening papanicolaou smear; obtaining, preparing and conveyance of cervical or vaginal smear to laboratory 2005 SELENE OSORIO [facility] Psychoactive Medication Management Psychoactive Medication Management [id number] 2003 SAVANNAH MCCOLLUM [facility] Psychoactive Medication Management Psychoactive Medication Management 44287 2003 SAVANNAH MCCOLLUM [facility] Waiver services; not otherwise specified (NOS) ADAM WEST [facility] Screening papanicolaou smear; obtaining, preparing and conveyance of cervical or vaginal smear to laboratory LACIE MARINO [facility] Non-Physician Phone Call To Patient/Provider Brief (5-10min) Non-Physician Phone Call To Patient/Provider Brief (5-10min) [id number] ABIEL MACKEY [facility] Non-Physician Phone Call To Pt/Provider Intermed (11-20 min) Non-Physician Phone Call To Pt/Provider Intermed (11-20 min) [id number] LUCIANO PALACIOS [facility] Social History Combined list of available smoking, tobacco, and other social history from [facility] and [facility] facilities. Social History Type Response Date Comment [facility] e Sex Representation Female (finding) 08/22/2022 Unknown [...] XR to r/o worsening OA - Provided [facility] Acute Knee Pain protocol - Ketorolac 30mg IM given in clinic - Meloxicam 7.5mg QHS for 14 days, avoid other NSAIDS. - Will consider PT vs steroid injection in clinic if pain persists Ordered: meloxicam(meloxicam 7.5 mg oral tablet), 1 tab(s), Oral, every day at bedtime, # 14 tab(s), 0 total refill(s), Maintenance, Pharmacy: [facility] [Last filled 07/29/24] [...] note. Robbie Hector MD Capt, [address] [facility], [facility] Internal Medicine Staff Physician Extracted from:Title: 0055C Clinic - Chest pain/anxiety Author: ROBBIE HECTOR MD Date: 03/12/24 1. C hest pain She went to the [facility] [facility] ED on Mar 05 for SOB and chest tightness. They obtained an EKG, CXR, and serial troponins (2x) that were unremarkable. Heart score 3. They determined that this was likely due to anxiety but recommended outpatient evaluation for stable angina. - Referral to [facility] cardiology for outpatient ischemic workup Ordered: Referral [...] note. Robbie Hector MD Capt, [address] [facility], [facility] Internal Medicine Staff Physician Extracted from:Title: [...] get enough exercise. You smoke. You take vkpv-gii-ktpofwd pain medicines. You have a family history [...] Follow these instructions at home: Medicines Take hklu-ziu-sqoyamf and prescription medicines only as told by your provider. If told, take a fiber supplement or probiotic. Managing constipation Your condition may cause constipation. To prevent or treat constipation, you may need to: Drink enough fluid to keep your pee (urine) pale yellow. Take csbn-ube-lwtnrnw or prescription medicines. Eat foods that are [...] provider. Document Revised: 03/13/2023 Document Reviewed: 03/13/2023 [employer] Patient Education 2023 [employer] Orthopedics Osteopenia Osteopenia is a loss [...] hard liquor (44 mL). General instructions Take kvun-mbb-nkjxhmr and prescription medicines only as told by [...] provider. Document Revised: 11/30/2020 Document Reviewed: 11/30/2020 [employer] Patient Education 2023 [employer]. Extracted from:Title: 0055C Clinic - Sinusitis/osteopenia Author: ORBBIE HECTOR MD Date: 02/26/24 1. S inusitis [...] treatment of underlying rhinitis - Continue with photo colorer 2. O ther specified counseling Recent bnoe [...] note. Robbie Hector MD Capt, [address] [facility], [facility] Internal Medicine Staff Physician Extracted from:Title: MANAGER STATE/WWE, pap Author: LACIE MARINO NP Date: 01/13/24 [...] serving sizes can be found at h ttps://www.[place] city [place].gov/.&# 160; T hese amounts are appropriate for individuals who get less than 30 minutes per day of moderate physical activity, beyond normal daily activities. Those who are more physically active may be able to consume more while staying within calorie needs. Ordered: Lipid Panel 2. E ncounter for screening for malignant neoplasm of cervix co test 5yrs if neg Ordered: AP Cytology MANAGER STATE HPV High Risk (16/18/Other) 3. O ther [...] vs expenditure f/u prn PVUA. 8. B CA 33.0 to 33.9 Pt questions addressed and written discharge instructions were provided to the patient. Lacie Alberto Darinel [facility] SUPPLY CHAIN COORDINATOR [facility] Extracted from:Title: 0055C Clinic - Dry [...] this note. Robbie Hector MD Capt, [address] [facility] Internal Medicine Staff Physician Extracted from:Title: 0055 [facility] Virtual Macroglossia Author: SWAPNIL RHOADES DO [...] encouraged to return to clinic, present to [facility] or ER for persistent worsening or development of other concerning symptoms. Patient cites understanding and agrees with plan of care. A total of 30 minutes was spent on this visit reviewing previous notes, counseling the patient on the listed diagnoses, reviewing/ordering tests, adjusting medications, and documenting the findings in this note. Pati Rhoades DO, [facility], [facility] Internal Medicine, [place] [employer] Extracted from:Title: 0055C [facility] - Dry mouth Author: ROBBIE HECTOR MD [...] encouraged to return to clinic, present to [facility] or ER for persistent worsening or development of other concerning symptoms. Patient cites understanding and agrees with plan of care. A total of 30 minutes was spent on this visit reviewing previous notes, counseling the patient on the listed diagnoses, reviewing/ordering tests, adjusting medications, and documenting the findings in this note. Robbie Hector MD Capt, [address] [facility], [facility], Internal Medicine Staff Physician Extracted from:Title: 0055 [...] and Culture if Indicated Pati Rhoades DO, [facility], , [facility] Internal Medicine, [employer] Extracted from:Title: 0055 [...] this note. 2. O besity 3. B CA 30+ - obesity Patient also notes concerns about her wt. Discussed diet and exercise to benefit wt. Specifically recommended Mediterranean, low carb, and whole food plant based diet. Discussed ACC/AHA recommendations for exercise (150 min/wk). offered referral to nutrition, but franciscotent politely declines. Encouraged 6 month trial of diet and exercise regimen. Patient cites understanding and agrees. Pati Rhoades DO, MEd [facility], , [facility] Internal Medicine, [employer] Future Scheduled TestsLaboratoryVitamin D 25 Hydroxy Level 04/12/24Lipid Panel 04/12/24 01/09/2025 0055C-[facility] [facility] Assessment and Plan Extracted from:Title [...] XR to r/o worsening OA - Provided [facility] Acute Knee Pain protocol - [...] in this note. MD Marvin Milan, [address] [facility] Internal Medicine Staff Physician Extracted from:Title: 0055C Clinic - Chest pain/anxiety Author: ROBBIE HECTOR MD Date: 03/12/24 1. C hest pain She went to the [facility] ED on Mar 05 for SOB and chest tightness. They obtained an EKG, CXR, and serial troponins (2x) that were unremarkable. Heart score 3. They determined that this was likely due to anxiety but recommended outpatient evaluation for stable angina. - Referral to [facility] cardiology for outpatient ischemic workup Ordered: Referral [...] in this note. MD Marvin Milan, [address] [facility] Internal Medicine Staff Physician Extracted from:Title: [...] get enough exercise. You smoke. You take mhrr-nqq-hkubzra pain medicines. You have a family history [...] Follow these instructions at home: Medicines Take zsiw-eoj-ixhwmdb and prescription medicines only as told by your provider. If told, take a fiber supplement or probiotic. Managing constipation Your condition may cause constipation. To prevent or treat constipation, you may need to: Drink enough fluid to keep your pee (urine) pale yellow. Take xbvu-qjl-kbbexoc or prescription medicines. Eat foods that are [...] provider. Document Revised: 03/13/2023 Document Reviewed: 03/13/2023 [employer] Patient Education 2023 [employer]. Orthopedics Osteopenia Osteopenia is a loss of [...] hard liquor (44 mL). General instructions Take qsrt-muh-pdnkepd and prescription medicines only as told by [...] provider. Document Revised: 11/30/2020 Document Reviewed: 11/30/2020 [employer] Patient Education 2023 [employer]. Extracted from:Title: 0055C Clinic - Sinusitis/osteopenia Author: [...] treatment of underlying rhinitis - Continue with photo colorer 2. O ther specified counseling Recent bnoe [...] note. Robbie Hector MD Capt, [address] [facility], [facility] Internal Medicine Staff Physician Extracted from:Title: MANAGER STATE/WWE, pap Author: LACIE MARINO NP Date: 01/13/24 [...] test 5yrs if neg Ordered: AP Cytology MANAGER STATE HPV High Risk (16/18/Other) 3. O ther [...] vs expenditure f/u prn PVUA. 8. B CA 33.0 to 33.9 Pt questions addressed and written discharge instructions were provided to the patient. Lacie Marino Banner Extracted from:Title: 0055C Clinic - Dry mouth [...] note. Robbie Hector MD Capt, [address] [facility], [facility] Internal Medicine Staff Physician Extracted from:Title: [...] findings in this note. Pati Rhoades DO, [facility] Internal Medicine, [place] Extracted from:Title: 0055C [...] encouraged to return to clinic, present to [facility] or ER for persistent worsening or development of other concerning symptoms. Patient cites understanding and agrees with plan of care. A total of 30 minutes was spent on this visit reviewing previous notes, counseling the patient on the listed diagnoses, reviewing/ordering tests, adjusting medications, and documenting the findings in this note. Robbie Hector MD [facility], [facility] Internal Medicine Staff Physician Extracted from:Title: [...] and Culture if Indicated BNish Rhoades DO, [facility] , [facility] Internal Medicine, [place] Extracted from:Title: 0055 [...] this note. 2. O besity 3. B CA 30+ - obesity Patient also notes concerns about her wt. Discussed diet and exercise to benefit wt. Specifically recommended Mediterranean, low carb, and whole food plant based diet. Discussed ACC/AHA recommendations for exercise (150 min/wk). offered referral to nutrition, but paitent politely declines. Encouraged 6 month trial of diet and exercise regimen. Patient cites understanding and agrees. Pati Rhoades DO, [facility], , [facility] Internal Medicine, [employer] Future Scheduled TestsLaboratoryVitamin D 25 Hydroxy Level 04/12/24Lipid Panel 04/12/24 01/09/2025 Unknown Organization Functional Status Combined list of recent functional and cognitive assessments recorded at [facility] ([facility] Functional [place] Measurement (FIM) Scale: 1 = Total Assistance (Subject = 0% +), 2 = Maximal Assistance (Subject = 25% +), 3 = Moderate Assistance (Subject = 50% +), 4 = Minimal Assistance (Subject = 75% +), 5 = Supervision, 6 = Modified [place] (Device), 7 = Complete [place] (Timely, Safely). Assessment Date/Time Source Assessment Type Assessment Skill Assessment Score Assessment Details No data available for this section
--- NOTE | 2025-01-08 20:32 | ED.GENADULT ---
HPI - General Adult General Chief complaint: Extremity Injury, Lower Stated complaint: Right knee pain Time Seen by Provider: 01/08/25 19:39 History of Present Illness HPI narrative: Patient is a 59-year-old female who presents to the emergency department this evening complaining of right knee pain bed patient states that she does have chronic right knee issues and sees an orthopedic surgeon for steroid injections to her right knee joint. States that today she was walking up the stairs and she is not sure if she twisted her knee what happened but it gave away and she has been having pain with weight-bearing to the right knee since then. Denies any falls or trauma. No additional symptoms or concerns at this time. Related Data Allergies Allergy/AdvReac Type Severity Reaction Status Date / Time ampicillin Allergy Mild Unknown Verified 01/08/25 19:42 Review of Systems Review of Systems: All systems are reviewed and are negative unless stated otherwise in the HPI. FORMERLY [facility] Past Medical History Medical History Atherosclerosis TIA (transient ischemic attack) Obstructive sleep apnea Depression Hyperlipidemia COPD (chronic obstructive pulmonary disease) Asthma Surgical History Surgical History History of sinus surgery History of tonsillectomy History of bladder suspension procedure History of bilateral breast reduction surgery Social History Social History Smoking status: Former smoker Additional smoking assessment comments: Quit approx 2018 Gender identity (if verbalized by the patient): Female Exam Narrative: General: Alert, awake, afebrile, in no acute distress. HEENT: PERRL, no rhinorrhea, no post nasal drip, oropharynx clear. Neck: Trachea midline, no JVD, no lymphadenopathy. Cardiovascular: Regular rate and rhythm, no murmurs, rubs or gallops, no peripheral edema. Respiratory: Clear to auscultation bilaterally, no tachypnea, no wheezing, no rhonchi, no rubs, no respiratory distress. Abdomen: Soft, nontender, nondistended, no rebound, no guarding, no peritoneal signs. Musculoskeletal: No joint swelling or deformity, normal muscle tone, intact full range of motion at the right knee joint with intact knee flexion and knee extension. Skin: No rashes or petechia, no signs of infection. Psychiatric: Alert and oriented, normal behavior and judgment for situation. Neurological: Alert and oriented to person, place, and time. Follows all commands. No focal deficits, speech is clear and fluent. Course Vital Signs Vital signs: Vital Signs Temperature 97.4 F L 01/08/25 19:40 Pulse Rate 80 01/08/25 19:40 Respiratory Rate 20 01/08/25 19:40 Blood Pressure 145/84 H 01/08/25 19:40 Pulse Oximetry 97 01/08/25 19:40 Oxygen Delivery Room Air 01/08/25 19:40 Temperature 97.4 F L 01/08/25 19:40 Pulse Rate 80 01/08/25 19:40 Respiratory Rate 20 01/08/25 19:40 Blood Pressure 145/84 H 01/08/25 19:40 Pulse Oximetry 97 01/08/25 19:40 Oxygen Delivery Room Air 01/08/25 19:40 Medical Decision Making MDM Narrative Medical decision making narrative: The patient was evaluated by myself in the emergency department. History is obtained from patient who is an independent historian and physical exam was performed. External medical records were reviewed at this time. Patient was administered an oral [place] 5-325 mg. Imaging studies obtained included right knee x-ray which was independently interpreted by me revealing no acute process, which is pending final radiology interpretation. Differential diagnosis considerations include meniscal versus ligamentous injury, joint effusion, fracture, dislocation. Comorbidities impacting this visit include history of chronic knee pain. I have evaluated and discussed social determinants of health with the patient that could potentially impact subsequent diagnosis and treatment plans. On repeat assessment of the patient, reevaluation revealed that the patient is doing well and is in no acute distress. Patient symptoms have improved since she arrived to our emergency department. Repeat vital signs were all reviewed and noted to be stable. Differential diagnosis and treatment plan were discussed with the patient at bedside. Patient agrees with discussion and after shared medical decision making agrees with discharge. All questions were answered to the patient's satisfaction. Patient will follow up with her orthopedic surgeon in 3-5 days. Patient was provided with strict return precautions and instructed to return to the emergency department if any new or worsening symptoms develop. The patient was discharged in stable condition. Vital Signs Vital Signs: Vital Signs Temperature 97.4 F L 01/08/25 19:40 Pulse Rate 80 07/12/25 19:40 Respiratory Rate 20 01/08/25 19:40 Blood Pressure 145/84 H 01/08/25 19:40 Pulse Oximetry 97 01/08/25 19:40 Oxygen Delivery Room Air 01/08/25 19:40 Temperature 97.4 F L 01/08/25 19:40 Pulse Rate 80 01/08/25 19:40 Respiratory Rate 20 01/08/25 19:40 Blood Pressure 145/84 H 01/08/25 19:40 Pulse Oximetry 97 01/08/25 19:40 Oxygen Delivery Room Air 01/08/25 19:40 Discharge Plan Discharge Clinical Impression: Acute internal derangement of right knee Patient Disposition: Home Condition: Improved Instructions: Antibiotic Form, Knee Sprain (DC) Additional Instructions: Please follow-up with your orthopedic surgeon regarding your right knee pain within the next 3-5 days. You may need an MRI of the right knee for further evaluation of any meniscal or ligamentous injury. Return to the ED if any new or worsening symptoms develop. Patient Language: [place]ian Prescriptions: New hydrocodone-acetaminophen 5-325 mg tablet 1 tablet PO Q8H PRN (Reason: pain) Qty: 10 0RF No Action meloxicam 15 mg tablet 15 mg PO DAILY Qty: 14 0RF ibuprofen 600 mg tablet 600 mg PO TID PRN (Reason: pain) Qty: 20 0RF acetaminophen 500 mg capsule 1,000 mg PO Q6H PRN (Reason: pain) Qty: 20 0RF Follow-up/Referrals: Holley,Lucero Ledesma, [employer] [Primary Care Provider] - 3 Days Time of Disposition: 20:20
[2025-01-08] MEDS: HYDROcodone/acetaminophen (*CRX) 5-325 MG TABLET 1 TAB PO (20:45)
== END 2025-01-08 20:55 | disposition home or self-care (01) ==
PROVIDERS: Emergency Provider Emergency Medicine
DX: M23.91 Unspecified internal derangement of right knee (principal); E78.5 Hyperlipidemia, unspecified; J44.9 Chronic obstructive pulmonary disease, unspecified; G47.33 Obstructive sleep apnea (adult) (pediatric); F32.A Depression, unspecified; Z86.73 Personal history of transient ischemic attack (TIA), and cerebral infarction without residual deficits; Z87.891 Personal history of nicotine dependence
CPT/HCPCS: 73564; 99283; A9270

== ENCOUNTER 2025-02-01 07:09 | Outpatient (CLI) | payer OTHER, SELFPAY ==
--- NOTE | ~2025-02-01 | MR_ITS ---
MRI of the right knee Clinical history: Pain Technique: Coronal proton density and proton density-weighted images, sagittal proton-density and T2 fat-sat images, and axial proton-density fat-saturated images were acquired. Findings: Anterior and posterior cruciate ligaments are intact. Suspected partial tearing of the deep fibers of the MCL, possibly chronic in nature. Lateral collateral ligament complex is intact. Poplit eus tendon is intact. There is complex, predominantly horizontal tear of the body segment of the medial meniscus extending to the posterior horn. There is large anterior horn horizontal tear of the lateral meniscus extending to the body segment. 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 There is moderate chondromalacia at the medial and lateral joint lines. Extensor mechanism is intact. Small joint effusion present. Small Grullon's cyst. Impression: Complex, predominantly horizontal tear of the body segment of the medial meniscus, extending into the posterior horn. Large horizontal tear of the anterior horn of the lateral meniscus extending to the body segment. Suspected partial tearing of the deep fibers of the MCL, likely chronic in nature. Degenerative changes, as above. Reviewed, dictated and finalized at location M. Impression: Complex, predominantly horizontal tear of the body segment of the medial menisc us, extending into the posterior horn. Large horizontal tear of the anterior horn of the lateral meniscus extending to the body segment. Suspected partial tearing of the deep fibers of the MCL, likely chronic in natu re. Degenerative changes, as above.
== END 2025-02-01 07:10 | disposition home or self-care (01) ==
LOC: MICIMG 07:13
DX: S83.231A Complex tear of medial meniscus, current injury, right knee, initial encounter (principal); X58.XXXA Exposure to other specified factors, initial encounter; M17.11 Unilateral primary osteoarthritis, right knee
CPT/HCPCS: 73721